=== PATIENT | female | born 1955 | race Caucasian/White ===

== ENCOUNTER → 2018-08-28 08:52 | Outpatient (CLI) | payer OTHER, SELFPAY ==
[2018-08-28 09:48] LABS: Add Manual Diff / Slide Review NO; Basophils Absolute Auto 0 /uL (0-100); Basophils Percent Auto 1.1 % (0-2); Eosinophils Absolute Auto 100 /uL (0-450); Eosinophils Percent Auto 2.4 % (2-4); Hemoglobin 13.2 g/dL (12.0-16.0); Lymphocytes Absolute Auto 900 /uL (1100-4500); Lymphocytes Percent Auto 37.6 % (25-40); Mean Corpuscular HGB Conc 34.7 % (30-36); Mean Corpuscular Hemoglobin 33.4 PG (26-34); Mean Corpuscular Volume 96.4 fL (80-100); Monocytes Absolute Auto 200 /uL (0-900); Monocytes Percent Auto 7.7 % (3-14); Neutrophils Absolute Auto 1300 /uL (1500-7000); Neutrophils Percent Auto 51.2 % (50-75); Red Blood Cell Count 3.94 X10^6/uL (4.0-5.2); Red Cell Distribution Width 14.7 % (11.6-14.8); White Blood Cell Count 2.5 X10^3/uL (4.5-11.0)
[2018-08-28 10:17] LABS: Platelet Count 40 X10^3/uL (150-400)
[2018-08-28 10:20] LABS: Platelet Estimate Decreased on smear; RBC Morphology Normal Morphology
[2018-08-28 10:22] LABS: Alanine Aminotransferase 113 IU/L (9-52); Albumin 3.4 g/dL (3.5-5.0); Alkaline Phosphatase 94 U/L (38-126); Aspartate Aminotransferase 201 IU/L (14-36); BUN Creatinine Ratio 21.7 (6-22); Bilirubin Total 1.4 mg/dL (0.2-1.3); Blood Urea Nitrogen 13 mg/dL (7-17); Calcium 8.6 mg/dL (8.4-10.2); Carbon Dioxide 27 mmol/L (22-32); Chloride 106 mmol/L (98-107); Estimated Glomerular Filt Rate > 60.0 mL/min (>60); Globulin 3.4 g/dL (1.7-4.1); Glucose 135 mg/dL (80-110); HEMOLYSIS < 15 (0-50); Potassium 4.5 mmol/L (3.4-5.1); Sodium 138 mmol/L (137-145); Total Protein 6.8 g/dL (6.3-8.2)
[2018-09-01 15:01] LABS: Mitogen-NIL > 10.00 IU/mL; NIL 0.08 IU/mL; QuantiFERON TB NEGATIVE (Negative); TB1-NIL < 0.01 IU/mL; TB2-NIL 0.02 IU/mL
== END ==
PROVIDERS: Visit Provider Dermatology
DX: L40.0 Psoriasis vulgaris (principal)
CPT/HCPCS: 36415; 80053; 85025; 86480

== ENCOUNTER 2021-06-15 17:07 | Emergency (ER) | payer OTHER, SELFPAY ==
[2021-06-15] VITALS (10 sets, daily range): BP systolic 178–211; BP diastolic 77–101; PULSE 103–128; RESP 18–34; TEMP 37.2; O2SAT 97–100; BMI 27.4
[2021-06-15 17:44] LABS: Add Manual Diff / Slide Review NO; Basophils Absolute Auto 0 /uL (0-100); Basophils Percent Auto 1.1 % (0-2); Eosinophils Absolute Auto 100 /uL (0-450); Eosinophils Percent Auto 3.1 % (2-4); Hematocrit 24.7 % (36-46); Hemoglobin 8.4 g/dL (12.0-16.0); Lymphocytes Absolute Auto 1100 /uL (1100-4500); Lymphocytes Percent Auto 29.6 % (25-40); Mean Corpuscular HGB Conc 34.1 % (30-36); Mean Corpuscular Hemoglobin 31.8 PG (26-34); Monocytes Absolute Auto 400 /uL (0-900); Monocytes Percent Auto 12.4 % (3-14); Neutrophils Absolute Auto 1900 /uL (1500-7000); Neutrophils Percent Auto 53.8 % (50-75); Platelet Count 69 X10^3/uL (150-400); Red Blood Cell Count 2.65 X10^6/uL (4.0-5.2); Red Cell Distribution Width 13.7 % (11.6-14.8); White Blood Cell Count 3.6 X10^3/uL (4.5-11.0)
[2021-06-15 17:52] LABS: Alanine Aminotransferase 28 IU/L (<35); Albumin 2.5 g/dL (3.5-5.0); Albumin Globulin Ratio 0.8 (1.0-2.8); Alkaline Phosphatase 86 U/L (38-126); Aspartate Aminotransferase 86 IU/L (14-36); BUN Creatinine Ratio 23.4 (6-22); Bilirubin Total 0.9 mg/dL (0.2-1.3); Blood Urea Nitrogen 18 mg/dL (7-17); Calcium 8.5 mg/dL (8.4-10.2); Carbon Dioxide 30 mmol/L (22-32); Chloride 109 mmol/L (98-107); Estimated Glomerular Filt Rate > 60.0 mL/min (>60); Globulin 3.3 g/dL (1.7-4.1); Glucose 100 mg/dL (80-110); HEMOLYSIS < 15 (0-50); Lipase 200 U/L (23-300); Potassium 3.5 mmol/L (3.4-5.1); Sodium 139 mmol/L (137-145); Total Protein 5.8 g/dL (6.3-8.2)
--- NOTE | 2021-06-15 19:01 | ED_ITS ---
HPI - Abdominal Pain General Chief Complaint: Abdominal Pain Stated Complaint: sent by Dr Loredo for fluid draining Time Seen by Provider: 06/15/21 19:01 Source: patient Mode of arrival: Ambulatory History of Present Illness HPI narrative: Patient is 66-year-old female with history of hepatitis C and psoriasis presenting with worsening abdominal distension. She states that previously her abdomen distended she took diuretics prescribed by her primary care provider which seemed to help however the distension has gotten worse. She started a new medication for her psoriasis and injectable which she gives herself. She feels like this has caused the increased swelling in her abdomen. She has had increased fatigue. She denies any abdominal pain she has no shortness of breath no fever or chills. Denies any nausea or vomiting. Her abdomen is quite distended. Patient denies any alcohol use. Related Data Home Medications Medication Instructions Recorded Confirmed eszopiclone 1 mg tablet mg 06/15/21 meloxicam 7.5 mg tablet 7.5 mg PO DAILY PRN 06/15/21 06/15/21 torsemide 20 mg tablet 20 mg PO DAILY 06/15/21 06/15/21 Allergies Allergy/AdvReac Type Severity Reaction Status Date / Time Opioids - Morphine Analogues Allergy Mild severe Verified 06/15/21 18:57 nausea and insomnia erythromycin base AdvReac Intermediate really Verified 06/15/21 18:57 sick to stomach Review of Systems Review of Systems Narrative: GENERAL: Denies chills, fatigue, malaise, fever, sweats, travel HEENT: Denies sinus pain, ear pain, sore throat, difficulty swallowing, neck pain RESPIRATORY: Denies dyspnea, cough, wheezing, hemoptysis, sputum. CARDIOVASCULAR: Denies chest pain, palpitations, orthopnea, edema GASTROINTESTINAL: See HPI : Denies dysuria, frequency, incontinence, hematuria, urinary retention, flank pain. MUSCULOSKELETAL: Denies weakness, joint pain, or bony pain SKIN: No rash, no erythema, no pruritus NEUROLOGIC: Denies weakness, dizziness, headache, numbness, change in speech, confusion PSYCHIATRIC: No concerning psychosocial issues. 12 point review of systems is negative except for those stated above and HPI Patient History Surgical History Status post hysterectomy Status post tubal ligation Family History Brother Age: 72 High cholesterol Father Heart disease Social History Smoking Status: Never smoker Smoking Status: Never smoker alcohol intake frequency: other Substance Use Type: does not use Exam Initial Vital Signs Initial Vital Signs: Vital Signs Temperature 98.9 F 06/15/21 17:10 Pulse Rate 111 H 06/15/21 17:10 Respiratory Rate 18 06/15/21 17:10 Blood Pressure 197/101 H 06/15/21 17:10 Pulse Oximetry 100 06/15/21 17:10 GENERAL: Alert 66-year-old female well-appearing HEENT: Head atraumatic,EOMI, pupils reactive, face symmetric, moist mucous membranes CARDIOVASCULAR: Regular rate and rhythm without murmurs, rubs or gallops. RESPIRATORY: Breath sounds equal bilaterally, no wheezes rales or rhonchi. ABDOMEN: Distended positive fluid wave nontender no erythema EXTREMITIES: Normal range of motion, no clubbing. +2 pitting edema Neurovascularly intact NEUROLOGICAL: Alert and oriented x4.Normal gait and speech SKIN: Warm, dry, no laceration, no petechiae, no rashes or lesions. No jaundice Procedures Paracentesis Local Anesthetic: lidocaine 1% Amount of anesthesia used (mL): 5 Fluid: clear Post Procedure Exam: awake, alert, normal BP, normal HR and normal SpO2 Patient Tolerated Procedure: Well Complications: none Course Orders Ordered: ED Orders 06/15/21 17:34 CEA [Carcinoembryonic Antigen] Stat Cancer Antigen 125 Stat Complete Blood Count AUTO DIFF Stat Comprehensive Metabolic Panel Stat LDH [Lactate Dehydrogenase] Stat Lipase Stat 06/15/21 19:07 CT abdomen pelvis w con Stat US abdomen limited Stat 06/15/21 19:45 US pelvic complete Stat 06/15/21 20:10 PTT [Partial Thromboplastin Time] Stat Prothrombin Time INR Stat 06/15/21 20:50 Albumin Body Fluid Stat Body Fluid Culture Stat Cell Count w Diff Body Fluid Stat Glucose Body Fluid Stat LDH Body Fluid Stat Total Protein Body Fluid Stat Vital Signs Vital signs: Vital Signs - 8 hr 06/15/21 17:10 06/15/21 18:47 06/15/21 18:49 Temperature 98.9 F Pulse Rate 111 H 103 H Respiratory Rate 18 22 Blood Pressure 197/101 H 211/97 H Pulse Oximetry 100 100 06/15/21 18:50 06/15/21 19:00 06/15/21 19:30 Temperature Pulse Rate 104 H 105 H 110 H Respiratory Rate 22 32 H 34 H Blood Pressure 190/77 H 178/86 H 184/81 H Pulse Oximetry 99 97 97 06/15/21 20:03 06/15/21 20:30 06/15/21 21:29 Temperature Pulse Rate 128 H 104 H 108 H Respiratory Rate 24 Blood Pressure 186/89 H Pulse Oximetry 99 97 99 06/15/21 21:36 Temperature Pulse Rate 108 H Respiratory Rate 20 Blood Pressure 186/89 H Pulse Oximetry 100 MDM - Abdominal Pain Lab Data Result diagrams: 06/15/21 17:34 06/15/21 17:34 Labs: Lab Results 06/15/21 06/15/21 06/15/21 Range/Units 17:34 17:34 20:10 WBC 3.6 L (4.5-11.0) X10^3/uL RBC 2.65 L (4.0-5.2) X10^6/uL Hgb 8.4 L (12.0-16.0) g/dL Hct 24.7 L (36-46) % MCV 93.0 (80-100) fL MCH 31.8 (26-34) PG MCHC 34.1 (30-36) % RDW 13.7 (11.6-14.8) % Plt Count 69 L (150-400) X10^3/uL Neut % (Auto) 53.8 (50-75) % Lymph % (Auto) 29.6 (25-40) % Kendall % (Auto) 12.4 (3-14) % Eos % (Auto) 3.1 (2-4) % Baso % (Auto) 1.1 (0-2) % Neut # (Auto) 1900 (1645-6786) /uL Lymph # (Auto) 1100 (5175-2003) /uL Kendall # (Auto) 400 (0-900) /uL Eos # (Auto) 100 (0-450) /uL Baso # (Auto) 0 (0-100) /uL PT 14.5 H (10.1-12.7) SECONDS INR 1.3 (0.9-1.3) APTT 31 (26.4-36.2) SECONDS Sodium 139 (137-145) mmol/L Potassium 3.5 (3.4-5.1) mmol/L Chloride 109 H (98-107) mmol/L Carbon Dioxide 30 (22-32) mmol/L BUN 18 H (7-17) mg/dL Creatinine 0.77 (0.52-1.04) mg/dL Estimated GFR > 60.0 (>60) mL/min BUN/Creatinine Ratio 23.4 H (6-22) Glucose 100 (80-110) mg/dL Calcium 8.5 (8.4-10.2) mg/dL Total Bilirubin 0.9 (0.2-1.3) mg/dL AST 86 H (14-36) IU/L ALT 28 (<35) IU/L Alkaline Phosphatase 86 (38-126) U/L Total Protein 5.8 L (6.3-8.2) g/dL Albumin 2.5 L (3.5-5.0) g/dL Globulin 3.3 (1.7-4.1) g/dL Albumin/Globulin Ratio 0.8 L (1.0-2.8) Lipase 200 (23-300) U/L Fluid Color Fluid Appearance Fluid RBC /uL Fld Tot Nucleated Cell /uL Fluid Polynuclear WBCs % Fluid Mononuclear WBCs % Fluid Eosinophils % Fluid Other Cells % Body Fluid Clot Fluid Glucose mg/dL Fluid Total Protein g/dL Fluid Albumin g/dL Fluid LDH U/L 12/16/21 Range/Units 20:50 WBC (4.5-11.0) X10^3/uL RBC (4.0-5.2) X10^6/uL Hgb (12.0-16.0) g/dL Hct (36-46) % MCV (80-100) fL MCH (26-34) PG MCHC (30-36) % RDW (11.6-14.8) % Plt Count (150-400) X10^3/uL Neut % (Auto) (50-75) % Lymph % (Auto) (25-40) % Kendall % (Auto) (3-14) % Eos % (Auto) (2-4) % Baso % (Auto) (0-2) % Neut # (Auto) (2761-7959) /uL Lymph # (Auto) (8614-2544) /uL Kendall # (Auto) (0-900) /uL Eos # (Auto) (0-450) /uL Baso # (Auto) (0-100) /uL PT (10.1-12.7) SECONDS INR (0.9-1.3) APTT (26.4-36.2) SECONDS Sodium (137-145) mmol/L Potassium (3.4-5.1) mmol/L Chloride (98-107) mmol/L Carbon Dioxide (22-32) mmol/L BUN (7-17) mg/dL Creatinine (0.52-1.04) mg/dL Estimated GFR (>60) mL/min BUN/Creatinine Ratio (6-22) Glucose (80-110) mg/dL Calcium (8.4-10.2) mg/dL Total Bilirubin (0.2-1.3) mg/dL AST (14-36) IU/L ALT (<35) IU/L Alkaline Phosphatase (38-126) U/L Total Protein (6.3-8.2) g/dL Albumin (3.5-5.0) g/dL Globulin (1.7-4.1) g/dL Albumin/Globulin Ratio (1.0-2.8) Lipase (23-300) U/L Fluid Color Yellow Fluid Appearance Clear Fluid RBC < 1000 /uL Fld Tot Nucleated Cell 143 /uL Fluid Polynuclear WBCs 2 % Fluid Mononuclear WBCs 18 % Fluid Eosinophils 0 % Fluid Other Cells 80 % Body Fluid Clot No clots present Fluid Glucose 98 mg/dL Fluid Total Protein < 2.0 g/dL Fluid Albumin < 1.0 g/dL Fluid LDH 146 U/L [facility] Narrative Medical decision making narrative: The patient has new ascites with history of hepatitis C concern for cancer. She is also found to have a large ovarian cyst possibly ovarian cancer as well. She denies any alcohol use. She never had ascites or been diagnosed with liver failure. Paracentesis fluid reveals clear yellow with a SAAG 2.4, suggesting portal hypertension. Fluid has been sent for analysis no evidence SBP. 1 L of fluid was removed, unable to get any more off attempted repositioning the patient and adjusting catheter but unsuccessful. Patient has close follow-up with her primary care provider next week Discharge Plan Departure Patient Disposition: Home Clinical Impression: Ascites Instructions: DI for Ascites, DI for Abdominal Paracentesis Activity Restrictions/Additional Instructions: *You have been diagnosed with abdominal ascites *What to do: At this time testing is pending on the fluid. Only 1 L of fluid was removed. He will need to have more removed. Further workup will be needed to determine cause of fluid buildup. *Continue to take medications as directed torsemide daily as previously prescribed *Follow up with your primary care provider in 2-3 days *Return to ER if you should have increasing abdominal pain, fever, chills, redness, difficulty breathing or any new, worsening or concerning symptoms Prescriptions: No Action torsemide 20 mg tablet 20 mg PO DAILY 0RF meloxicam 7.5 mg tablet 7.5 mg PO DAILY PRN (Reason: Pain (Scale Score 1-3)) 0RF eszopiclone 1 mg tablet 0RF Referrals: Therese Loredo PA-C [Primary Care Provider] -
--- NOTE | 2021-06-15 19:07 | DI.CT.S_ITS ---
PROCEDURE: CT ABDOMEN PELVIS W CON INDICATIONS: new ascites hx hep c TECHNIQUE: After the administration of IV contrast, axial sections were acquired from the lung bases to the pubic symphysis. Coronal and sagittal reformats were performed. For radiation dose reduction, the following was used: automated exposure control, adjustment of mA and/or kV according to patient size. COMPARISON: None. FINDINGS: Image quality: Excellent. Lung bases: Unremarkable. Heart: No significant findings. Moderate hiatal hernia. ABDOMEN: Liver: Nodular cirrhotic morphology. No conspicuous lesion on this single phase exam. Gallbladder: Not distended. Gallbladder wall thickening. Pericholecystic fluid or ascites. Biliary ducts: Unremarkable. Pancreas: Unremarkable. Spleen: Spleen is prominent measuring 12.6 cm. Adrenal Glands: No nodule. Kidneys and Ureters: No hydronephrosis. Small right cortical hypodensity. Stomach and Bowel: No small bowel obstruction. The small bowel appears thickened. Multiple prominent loops of small bowel which are fluid-filled. Diverticulosis. Normal appendix. Peritoneum: Large volume of ascites. No free air. Ventral Wall: Probable umbilical hernia. Abdominal Nodes: No retroperitoneal or mesenteric adenopathy by size criteria. Vessels: Aorta and inferior vena cava are normal in size. Perisplenic varices. Splenorenal shunt. Paraesophageal varices. Main portal vein is patent. PELVIS: Pelvic Organs: Large cyst in the right paramedian pelvis measuring 8.4 x 7.3 cm. The uterus is absent. Bladder: Unremarkable. Pelvic Nodes: No enlarged lymph nodes. Miscellaneous: Right inguinal hernia containing ascites. Flank edema. Bones: No compression fracture. DDD. IMPRESSION: 1. Cirrhotic liver morphology. Large volume of ascites. Portal hypertension with upper abdominal varices, splenorenal shunt, paraesophageal varices. Prominent spleen. 2. Prominent loops of small bowel with wall thickening. This could be due to portal enteropathy. 3. Suspect large ovarian cyst measuring 8.4 cm. -Recommend initial further evaluation with pelvic ultrasound. Recommend follow-up gynecological consultation. Pelvic MRI with IV contrast could be considered for further evaluation. 4. Moderate-sized hiatal hernia. Right inguinal hernia. Dictated by: Juarez Mesa M.D. on 06/15/2021 at 19:30 Approved by: Juarez Mesa M.D. on 06/15/2021 at 19:40
--- NOTE | 2021-06-15 19:07 | DI.US.S_ITS ---
PROCEDURE: US ABDOMEN LIMITED INDICATIONS: ascites TECHNIQUE: Real-time scanning was performed of the abdominal quadrants, with image documentation. COMPARISON: [facility], CT, CT ABDOMEN PELVIS W CON, 06/15/2021, 19:15. FINDINGS: Large volume ascites in all 4 abdominal quadrants. The RLQ skin is marked for paracentesis. IMPRESSION: Large volume of ascites. Skin marked for paracentesis. Dictated by: Juarez Mesa M.D. on 06/15/2021 at 21:38 Approved by: Juarez Mesa M.D. on 06/15/2021 at 21:40
--- NOTE | 2021-06-15 19:45 | DI.US.S_ITS ---
PROCEDURE: US PELVIC COMPLETE INDICATIONS: large ovarian cyst TECHNIQUE: Real-time scanning was performed of the pelvic organs, with image documentation. Additional endovaginal scanning was necessary due to incomplete visualization of the adnexal and endometrial structures by transabdominal scanning. COMPARISON: [facility], CT, CT ABDOMEN PELVIS W CON, 06/15/2021, 19:15. FINDINGS: Uterus: Surgically absent. Ovaries: Ovaries are not well seen. Large midline anechoic pelvic cyst with a thin wall measuring 8.3 x 7.5 x 7.3 cm. There is a minimal vascularity at the cyst wall suspected. Other: Large volume of ascites IMPRESSION: Large midline pelvic cyst measuring 8.3 cm. Recommend gynecological consultation. We strive to produce accurate, complete, and clear reports of imaging services. To assist us in improving patient care, this report was composed using standard report templates and voice recognition software. Therefore, it may contain abnormal punctuation, insertions and/or omissions. Occasional wrong-word or sound-alike substitutions may occur. Though we review the report and make efforts to correct it, we do recommend that the report be read carefully in proper context to recognize any text inaccuracies. Dictated by: Juarez Mesa M.D. on 06/15/2021 at 21:35 Approved by: Juarez Mesa M.D. on 06/15/2021 at 21:38
[2021-06-15 20:27] LABS: INR 1.3 (0.9-1.3); Prothrombin Time 14.5 SECONDS (10.1-12.7)
[2021-06-15 20:30] LABS: PTT Partial Thromboplastin Tim 31 SECONDS (26.4-36.2)
[2021-06-15 21:22] LABS: Body Fluid Tot Nucleated Cells 143 /uL
[2021-06-15 21:28] LABS: Body Fluid Appearance CLEAR; Body Fluid Clotted? NO CLOTS PRESENT; Body Fluid Color YELLOW; Body Fluid Red Blood Cells < 1000 /uL
[2021-06-15 21:36] LABS: LDH Body Fluid 146 U/L
[2021-06-15 21:37] LABS: Albumin Body Fluid < 1.0 g/dL; Glucose Body Fluid 98 mg/dL; Total Protein Body Fluid < 2.0 g/dL
[2021-06-15 22:25] LABS: Eosinophils Body Fluid 0 %; Mononuclear WBC Body Fluid 18 %; Other Cells Body Fluid 80 %; Polynuclear WBC Body Fluid 2 %
[2021-06-16 06:03] LABS: Lactate Dehydrogenase 620 U/L (313-618)
[2021-06-16 06:42] LABS: Cancer Antigen 125 822 U/mL (0-35); Carcinoembryonic Antigen 21.2 ng/mL (0.1-3.0)
== END 2021-06-15 21:38 | disposition home or self-care (01) ==
PROVIDERS: Emergency Medicine; Emergency Provider Emergency Medicine; PCP Student in an Organized Health Care Education/Training Program; Referring Provider Student in an Organized Health Care Education/Training Program
DX: R18.8 Other ascites (principal)
CPT/HCPCS: 36415; 49082; 74177; 76705; 76856; 80053; 82042; 82378; 82945; 83615; 83690; 84157; 85025; 85610; 85730; 86304; 87070; 87075; 87205; 89051; 99284

== ENCOUNTER → 2021-08-03 12:38 | Outpatient (CLI) | payer OTHER, SELFPAY ==
[2021-08-03 14:07] LABS: HEMOLYSIS < 15 (0-50); Iron 37 ug/dL (37-170)
[2021-08-03 14:19] LABS: Percent Iron Saturation 9 % (15-50); Total Iron Binding Capacity 399 ug/dL (265-497); Transferrin 390 mg/dL (206-381)
[2021-08-03 19:38] LABS: Hepatitis B Surface Antigen NEGATIVE s/c (NEGATIVE)
[2021-08-04 02:47] LABS: Hepatitis B Surf AB Quant <3.1 mIU/mL (Immunity>9.9)
[2021-08-04 03:38] LABS: Hepatitis B Core Antibody Negative (Negative)
[2021-08-04 04:44] LABS: Immunoglobulin G, Quantitative 1526 mg/dL (586-1602)
[2021-08-04 06:19] LABS: Alpha Fetoprotein 2.6 ng/mL (0.0-8.3)
[2021-08-05 16:53] LABS: Anti Mitochondrial ABY IGG <20.0 Units (0.0-20.0); Smooth Muscle Antibody 16 Units (0-19)
[2021-08-05 17:36] LABS: ANA Screen, IFA Negative (.)
[2021-08-09 11:16] LABS: HCV Genotype 3
[2021-08-09 11:52] LABS: HCV Genotype 3 (.); HCV LOG 10 6.041 (.)
== END ==
PROVIDERS: PCP Student in an Organized Health Care Education/Training Program; Referring Provider Specialist; Visit Provider Specialist
DX: K74.69 Other cirrhosis of liver (principal); B19.20 Unspecified viral hepatitis C without hepatic coma; Z01.812 Encounter for preprocedural laboratory examination; Z20.822 Contact with and (suspected) exposure to COVID-19
CPT/HCPCS: 36415; 82105; 82784; 83516; 83540; 83550; 86038; 86704; 86706; 87340; 87522

== ENCOUNTER 2022-09-11 16:36 | Inpatient (IN) | payer OTHER, SELFPAY ==
[2022-09-11] VITALS (26 sets, daily range): BP systolic 118–149; BP diastolic 58–70; PULSE 87–112; RESP 16–26; TEMP 36.2–37; O2SAT 93–100; BMI 30.7
[2022-09-11 19:33] LABS: Add Manual Diff / Slide Review NO; Basophils Absolute Auto 100 /uL (0-100); Basophils Percent Auto 1.6 % (0-2); Eosinophils Absolute Auto 0 /uL (0-450); Eosinophils Percent Auto 0.7 % (2-4); Lymphocytes Absolute Auto 900 /uL (1100-4500); Lymphocytes Percent Auto 20.6 % (25-40); Mean Corpuscular HGB Conc 29.2 % (30-36); Mean Corpuscular Hemoglobin 20.9 PG (26-34); Mean Corpuscular Volume 71.6 fL (80-100); Monocytes Absolute Auto 400 /uL (0-900); Monocytes Percent Auto 7.9 % (3-14); Neutrophils Absolute Auto 3100 /uL (1500-7000); Neutrophils Percent Auto 69.2 % (50-75); Platelet Count 119 X10^3/uL (150-400); Red Blood Cell Count 2.23 X10^6/uL (4.0-5.2); Red Cell Distribution Width 19.1 % (11.6-14.8); White Blood Cell Count 4.4 X10^3/uL (4.5-11.0)
[2022-09-11 19:41] LABS: Hemoglobin 4.7 g/dL (12.0-16.0)
[2022-09-11 19:45] LABS: Alanine Aminotransferase 24 IU/L (<35); Albumin 2.5 g/dL (3.5-5.0); Albumin Globulin Ratio 0.9 (1.0-2.8); Alkaline Phosphatase 69 U/L (38-126); Aspartate Aminotransferase 52 IU/L (14-36); BUN Creatinine Ratio 14.9 (6-22); Bilirubin Total 3.1 mg/dL (0.2-1.3); Blood Urea Nitrogen 17 mg/dL (7-17); Calcium 7.7 mg/dL (8.4-10.2); Carbon Dioxide 16 mmol/L (22-32); Chloride 107 mmol/L (98-107); Estimated Glomerular Filt Rate 53 mL/min (>60); Globulin 2.8 g/dL (1.7-4.1); Glucose 131 mg/dL (80-110); Lipase 107 U/L (23-300); Potassium 4.4 mmol/L (3.4-5.1); Sodium 131 mmol/L (137-145); Total Protein 5.3 g/dL (6.3-8.2)
[2022-09-11 19:48] LABS: HEMOLYSIS 57 (0-50)
[2022-09-11 19:48] LABS: INR 1.8 (0.9-1.3); Prothrombin Time 20.8 SECONDS (10.1-12.7)
[2022-09-11 19:51] LABS: PTT Partial Thromboplastin Tim 23 SECONDS (26-36)
[2022-09-11 19:55] LABS: Lactate (Lactic Acid) 2.5 mmol/L (0.7-2.1)
--- NOTE | 2022-09-11 20:06 | ED_ITS ---
HPI - Abdominal Pain General Chief Complaint: Abdominal Pain Stated Complaint: Bloating, full of fluid per patient Time Seen by Provider: 09/11/22 20:06 Source: patient and family Mode of arrival: Family Vehicle History of Present Illness HPI narrative: Patient is a 67-year-old female history of hepatitis-C presenting today with increasing shortness of breath weakness and abdominal bloating. She reports that she had a viral illness a couple weeks ago she had a fever for a day generalized fatigue which mostly resolved. However she still is extremely tired short of breath with exertion. She is noticed increased abdominal distention over the last couple of days. In 2020 she required a paracentesis which was quite traumatic for her, she reports still having nightmares. She has been scared to come in because of it. She denies any nausea vomiting no diarrhea. She reports being swollen all over. Related Data Home Medications Medication Instructions Recorded Confirmed spironolactone 25 mg tablet 25 mg PO DAILY 09/11/22 09/11/22 Allergies Allergy/AdvReac Type Severity Reaction Status Date / Time erythromycin base Allergy Intermediate mouth Verified 09/11/22 17:32 thrush. Opioids - Morphine Analogues AdvReac Mild severe Verified 09/11/22 17:32 nausea and insomnia Review of Systems Review of Systems ROS Unobtainable: All systems reviewed & are unremarkable except as noted in HPI and below Patient History Surgical History Status post hysterectomy Status post tubal ligation Family History Brother Age: 73 High cholesterol Father Heart disease Social History household members: none Smoking Status: Never smoker alcohol intake: never Smoking Status: Never smoker alcohol intake frequency: other Substance Use Type: does not use Exam Initial Vital Signs Initial Vital Signs: Vital Signs Temperature 97.1 F L 09/11/22 17:21 Pulse Rate 87 09/11/22 17:21 Respiratory Rate 19 09/11/22 17:21 Blood Pressure 149/65 H 09/11/22 17:21 Pulse Oximetry 100 09/11/22 17:21 Oxygen Delivery Method Room Air 09/11/22 17:21 GENERAL: Alert anxious 67-year-old female HEENT: Head atraumatic,EOMI, pupils reactive, face symmetric, moist mucous membranes CARDIOVASCULAR: Regular rate and rhythm without murmurs, rubs or gallops. RESPIRATORY: Breath sounds equal bilaterally, no wheezes rales or rhonchi. ABDOMEN: Distention positive fluid wave EXTREMITIES: Normal range of motion, no clubbing. +3 edema Neurovascularly intact NEUROLOGICAL: Alert and oriented x4. SKIN: Warm, dry, no laceration, no petechiae, no rashes or lesions. Course Orders Ordered: Acetaminophen (Acetaminophen 325 Mg Tablet) 650 mg PO Q8H PRN PRN Reason: Fever/Mild Pain (1-3) Naloxone HCl (Naloxone 0.4 Mg/Ml Vial) 0.2 mg IV Q2MIN PRN PRN Reason: Opiate Reversal Ondansetron HCl (Ondansetron 4 Mg/2 Ml Inj) 4 mg IV Q8HR PRN PRN Reason: Nausea And Vomiting Oxycodone HCl (Oxycodone Ir 5 Mg Tablet) 5 mg PO Q6HR PRN PRN Reason: Pain, Moderate (4-6) Last Admin: 09/12/22 02:10 Dose: 5 mg Documented By: AW Discontinued Medications Etomidate (Etomidate 2 Mg/Ml 10 Ml Vial) 6 mg IV NOW ONE Stop: 09/11/22 22:15 Last Admin: 09/11/22 22:19 Dose: Not Given Documented By: RB Hydromorphone HCl (Hydromorphone 0.5 Mg Inj) 0.5 mg IV NOW ONE Stop: 09/11/22 23:01 Last Admin: 09/11/22 23:10 Dose: 0.5 mg Documented By: RB Lorazepam (Lorazepam 2 Mg/Ml Inj) 1 mg IV NOW ONE Stop: 09/11/22 22:11 Last Admin: 09/11/22 22:19 Dose: Not Given Documented By: RB Morphine Sulfate (Morphine 2 Mg/Ml Inj) 2 mg IV NOW ONE Stop: 09/11/22 20:26 Last Admin: 09/11/22 20:36 Dose: 2 mg Documented By: RB Ondansetron HCl (Ondansetron 4 Mg Odt) 4 mg PO NOW PRN PRN Reason: Nausea And Vomiting Ondansetron HCl (Ondansetron 4 Mg/2 Ml Inj) 4 mg IV NOW PRN PRN Reason: Nausea And Vomiting Last Admin: 09/11/22 20:36 Dose: 4 mg Documented By: RB Vital Signs Vital signs: Vital Signs - 8 hr 09/11/22 21:59 09/11/22 21:56 09/11/22 21:56 Temperature Pulse Rate 102 H 104 H Respiratory Rate 16 24 Blood Pressure 135/63 138/65 Pulse Oximetry 96 09/11/22 21:57 09/11/22 21:57 09/11/22 22:00 Temperature Pulse Rate 104 H Respiratory Rate Blood Pressure 135/63 134/59 L Pulse Oximetry 99 09/11/22 22:00 09/11/22 22:15 09/11/22 22:15 Temperature Pulse Rate 101 H 97 H Respiratory Rate 23 Blood Pressure 128/59 L Pulse Oximetry 98 96 09/11/22 22:30 09/11/22 22:30 09/11/22 22:41 Temperature Pulse Rate 97 H 98 H Respiratory Rate 25 H 23 Blood Pressure 122/58 L Pulse Oximetry 96 93 09/11/22 22:41 09/11/22 22:45 09/11/22 22:45 Temperature Pulse Rate 96 H Respiratory Rate 24 Blood Pressure 118/59 L 127/59 L Pulse Oximetry 97 09/11/22 23:00 09/11/22 23:00 09/11/22 22:05 Temperature 98.4 F Pulse Rate 97 H 100 H Respiratory Rate 26 H 19 Blood Pressure 128/60 136/60 Pulse Oximetry 96 09/11/22 23:06 09/11/22 23:00 09/11/22 23:16 Temperature 98.4 F 98.1 F 98.6 F Pulse Rate 97 H 97 H 100 H Respiratory Rate 25 H 26 H 22 Blood Pressure 122/58 L 128/60 141/65 H Pulse Oximetry 09/11/22 23:15 09/11/22 23:15 09/11/22 23:30 Temperature Pulse Rate 101 H Respiratory Rate 19 Blood Pressure 141/65 H 142/65 H Pulse Oximetry 98 09/11/22 23:30 09/11/22 23:45 09/11/22 23:45 Temperature Pulse Rate 100 H 95 H Respiratory Rate 19 19 Blood Pressure 143/65 H Pulse Oximetry 93 98 MDM - Abdominal Pain Lab Data 09/12/22 04:41 09/12/22 04:41 Labs: Lab Results 09/11/22 09/11/22 09/11/22 Range/Units 19:25 19:26 19:26 WBC 4.4 L (4.5-11.0) X10^3/uL RBC 2.23 L (4.0-5.2) X10^6/uL Hgb 4.7 L* (12.0-16.0) g/dL Hct 16.0 L* (36-46) % MCV 71.6 L (80-100) fL MCH 20.9 L (26-34) PG MCHC 29.2 L (30-36) % RDW 19.1 H (11.6-14.8) % Plt Count 119 L (150-400) X10^3/uL Neut % (Auto) 69.2 (50-75) % Lymph % (Auto) 20.6 L (25-40) % [place] % (Auto) 7.9 (3-14) % Eos % (Auto) 0.7 L (2-4) % Baso % (Auto) 1.6 (0-2) % Neut # (Auto) 3100 (6249-3553) /uL Lymph # (Auto) 900 L (1094-4540) /uL [place] # (Auto) 400 (0-900) /uL Eos # (Auto) 0 (0-450) /uL Baso # (Auto) 100 (0-100) /uL PT (10.1-12.7) SECONDS INR (0.9-1.3) APTT (26-36) SECONDS Sodium 131 L (137-145) mmol/L Potassium 4.4 (3.4-5.1) mmol/L Chloride 107 (98-107) mmol/L Carbon Dioxide 16 L (22-32) mmol/L BUN 17 (7-17) mg/dL Creatinine 1.14 H (0.52-1.04) mg/dL Estimated GFR 53 L (>60) mL/min BUN/Creatinine Ratio 14.9 (6-22) Glucose 131 H (80-110) mg/dL Lactate (0.7-2.1) mmol/L Calcium 7.7 L (8.4-10.2) mg/dL Total Bilirubin 3.1 H (0.2-1.3) mg/dL Conjugated Bilirubin (0.0-0.3) md/dL AST 52 H (14-36) IU/L ALT 24 (<35) IU/L Alkaline Phosphatase 69 (38-126) U/L Lactate Dehydrogenase 352 H (120-246) U/L Total Protein 5.3 L (6.3-8.2) g/dL Albumin 2.5 L (3.5-5.0) g/dL Globulin 2.8 (1.7-4.1) g/dL Albumin/Globulin Ratio 0.9 L (1.0-2.8) Lipase 107 (23-300) U/L Vitamin B12 748 (239-931) pg/mL Folate 9.3 (2.76-20.0) ng/mL SARS-CoV-2 (PCR) (Negative) Blood Type Antibody Screen Crossmatch 09/11/22 09/11/22 09/11/22 Range/Units 19:26 19:44 19:44 WBC (4.5-11.0) X10^3/uL RBC (4.0-5.2) X10^6/uL Hgb (12.0-16.0) g/dL Hct (36-46) % MCV (80-100) fL MCH (26-34) PG MCHC (30-36) % RDW (11.6-14.8) % Plt Count (150-400) X10^3/uL Neut % (Auto) (50-75) % Lymph % (Auto) (25-40) % [place] % (Auto) (3-14) % Eos % (Auto) (2-4) % Baso % (Auto) (0-2) % Neut # (Auto) (1162-8216) /uL Lymph # (Auto) (6287-5380) /uL [place] # (Auto) (0-900) /uL Eos # (Auto) (0-450) /uL Baso # (Auto) (0-100) /uL PT 20.8 H (10.1-12.7) SECONDS INR 1.8 H (0.9-1.3) APTT 23 L (26-36) SECONDS Sodium (137-145) mmol/L Potassium (3.4-5.1) mmol/L Chloride (98-107) mmol/L Carbon Dioxide (22-32) mmol/L BUN (7-17) mg/dL Creatinine (0.52-1.04) mg/dL Estimated GFR (>60) mL/min BUN/Creatinine Ratio (6-22) Glucose (80-110) mg/dL Lactate 2.5 H (0.7-2.1) mmol/L Calcium (8.4-10.2) mg/dL Total Bilirubin (0.2-1.3) mg/dL Conjugated Bilirubin 0.2 (0.0-0.3) md/dL AST (14-36) IU/L ALT (<35) IU/L Alkaline Phosphatase (38-126) U/L Lactate Dehydrogenase (120-246) U/L Total Protein (6.3-8.2) g/dL Albumin (3.5-5.0) g/dL Globulin (1.7-4.1) g/dL Albumin/Globulin Ratio (1.0-2.8) Lipase (23-300) U/L Vitamin B12 (239-931) pg/mL Folate (2.76-20.0) ng/mL SARS-CoV-2 (PCR) (Negative) Blood Type Antibody Screen Crossmatch 09/11/22 09/11/22 09/11/22 Range/Units 19:49 20:25 21:58 WBC (4.5-11.0) X10^3/uL RBC (4.0-5.2) X10^6/uL Hgb (12.0-16.0) g/dL Hct (36-46) % MCV (80-100) fL MCH (26-34) PG MCHC (30-36) % RDW (11.6-14.8) % Plt Count (150-400) X10^3/uL Neut % (Auto) (50-75) % Lymph % (Auto) (25-40) % [place] % (Auto) (3-14) % Eos % (Auto) (2-4) % Baso % (Auto) (0-2) % Neut # (Auto) (8338-1477) /uL Lymph # (Auto) (1770-9391) /uL [place] # (Auto) (0-900) /uL Eos # (Auto) (0-450) /uL Baso # (Auto) (0-100) /uL PT (10.1-12.7) SECONDS INR (0.9-1.3) APTT (26-36) SECONDS Sodium (137-145) mmol/L Potassium (3.4-5.1) mmol/L Chloride (98-107) mmol/L Carbon Dioxide (22-32) mmol/L BUN (7-17) mg/dL Creatinine (0.52-1.04) mg/dL Estimated GFR (>60) mL/min BUN/Creatinine Ratio (6-22) Glucose (80-110) mg/dL Lactate 2.4 H (0.7-2.1) mmol/L Calcium (8.4-10.2) mg/dL Total Bilirubin (0.2-1.3) mg/dL Conjugated Bilirubin (0.0-0.3) md/dL AST (14-36) IU/L ALT (<35) IU/L Alkaline Phosphatase (38-126) U/L Lactate Dehydrogenase (120-246) U/L Total Protein (6.3-8.2) g/dL Albumin (3.5-5.0) g/dL Globulin (1.7-4.1) g/dL Albumin/Globulin Ratio (1.0-2.8) Lipase (23-300) U/L Vitamin B12 (239-931) pg/mL Folate (2.76-20.0) ng/mL SARS-CoV-2 (PCR) Negative (Negative) Blood Type A Positive Antibody Screen Negative Crossmatch See Detail Imaging Data CT scan - abdomen/pelvis: Radiologist's Impression: PROCEDURE: CT LE LT W CON INDICATIONS: cellulitis TECHNIQUE: After the administration of intravenous contrast, 3 mm axial sections acquired of the left lower extremity, with coronal and sagittal reformatted images. COMPARISON: None. FINDINGS: No destructive or lytic or erosive lesion identified in the left lower extremity to suggest osteomyelitis. No soft tissue organized or rim enhancing fluid collection. Moderate to large suprapatellar knee joint effusion. No evidence of fracture or suspicious bone lesion. Reticular edema throughout the subcutaneous fat of the distal left thigh and left lower leg. IMPRESSION: Extensive lower extremity cellulitis which is circumferential below the level of the knee and predominantly anterior/lateral above the level of the knee. Large suprapatellar knee joint effusion without lipohemarthrosis to suggest fracture. No destructive or erosive or lytic osseous lesion to suggest osteomyelitis. No organized or rim enhancing fluid collection identified. Left inguinal lymphadenopathy is presumably related. Dictated by: Palomo Feliz M.D. on 09/11/2022 at 19:21 ECG Data Interpretation: Sinus tachycardia rate 101 ND interval 120 QRS [address] changes low voltage no MDM Narrative Medical decision making narrative: Patient 67-year-old female history of hepatitis-C ascites presenting today with ongoing fatigue some shortness of breath and increasing abdominal distention. She is go to be very anemic with hemoglobin 4.7 and hematocrit of 16. She denies any vomiting no hematemesis no bloody stool. Abdominal CT shows a large amount of ascites with splenic varices consistent with portal hypertension. Patient is hemodynamically stable she is not hypotensive or tachycardic. She is afebrile she is some mild abdominal discomfort. But I do not suspect spontaneous bacterial peritonitis. Unclear exactly why she is so anemic possibly decrease in production, no evidence of hemorrhage. INR 1.8 Patient would likely benefit a paracentesis however with acute anemia not indicated at this time. I also was the 1 to do the paracentesis last time she does not want me repeating the procedure. Dr. Carias accepts patient Discharge Plan Departure Patient Disposition: Admitted As Inpatient Clinical Impression: Anemia, Ascites Admit Date/Time: 09/11/22 23:56 Admit Provider: Alek Carias
--- NOTE | 2022-09-11 20:15 | DI.CT.S_ITS ---
PROCEDURE: CT ABDOMEN PELVIS W CON INDICATIONS: anemia, ascites TECHNIQUE: After the administration of IV contrast, axial sections were acquired from the lung bases to the pubic symphysis. Coronal and sagittal reformats were performed. For radiation dose reduction, the following was used: automated exposure control, adjustment of mA and/or kV according to patient size. COMPARISON: [facility], CT, CT ABDOMEN PELVIS W CON, 06/15/2021, 19:15. FINDINGS: Image quality: Excellent. Lung bases: There is small bilateral pleural effusions. There is mild compressive atelectasis as well as mild left basilar atelectasis along a partially visualized large hiatal hernia. Heart: Heart is normal in size. ABDOMEN: Liver: No mass lesion. Gallbladder: Gallbladder is partially distended without calcified gallstones or definite wall thickening. There are filling defects in the gallbladder compatible with biliary sludge or noncalcified stones. Biliary ducts: No biliary ductal dilatation. Pancreas: Unremarkable. Spleen: Normal in size. Adrenal Glands: No adrenal nodules. Kidneys and Ureters: No hydronephrosis. Stomach and Bowel: There is diffuse mild small bowel wall thickening. Small and large bowel loops are normal in caliber. There is colonic diverticulosis without acute diverticulitis. Peritoneum: There is a large amount of ascites. No free air. Ventral Wall: No hernia. Abdominal Nodes: No retroperitoneal or mesenteric adenopathy by size criteria. Vessels: Aorta and inferior vena cava are normal in size. There are gastroesophageal and splenic varices consistent with portal hypertension. PELVIS: Pelvic Organs: There is a left adnexal cyst measuring up to 3.0 cm. Bladder: Unremarkable. Pelvic Nodes: No enlarged lymph nodes. Miscellaneous: There is a small right inguinal hernia containing ascitic fluid. Bones: Visualized osseous structures demonstrate no suspicious focal lesions. IMPRESSION: 1. Large amount of ascites in the abdomen and pelvis without evidence of hemoperitoneum. 2. Nodular cirrhotic liver without a definite hepatic mass identified on the current study. If there is clinical suspicion for hepatoma, further evaluation may be obtained with a liver protocol MRI. 3. Gastroesophageal and splenic varices consistent with sequelae of portal hypertension. 4. Diffuse small bowel wall thickening is nonspecific but similar to the prior study and may be secondary to ascites. 5. Large hiatal hernia. 6. Small bilateral pleural effusions. Dictated by: Natan Benz M.D. on 09/11/2022 at 21:23 Approved by: Natan Benz M.D. on 09/11/2022 at 21:32
[2022-09-11] MEDS: MORPHINE 2 MG/ML INJ IV (20:36)
[2022-09-11] MEDS: ONDANSETRON 4 MG/2 ML INJ IV (20:36)
[2022-09-11 20:49] LABS: COVID19 -Nasal RAPID Negative (Negative)
--- NOTE | 2022-09-11 20:53 | P.HP_ITS ---
History of Present Illness History of Present Illness Date Patient Seen: 09/12/22 Time Patient Seen: 00:05 Chief complaint: Bloating, full of fluid per patient Narrative: Ms. Leonard is a 67W with PMH Hepatitic C cirrhosis who presents to the hospital with abdominal swelling and fatigue. She states she was diagnosed with hepatitis C nearly 40 years ago, she was treated years ago with medications, she is not sure what, but doubt it was any of the new antivirals. She has discussed Mavyret with her ground water pump installer, but she states that her physicial did not recommend being treated with this medication. She is on spironolactone at baseline. She states she was fine for a long time. She did present to the hospital May of 2021 for ascites and did get a paracentesis. She states that this was traumatic for her, she distrusts doctors and did not want to return to see any physician. She says her abdominal swelling had been absent until only in the last few days she has noted diffuse swelling in her extremities and abdomen. She has felt fatigued. No dizziness, lightheadedness. No vomiting blood, no dark stools, hematochezia. No colonoscopy or EGD. In the ED workup was done, vitals notable for afebrile, heart rate 80s-100s, blood pressure 140s/60s. Labs notable for WBC 4.4, hgb 4.7, plts 119. MCV 71. INR 1.8. Creatinine 1.14. Bili 3.1, AST/ALT 52/24. Albumin 2.5. Lactate 2.5. CT abdomen showed large ascites, cirrhotic liver without definite mass, varices, small bilateral pleural effusions. She was ordered for blood transfusion and admitted for further treatment. Patient History Surgical History Status post hysterectomy Status post tubal ligation Family & Social History Family History Brother Age: 73 High cholesterol Father Heart disease Safety & Behavioral: Feels Safe in Current Yes Environment Been Physically Hurt or No Threatened By a Person Tobacco & Substance use: Smoking Status Never smoker alcohol intake frequency other Substance Use Type does not use Meds Home Medications and Allergies Home Medications Medication Instructions Recorded Confirmed Type spironolactone 25 mg tablet 25 mg PO DAILY 09/11/22 09/11/22 History Allergies Allergy/AdvReac Type Severity Reaction Status Date / Time erythromycin base Allergy Intermediate mouth Verified 09/11/22 17:32 thrush. Opioids - Morphine Analogues AdvReac Mild severe Verified 09/11/22 17:32 nausea and insomnia Review of Systems Review of Systems Narrative: 14 systems reviewed and negative aside from what is noted in HPI Exam Vital Signs (past 8 hours): - 09/11/22 17:21 09/11/22 19:43 09/11/22 19:53 Temperature 97.1 F L Pulse Rate 87 90 96 H Respiratory Rate 19 23 Blood Pressure 149/65 H Pulse Oximetry 100 100 Oxygen Delivery Method Room Air 09/11/22 20:00 09/11/22 20:00 09/11/22 20:15 Temperature Pulse Rate 92 H 94 H Respiratory Rate 25 H Blood Pressure 141/63 H Pulse Oximetry 100 Oxygen Delivery Method Oxygen Delivery Method Room Air Narrative Exam Narrative: GEN: no acute distress HEENT: moist mucous membranes, pale, jaundiced NECK: trachea midline, no jvd CV: tachycardic, no murmurs PULM: clear bilaterally, no wheezes, rhonchi, rales ABD: soft, nontender, significantly distended, no rebound/guarding EXT: warm and well perfused, 2+ edema, anasarca NEURO: awake, alert, oriented, with no focal deficits Objective Labs 09/11/22 19:25 09/11/22 19:26 Labs: Laboratory Results - last 24 hr 09/11/22 09/11/22 09/11/22 19:25 19:26 19:44 WBC 4.4 L RBC 2.23 L Hgb 4.7 L* Hct 16.0 L* MCV 71.6 L MCH 20.9 L MCHC 29.2 L RDW 19.1 H Plt Count 119 L Neut % (Auto) 69.2 Lymph % (Auto) 20.6 L [place] % (Auto) 7.9 Eos % (Auto) 0.7 L Baso % (Auto) 1.6 Neut # (Auto) 3100 Lymph # (Auto) 900 L [place] # (Auto) 400 Eos # (Auto) 0 Baso # (Auto) 100 PT 20.8 H INR 1.8 H APTT 23 L Sodium 131 L Potassium 4.4 Chloride 107 Carbon Dioxide 16 L BUN 17 Creatinine 1.14 H Estimated GFR 53 L BUN/Creatinine Ratio 14.9 Glucose 131 H Lactate Calcium 7.7 L Total Bilirubin 3.1 H AST 52 H ALT 24 Alkaline Phosphatase 69 Total Protein 5.3 L Albumin 2.5 L Globulin 2.8 Albumin/Globulin Ratio 0.9 L Lipase 107 SARS-CoV-2 (PCR) Blood Type Antibody Screen Crossmatch 09/11/22 09/11/22 09/11/22 19:44 19:49 20:25 WBC RBC Hgb Hct MCV MCH MCHC RDW Plt Count Neut % (Auto) Lymph % (Auto) [place] % (Auto) Eos % (Auto) Baso % (Auto) Neut # (Auto) Lymph # (Auto) [place] # (Auto) Eos # (Auto) Baso # (Auto) PT INR APTT Sodium Potassium Chloride Carbon Dioxide BUN Creatinine Estimated GFR BUN/Creatinine Ratio Glucose Lactate 2.5 H Calcium Total Bilirubin AST ALT Alkaline Phosphatase Total Protein Albumin Globulin Albumin/Globulin Ratio Lipase SARS-CoV-2 (PCR) Negative Blood Type A Positive Antibody Screen Negative Crossmatch See Detail Assessment & Plan Assessment & Plan narrative: 1. Decompensated Hepatitis C cirrhosis -patient presented describing rapid accumulation of ascites -describes decades of hepatitis C, states she has not had full treatment -states she has discussed mavyret as possibility with her ground water pump installer -MELD of 23, [employer] C -large volume ascites on exam and confirmed with imaging -INR 1.8 -ordere abdominal ultrasound with dopplers to eval for portal vein thrombus as explanation for rapid fluid retention -plan for paracentesis, send for cultures, cell count, cytology -trend lfts daily -send hep c studies 2. Severe Anemia, along with pancytopenia -hgb on presentation of 4.7 -suspect secondary to cirrhosis -MCV is low in the 70s -she denies noting any bleeding -ordered for stool guaiac testing -check iron studies, retic count, b12/folate, ldh, haptoglobin -consider peripheral smear pending workup -ordered for PRBC, recheck hemoglobin after transfusion 3. ANA -suspect secondary to hypovolemia -will resuscitate with blood products -recheck creatinine daily I have discussed plan with the patient. I have discussed plan of care with ED physician and bedside nurse. I have reviewed labs, and CT imaging. CODE: Full Proxy: Shivani Jackson, sister Time Spent With Patient Critical Care time: I spent a total of [] minutes of critical care time on this patient's care today; this time is exclusive of procedural time. Quality MIPS - Meds 'Current medications' to include all prescriptions, [id number] products, herbals, cannabis/cannabidiol products, and vitamin/mineral/dietary (nutritional) supplements. I have utilized all available resources to obtain, update, or review the patient?s current medications. [If Yes, STOP here]: Yes
[2022-09-11 21:44] LABS: Reflexed Lactate in 2 Hours Y
[2022-09-11 22:15] LABS: Lactate 2HR (Lactic Acid Rflx) 2.4 mmol/L (0.7-2.1)
--- NOTE | 2022-09-11 22:30 | PC.NURSE ---
blood bag remaining volume at 22:30 when the rate change was 270mls not 55mls. SHELLIE Frey aware.
[2022-09-11] MEDS: HYDROMORPHONE 0.5 MG INJ IV (23:10)
[2022-09-12] VITALS (21 sets, daily range): BP systolic 127–161; BP diastolic 56–86; PULSE 85–104; RESP 16–24; TEMP 36.7–37.4; O2SAT 92–99; BMI 30.7
[2022-09-12 01:16] LABS: Bilirubin Conjugated 0.2 md/dL (0.0-0.3)
[2022-09-12 01:19] LABS: Lactate Dehydrogenase 352 U/L (120-246)
--- NOTE | 2022-09-12 01:34 | DI.US.S_ITS ---
PROCEDURE: US ABDOMEN LIMITED INDICATIONS: portal vein thrombus? TECHNIQUE: Real-time focused scanning was performed of the abdomen, with image documentation. Color and pulse Doppler interrogation was also performed on the area of interest. COMPARISON: [facility], US, US ABDOMEN LIMITED, 06/15/2021, 20:25. [facility], CT, CT ABDOMEN PELVIS W CON, 09/11/2022, 20:32. FINDINGS: Liver is small with a surface nodularity and coarsened echotexture, consistent with cirrhosis. Hepatopetal flow is seen in the main portal vein with minimal pulsatility. Visualized hepatic veins are patent. Hepatic artery is partially visualized with normal low resistance waveform. Gallbladder contains sludge without significant wall thickening. Sonographic [place] sign is negative. No intrahepatic or extrahepatic biliary ductal dilatation. Common bile duct measures 4.8 mm in diameter. Pancreas is not well visualized due to overlying bowel gas. A moderate to large amount of ascites is seen throughout the right upper quadrant. There is a right-sided pleural effusion. IMPRESSION: 1. Portal vein is patent with preserved hepatopetal flow. No portal venous thrombus is seen. 2. Hepatic cirrhosis with moderate to large volume of ascites. 3. Right pleural effusion is partially imaged. Approved by: Rupert Sterling M.D. on 09/12/2022 at 15:04
--- NOTE | 2022-09-12 01:34 | PATH_ITS ---
Note [facility] Accession Number: [id number] TESTS RESULT FLAG UNITS REF RANGE LAB Clinician Provided Cytology Information No. of containers..01 Other (Miscellaneous) Source: ABDOMINAL FLUID DIAGNOSIS: ABDOMINAL FLUID, PARACENTESIS. NEGATIVE FOR MALIGNANT CELLS. MESOTHELIAL CELLS ARE PRESENT. THIS INTERPRETATION INCLUDES EVALUATION OF A CELL BLOCK. Pathologist ICD10: R18.8 Signed out by: Neeraj Schulz MD, Pathologist NPI- [id number] Performed by: Reza Flores, Asthma Educator ([facility]) Gross description: 80 CC, YELLOW, HAZY RECEIVED: FRESH IN ORANGE CAP CONTAINER.VO /VDU 09/14/2022 07 Local FLAG LEGEND: L-Low Normal,H-High Normal,LL-Alert Low,HH-Alert High <-Panic Low,>-Panic High,A-Abnormal,AA-Critical Abnormal Performed at: 01 =Z [facility] [address] [place] [address] [address], [place] [address] Natan Camarillo MD, Performed at: [facility] [address], [place], [place] [id number] MD Natan Camarillo MD Phone: [phone]
[2022-09-12] MEDS: OXYCODONE IR 5 MG TABLET PO ×4 (02:10→21:00)
[2022-09-12 02:28] LABS: Folate 9.3 ng/mL (2.76-20.0); Vitamin B12 748 pg/mL (239-931)
[2022-09-12 05:04] LABS: INR 1.8 (0.9-1.3); Prothrombin Time 21.1 SECONDS (10.1-12.7)
[2022-09-12 05:06] LABS: Basophils Absolute Auto 0 /uL (0-100); Basophils Percent Auto 0.9 % (0-2); Eosinophils Absolute Auto 100 /uL (0-450); Eosinophils Percent Auto 1.5 % (2-4); Lymphocytes Absolute Auto 800 /uL (1100-4500); Lymphocytes Percent Auto 19.2 % (25-40); Mean Corpuscular HGB Conc 31.7 % (30-36); Mean Corpuscular Hemoglobin 23.7 PG (26-34); Monocytes Absolute Auto 500 /uL (0-900); Monocytes Percent Auto 10.8 % (3-14); Neutrophils Absolute Auto 2800 /uL (1500-7000); Neutrophils Percent Auto 67.6 % (50-75); Platelet Count 77 X10^3/uL (150-400); Red Cell Distribution Width 20.3 % (11.6-14.8); White Blood Cell Count 4.2 X10^3/uL (4.5-11.0)
[2022-09-12 05:12] LABS: Alanine Aminotransferase 21 IU/L (<35); Albumin 2.2 g/dL (3.5-5.0); Albumin Globulin Ratio 0.9 (1.0-2.8); Alkaline Phosphatase 65 U/L (38-126); Aspartate Aminotransferase 28 IU/L (14-36); BUN Creatinine Ratio 14.8 (6-22); Bilirubin Conjugated 0.3 md/dL (0.0-0.3); Bilirubin Total 5.2 mg/dL (0.2-1.3); Bilirubin Unconjugated 3.8 mg/dL (0.0-1.1); Blood Urea Nitrogen 16 mg/dL (7-17); Calcium 7.5 mg/dL (8.4-10.2); Carbon Dioxide 17 mmol/L (22-32); Chloride 108 mmol/L (98-107); Estimated Glomerular Filt Rate 56 mL/min (>60); Globulin 2.5 g/dL (1.7-4.1); Glucose 85 mg/dL (80-110); HEMOLYSIS < 15 (0-50); Potassium 4.1 mmol/L (3.4-5.1); Sodium 132 mmol/L (137-145); Total Protein 4.7 g/dL (6.3-8.2)
[2022-09-12 05:18] LABS: Hematocrit 20.3 % (36-46); Hemoglobin 6.4 g/dL (12.0-16.0)
[2022-09-12 05:19] LABS: Add Manual Diff / Slide Review SLIDE REVIEW; HEMOLYSIS < 15 (0-50); Iron 225 ug/dL (37-170)
[2022-09-12 05:22] LABS: Reticulocyte Count, Percent 3.8 % (1.1-2.6)
[2022-09-12 05:29] LABS: Percent Iron Saturation 46 % (15-50); Total Iron Binding Capacity 487 ug/dL (265-497); Transferrin 311 mg/dL (206-381)
[2022-09-12 07:09] LABS: Anisocytosis 2+; Poikilocytosis 1+
[2022-09-12] MEDS: PANTOPRAZOLE 40 MG VIAL IV ×2 (08:33→21:00)
--- NOTE | 2022-09-12 12:18 | PC.NURSE ---
patient has been NPO after breakfast
[2022-09-12] MEDS: BENZOCAINE/MENTHOL 1 LOZ PKT 1 EACH PO ×3 (12:23→21:26)
--- NOTE | 2022-09-12 14:58 | CM.DANOTE ---
Initial DCP Assessment Note Pt is a 67 yo female, resident of [facility] Hepatitic C cirrhosis who presents to the hospital with abdominal swelling and fatigue. She states she was diagnosed with hepatitis C nearly 40 years ago. Patient ordered for blood transfusion and admitted for further treatment. According to Dr Mars, patient is scheduled for a paracentesis today and may benefit from a scope by general surgery to assist in identifying etiology of severe anemia Attempted bedside assessment this morning and patient was fast asleep; according to RN, patient is indp and active at baseline. 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 Sister Shivani is her primary contact. PCP: Therese Loredo Payer: Sung HILLIARD No barriers identified at this time to patient's safe discharge home w/ close outpatient f/u recommended. CM team will plan to follow closely for needs JOMAR Smith Discharge Planning/Care Management CM Discharge Assessment Start: 09/12/22 14:38 Freq: Status: Active Protocol: Document 09/12/22 14:38 NORMA (Rec: 09/12/22 14:58 NORMA [id number]) Discharge Planning Assessment Assigned Passenger Brakeman JOMAR Edwards DPOA/Assigned Designee Name Shivani Jackson, sister ( [place]) Contact Information [phone] Advance Directives? No History Provided By Patient,Medical Record Prior Living Arrangements House Household Members none Type of transporation used prior to Drives own vehicle admit Independent with ADL's Yes Is patient alert and oriented? Yes Barriers to Discharge No Comment Expect return home w/close outpatient follow up recommended Discharge Plan Home Transportation Arrangement TBD Referrals Initiated None needed Additional Comment Following for any DC needs or concerns that may arise
[2022-09-12 15:46] LABS: Body Fluid Tot Nucleated Cells 58 /uL
[2022-09-12 15:48] LABS: Body Fluid Red Blood Cells 481 /uL
[2022-09-12 15:55] LABS: Body Fluid Appearance SLIGHTLY CLOUDY; Body Fluid Clotted? NO CLOTS PRESENT
[2022-09-12 16:11] LABS: Mononuclear WBC Body Fluid 98 %; Polynuclear WBC Body Fluid 2 %
[2022-09-12 16:16] LABS: Body Fluid Color YELLOW
[2022-09-12] MEDS: ALBUMIN HUMAN 50 GM/200 ML VIAL IV (16:24)
--- NOTE | 2022-09-12 18:37 | PM.PROC.1 ---
Procedures Date/Time Date of procedure: 09/12/22 Time of procedure: 14:45 General Procedure description: Paracentesis procedure note Prior to the procedure formal consent was obtained from the patient after discussion of risks and benefits of the procedure, and allowing the patient to ask any questions. Ultrasound was used to find a suitable pocket, and the site was marked. A time-out was performed. The site was then prepped and draped in usual sterile fashion, and a 16 gauge needle was inserted with return of clear yellow fluid. A total of approximately 6000 mL was obtained before drainage stopped. There was no bleeding and the patient tolerated the procedure well. There were no further complications. Patient was given 50 g of albumin IV.
[2022-09-13] VITALS (19 sets, daily range): BP systolic 116–146; BP diastolic 54–77; PULSE 83–113; RESP 14–20; TEMP 36.6–37.3; O2SAT 97–100; BMI 30.7
[2022-09-13 04:08] LABS: Haptoglobin 16 mg/dL (37-355)
--- NOTE | 2022-09-13 07:48 | P.PN_ITS ---
Subjective Subjective Interval history: Feels better since paracentesis yesterday. Less abdominal pressure. No chest pain or dyspnea. She denies hematemesis or blood per rectum ever. Exam Vital Signs (past 8 hours): - 09/13/22 00:00 09/13/22 01:00 09/13/22 04:00 Temperature 98.1 F 99.2 F Pulse Rate 113 H 98 H Respiratory Rate 18 19 Blood Pressure 118/64 131/54 L Pulse Oximetry 97 97 97 Oxygen Delivery Method Room Air Oxygen Flow Rate 0 09/13/22 05:00 Temperature Pulse Rate Respiratory Rate Blood Pressure Pulse Oximetry 97 Oxygen Delivery Method Room Air Oxygen Flow Rate 0 Oxygen Delivery Method Room Air Oxygen Flow Rate 0 Narrative Exam Narrative: GEN: no acute distress. Jaundiced. HEENT: moist mucous membranes, pale, icteric sclera NECK: trachea midline, no jvd CV: Regular, no murmurs PULM: clear bilaterally, no wheezes, rhonchi, rales ABD: soft, nontender, significantly distended, no rebound/guarding. Not tense. EXT: warm and well perfused, 2+ edema, anasarca NEURO: awake, alert, oriented, with normal cognition and speech. Objective Labs 09/13/22 07:55 09/13/22 07:55 Labs: Laboratory Results - last 24 hr 09/12/22 09/12/22 04:41 14:52 Haptoglobin 16 L Fluid Color Yellow Fluid Appearance Slightly cloudy Fluid RBC 481 Fld Tot Nucleated Cell 58 Fluid Polynuclear WBCs 2 Fluid Mononuclear WBCs 98 Fluid Eosinophils Not Reportable Fluid Other Cells Not Reportable Body Fluid Clot No clots present [facility] Surgical History Status post hysterectomy Status post tubal ligation Family History Brother Age: 73 High cholesterol Father Heart disease Social History household members: none Smoking Status: Never smoker alcohol intake: never Assessment & Plan Assessment & Plan narrative: 1. Decompensated Hepatitis C cirrhosis, present on admission and active -patient presented describing rapid accumulation of ascites (she has a multiyear history of ascites). She has been seen by Gastroenterology as scheduled [facility], but -describes decades of hepatitis C, states she has not had full treatment -states she has discussed Mavyret as possibility with her geophysical prospecting permit agent -MELD of 23, Child-Peoples Class C -large volume ascites on exam and confirmed with imaging status post paracentesis with approximately 4 L out on September 12. -INR 1.8 -ordere abdominal ultrasound with dopplers to eval for portal vein thrombus as explanation for rapid fluid retention -send hep c studies 2. Severe Anemia, along with pancytopenia. Present on admission and active. -hgb on presentation of 4.7 -suspect secondary to cirrhosis -MCV is low in the 70s -she denies noting any bleeding -EGD today -continue PPI, hemoglobin and hematocrit and needed. 3. ANA, present on admission and stable to improving. -suspect secondary to hypovolemia -will resuscitate with blood products -recheck creatinine daily I have discussed plan with the patient. I have discussed plan of care with ED physician and bedside nurse. I have reviewed labs, and CT imaging. CODE: Full Proxy: Shivani Manuel, sister Quality VTE Deep Vein Thrombosis/Pulmonary Embolism Present on Admission: Yes
[2022-09-13 08:11] LABS: Add Manual Diff / Slide Review NO; Basophils Absolute Auto 0 /uL (0-100); Basophils Percent Auto 0.4 % (0-2); Eosinophils Absolute Auto 100 /uL (0-450); Eosinophils Percent Auto 2.6 % (2-4); Hematocrit 19.9 % (36-46); Lymphocytes Absolute Auto 800 /uL (1100-4500); Lymphocytes Percent Auto 24.1 % (25-40); Mean Corpuscular HGB Conc 31.8 % (30-36); Mean Corpuscular Volume 75.6 fL (80-100); Monocytes Absolute Auto 300 /uL (0-900); Monocytes Percent Auto 9.4 % (3-14); Neutrophils Absolute Auto 2100 /uL (1500-7000); Neutrophils Percent Auto 63.5 % (50-75); Platelet Count 61 X10^3/uL (150-400); Red Blood Cell Count 2.63 X10^6/uL (4.0-5.2); Red Cell Distribution Width 19.9 % (11.6-14.8); White Blood Cell Count 3.4 X10^3/uL (4.5-11.0)
[2022-09-13 08:15] LABS: Hemoglobin 6.3 g/dL (12.0-16.0)
[2022-09-13 08:20] LABS: Alanine Aminotransferase 17 IU/L (<35); Albumin 2.2 g/dL (3.5-5.0); Alkaline Phosphatase 55 U/L (38-126); Aspartate Aminotransferase 29 IU/L (14-36); BUN Creatinine Ratio 14.4 (6-22); Bilirubin Total 2.4 mg/dL (0.2-1.3); Blood Urea Nitrogen 13 mg/dL (7-17); Calcium 7.5 mg/dL (8.4-10.2); Carbon Dioxide 19 mmol/L (22-32); Chloride 111 mmol/L (98-107); Estimated Glomerular Filt Rate > 60 mL/min (>60); Globulin 2.1 g/dL (1.7-4.1); Glucose 84 mg/dL (80-110); HEMOLYSIS < 15 (0-50); Sodium 133 mmol/L (137-145); Total Protein 4.3 g/dL (6.3-8.2)
[2022-09-13] MEDS: PANTOPRAZOLE 40 MG VIAL IV ×2 (08:37→21:59)
[2022-09-13] MEDS: OXYCODONE IR 5 MG TABLET PO ×2 (10:25→18:53)
--- NOTE | 2022-09-13 14:42 | PM.CN ---
History of Present Illness Consult details Date Patient Seen: 09/13/22 Time Patient Seen: 14:42 Chief complaint: Bloating, full of fluid per patient Reason for consult: Severe iron deficiency anemia Requesting provider: Donnie Mars Narrative: Fatigue is only symptom. Hgb around 4 on admission. No blood in stool or dark stools, no bloody emesis. Meds Home Medications and Allergies Home Medications Medication Instructions Recorded Confirmed Type spironolactone 25 mg tablet 25 mg PO DAILY 09/11/22 09/11/22 History Allergies Allergy/AdvReac Type Severity Reaction Status Date / Time erythromycin base Allergy Intermediate mouth Verified 09/13/22 14:26 thrush. Opioids - Morphine Analogues AdvReac Mild severe Verified 09/13/22 14:26 nausea and insomnia Review of Systems Review of Systems ROS: Yes All systems reviewed with the patient and are negative except as otherwise documented Exam Vital Signs (past 8 hours): - 09/13/22 08:52 09/13/22 10:10 09/13/22 10:27 Temperature 98.9 F 99 F 98 F Pulse Rate 94 H 92 H 92 H Respiratory Rate 18 20 18 Blood Pressure 131/54 L 131/56 L 130/60 Pulse Oximetry 98 Oxygen Delivery Method Oxygen Flow Rate 0 09/13/22 08:37 09/13/22 12:44 09/13/22 12:57 Temperature 98.5 F 98.5 F Pulse Rate 84 84 Respiratory Rate 18 18 Blood Pressure 125/58 L 125/58 L Pulse Oximetry 98 99 Oxygen Delivery Method Room Air Oxygen Flow Rate 0 Oxygen Delivery Method Room Air Oxygen Flow Rate 0 Const General: cooperative, healthy appearing and comfortable Nutritional Appearance: well nourished [facility] Head: normocephalic and atraumatic Ears: hearing grossly normal bilaterally Eyes General: appearance normal, both eyes and all related structures Neck Neck: normal visual inspection and trachea midline Resp Effort & Inspection: normal respiratory effort and able to speak in complete sentences Cardio Rate: regular rate Rhythm: regular rhythm GI Inspection: normal to inspection Palpation: soft Skin General: atrophy and ecchymosis Neuro General: patient alert, patient awake and patient oriented x3 Cognition: normal cognition Extrem General: muscle atrophy Right upper extremity: edema Left upper extremity: edema Psych Appearance: grossly normal Affect: normal affect Attitude: cooperative Judgment: judgment good Objective Labs 09/13/22 07:55 09/13/22 07:55 Labs: Laboratory Results - last 24 hr 09/11/22 09/12/22 09/12/22 19:49 04:41 14:52 WBC RBC Hgb Hct MCV MCH MCHC RDW Plt Count Neut % (Auto) Lymph % (Auto) [place] % (Auto) Eos % (Auto) Baso % (Auto) Neut # (Auto) Lymph # (Auto) [place] # (Auto) Eos # (Auto) Baso # (Auto) Haptoglobin 16 L Sodium Potassium Chloride Carbon Dioxide BUN Creatinine Estimated GFR BUN/Creatinine Ratio Glucose Calcium Total Bilirubin AST ALT Alkaline Phosphatase Total Protein Albumin Globulin Albumin/Globulin Ratio Fluid Color Yellow Fluid Appearance Slightly cloudy Fluid RBC 481 Fld Tot Nucleated Cell 58 Fluid Polynuclear WBCs 2 Fluid Mononuclear WBCs 98 Fluid Eosinophils Not Reportable Fluid Other Cells Not Reportable Body Fluid Clot No clots present Blood Type A Positive Antibody Screen Negative Crossmatch See Detail 09/13/22 09/13/22 07:55 07:55 WBC 3.4 L RBC 2.63 L Hgb 6.3 L* Hct 19.9 L* MCV 75.6 L MCH 24.0 L MCHC 31.8 RDW 19.9 H Plt Count 61 L Neut % (Auto) 63.5 Lymph % (Auto) 24.1 L [place] % (Auto) 9.4 Eos % (Auto) 2.6 Baso % (Auto) 0.4 Neut # (Auto) 2100 Lymph # (Auto) 800 L [place] # (Auto) 300 Eos # (Auto) 100 Baso # (Auto) 0 Haptoglobin Sodium 133 L Potassium 4.0 Chloride 111 H Carbon Dioxide 19 L BUN 13 Creatinine 0.90 Estimated GFR > 60 BUN/Creatinine Ratio 14.4 Glucose 84 Calcium 7.5 L Total Bilirubin 2.4 H AST 29 ALT 17 Alkaline Phosphatase 55 Total Protein 4.3 L Albumin 2.2 L Globulin 2.1 Albumin/Globulin Ratio 1.0 Fluid Color Fluid Appearance Fluid RBC Fld Tot Nucleated Cell Fluid Polynuclear WBCs Fluid Mononuclear WBCs Fluid Eosinophils Fluid Other Cells Body Fluid Clot Blood Type Antibody Screen Crossmatch [facility] Surgical History Status post hysterectomy Status post tubal ligation Family History Brother Age: 73 High cholesterol Father Heart disease Social History household members: none Tobacco & Substance Use Smoking Status: Never smoker alcohol intake: never Assessment & Plan Assessment & Plan narrative: Severe anemia, suspect GI source Plan: EGD Time Spent With Patient Time with patient: 30 to 49 minutes with 50% spent counseling/coordinating care Critical Care time: I spent a total of [] minutes of critical care time on this patient's care today; this time is exclusive of procedural time.
[2022-09-13] MEDS: LACTATED RINGERS 1,000 ML 42 ML IV (14:50)
--- NOTE | 2022-09-13 15:11 | PM.OP.EGD ---
Operative Date/Time/Diagnoses Date of procedure: 09/13/22 Time of procedure: 15:11 Pre-op diagnosis: anemia Post-op diagnosis: same Procedure & Clinicians Study performed: EGD Same procedure as scheduled: Yes Indications: Severe iron deficiency anemia Surgeon: Kenya Gifford Procedure Notes Procedure in detail: Preop diagnosis: Severe iron-deficiency anemia Postop diagnosis: Same Operative procedure: EGD with MAC Surgeon: Ramona Gifford MD Findings: Esophageal varices, large hiatal hernia, duodenal ulcer in a healing phase. No active bleeding Procedure: Patient placed in a supine position. Jaw lift was provided as scope was inserted into the esophagus and advanced into the stomach. I identified the pylorus intubated into duodenum. Insufflation extraction scope including a retroflex had the above findings. Impression: No active bleeding. Esophageal varices. Gastric varices. A healing duodenal ulcer. No biopsies taken due to INR of 1.8 and liver cirrhosis Plan: Recommend PPI for no less than 8 weeks b.i.d. to complete healing of the ulcer. May obtain H pylori serology to determine if antibiotics needed. Findings: duodenal ulcer, hiatal hernia and other findings (Esophageal and gastric varices) Specimen(s): none sent Complications: none Post-procedure Follow up: as needed Disposition: PACU
--- NOTE | 2022-09-13 15:23 | SUR.OPER ---
PATIENTS DENTURES AND RINGS PASSED OFF TO LIGHT BULB REPLACER IN GREEN DENTURE CUP.
[2022-09-14] VITALS (9 sets, daily range): BP systolic 123–147; BP diastolic 58–69; PULSE 84–104; RESP 16–19; TEMP 36.6–37.6; O2SAT 94–98
[2022-09-14 07:29] LABS: Add Manual Diff / Slide Review NO; Basophils Absolute Auto 0 /uL (0-100); Basophils Percent Auto 1.2 % (0-2); Eosinophils Absolute Auto 100 /uL (0-450); Eosinophils Percent Auto 2.5 % (2-4); Hematocrit 25.8 % (36-46); Hemoglobin 8.3 g/dL (12.0-16.0); Lymphocytes Absolute Auto 500 /uL (1100-4500); Mean Corpuscular HGB Conc 32.3 % (30-36); Mean Corpuscular Hemoglobin 25.1 PG (26-34); Mean Corpuscular Volume 77.8 fL (80-100); Monocytes Absolute Auto 300 /uL (0-900); Monocytes Percent Auto 9.9 % (3-14); Neutrophils Absolute Auto 2000 /uL (1500-7000); Neutrophils Percent Auto 69.4 % (50-75); Platelet Count 56 X10^3/uL (150-400); Red Blood Cell Count 3.32 X10^6/uL (4.0-5.2); Red Cell Distribution Width 20.8 % (11.6-14.8); White Blood Cell Count 2.9 X10^3/uL (4.5-11.0)
[2022-09-14 07:42] LABS: Alanine Aminotransferase 19 IU/L (<35); Albumin 2.2 g/dL (3.5-5.0); Alkaline Phosphatase 63 U/L (38-126); Aspartate Aminotransferase 35 IU/L (14-36); BUN Creatinine Ratio 12.5 (6-22); Bilirubin Total 2.6 mg/dL (0.2-1.3); Blood Urea Nitrogen 10 mg/dL (7-17); Calcium 7.4 mg/dL (8.4-10.2); Carbon Dioxide 20 mmol/L (22-32); Chloride 110 mmol/L (98-107); Estimated Glomerular Filt Rate > 60 mL/min (>60); Globulin 2.3 g/dL (1.7-4.1); Glucose 83 mg/dL (80-110); HEMOLYSIS < 15 (0-50); Potassium 4.1 mmol/L (3.4-5.1); Sodium 135 mmol/L (137-145); Total Protein 4.5 g/dL (6.3-8.2)
[2022-09-14 07:46] LABS: Anisocytosis 1+; Microcytosis 1+
[2022-09-14] MEDS: ONDANSETRON 4 MG/2 ML INJ IV (08:42)
[2022-09-14] MEDS: PANTOPRAZOLE 40 MG VIAL IV (08:42)
--- NOTE | 2022-09-14 11:18 | P.PN_ITS ---
Subjective Subjective Interval history: Nauseated and vomiting this AM (after EGD yest), no blood. Anorexia and w eakness. No abdomen pain. Exam Vital Signs (past 8 hours): - 09/14/22 04:00 09/14/22 04:00 09/14/22 09:23 Temperature 99.1 F 98.7 F Pulse Rate 97 H 93 H Respiratory Rate 16 18 Blood Pressure 131/58 L 138/69 Pulse Oximetry 96 94 97 Oxygen Delivery Method Room Air Oxygen Flow Rate 0 0 09/14/22 08:00 Temperature Pulse Rate Respiratory Rate Blood Pressure Pulse Oximetry 97 Oxygen Delivery Method Room Air Oxygen Flow Rate 0 Oxygen Delivery Method Room Air Oxygen Flow Rate 0 Narrative Exam Narrative: ? No acute distress, a little anxious.Jaundiced. Head is atraumatic.? Eyes are notable for symmetric pupils and icteric sclera. ? Neck is supple with normal range of motion, normal thyroid.? No adenopathy. ? Lungs are clear to auscultation with normal rate and effort. ? Heart is regular in rate and rhythm, with out murmur. ? Abdomen is soft, distended.? No focal tenderness, guarding or rebound. ? Extremities are with 2+ edema with good pedal pulses. ? Skin is free of rash, or lesions. ? Muscles with normal tone, joints are negative for deformity. ? Neurologically patient has normal cranial nerves and normal motor strength in all extremities Objective Labs 09/16/22 08:55 09/16/22 08:55 Labs: Laboratory Results - last 24 hr 09/14/22 09/14/22 07:09 07:09 WBC 2.9 L RBC 3.32 L Hgb 8.3 L Hct 25.8 L MCV 77.8 L MCH 25.1 L MCHC 32.3 RDW 20.8 H Plt Count 56 L Neut % (Auto) 69.4 Lymph % (Auto) 17.0 L [place] % (Auto) 9.9 Eos % (Auto) 2.5 Baso % (Auto) 1.2 Neut # (Auto) 2000 Lymph # (Auto) 500 L [place] # (Auto) 300 Eos # (Auto) 100 Baso # (Auto) 0 RBC Morphology See below Anisocytosis 1+ H Microcytosis 1+ H Sodium 135 L Potassium 4.1 Chloride 110 H Carbon Dioxide 20 L BUN 10 Creatinine 0.80 Estimated GFR > 60 BUN/Creatinine Ratio 12.5 Glucose 83 Calcium 7.4 L Total Bilirubin 2.6 H AST 35 ALT 19 Alkaline Phosphatase 63 Total Protein 4.5 L Albumin 2.2 L Globulin 2.3 Albumin/Globulin Ratio 1.0 PFSH Surgical History Status post hysterectomy Status post tubal ligation Family History Brother Age: 73 High cholesterol Father Heart disease Social History household members: none Smoking Status: Never smoker alcohol intake: never Assessment & Plan Assessment & Plan narrative: 1. Decompensated Hepatitis C cirrhosis, present on admission and active -patient presented describing rapid accumulation of ascites (she has a multiyear history of ascites).? She has been seen by Gastroenterology as scheduled [facility], but -describes decades of hepatitis C, states she has not had full treatment -states she has discussed Mavyret as possibility with her rn support services -MELD of 23, Child-Peoples Class C -large volume ascites on exam and confirmed with imaging status post paracentesis with approximately 4 L out on September 12. -INR 1.8 -ordere abdominal ultrasound with dopplers to eval for portal vein thrombus as explanation for rapid fluid retention -send hep c studies 2. Duodenal ulcer (not bleeding) and esophageal varices, present on admission and active. - cont PPI PO BID 2. Severe blood loss anemia, along with pancytopenia.? Present on admission and active. -MCV is low in the 70s (check iron stores) -she denies noting any bleeding -EGD 09/13 as above. -continue PPI, hemoglobin and hematocrit and needed. 3. ANA, present on admission and stable to improving. -suspect secondary to hypovolemia -will resuscitate with blood products -recheck creatinine daily Quality VTE Deep Vein Thrombosis/Pulmonary Embolism Present on Admission: Yes
[2022-09-14] MEDS: METOCLOPRAMIDE 10 MG/2 ML INJ IV (12:22)
[2022-09-14] MEDS: PANTOPRAZOLE DR 40 MG TABLET PO (21:02)
[2022-09-15] VITALS (10 sets, daily range): BP systolic 119–137; BP diastolic 52–66; PULSE 63–90; RESP 16–20; TEMP 36.3–37.2; O2SAT 93–100
[2022-09-15] MEDS: PANTOPRAZOLE DR 40 MG TABLET PO ×2 (06:52→20:31)
[2022-09-15 08:35] LABS: Basophils Absolute Auto 0 /uL (0-100); Basophils Percent Auto 1.3 % (0-2); Eosinophils Absolute Auto 100 /uL (0-450); Eosinophils Percent Auto 3.9 % (2-4); Hematocrit 25.5 % (36-46); Hemoglobin 8.1 g/dL (12.0-16.0); Lymphocytes Absolute Auto 500 /uL (1100-4500); Lymphocytes Percent Auto 23.1 % (25-40); Mean Corpuscular HGB Conc 31.9 % (30-36); Mean Corpuscular Hemoglobin 25.3 PG (26-34); Mean Corpuscular Volume 79.1 fL (80-100); Monocytes Absolute Auto 200 /uL (0-900); Monocytes Percent Auto 9.2 % (3-14); Neutrophils Absolute Auto 1500 /uL (1500-7000); Neutrophils Percent Auto 62.5 % (50-75); Platelet Count 49 X10^3/uL (150-400); Red Blood Cell Count 3.22 X10^6/uL (4.0-5.2); Red Cell Distribution Width 21.6 % (11.6-14.8); White Blood Cell Count 2.3 X10^3/uL (4.5-11.0)
[2022-09-15 08:36] LABS: Add Manual Diff / Slide Review SLIDE REVIEW
[2022-09-15 08:50] LABS: Alanine Aminotransferase 20 IU/L (<35); Albumin 2.2 g/dL (3.5-5.0); Alkaline Phosphatase 62 U/L (38-126); Aspartate Aminotransferase 31 IU/L (14-36); BUN Creatinine Ratio 13.3 (6-22); Blood Urea Nitrogen 10 mg/dL (7-17); Carbon Dioxide 21 mmol/L (22-32); Chloride 107 mmol/L (98-107); Estimated Glomerular Filt Rate > 60 mL/min (>60); Globulin 2.3 g/dL (1.7-4.1); Glucose 167 mg/dL (80-110); HEMOLYSIS < 15 (0-50); Potassium 4.1 mmol/L (3.4-5.1); Sodium 133 mmol/L (137-145); Total Protein 4.5 g/dL (6.3-8.2)
[2022-09-15 09:13] LABS: Anisocytosis 2+
[2022-09-15 09:14] LABS: Platelet Estimate Decreased on smear; Poikilocytosis 1+
[2022-09-15] MEDS: OXYCODONE IR 5 MG TABLET PO ×3 (11:46→23:43)
[2022-09-15] MEDS: TORSEMIDE 10 MG TABLET PO (12:39)
[2022-09-15] MEDS: SPIRONOLACTONE 25 MG TABLET PO (12:39)
--- NOTE | 2022-09-15 13:15 | CM.DPNOTE ---
Addendum entered by Karly Rikki, JOMAR 09/15/22 14:32: ADD: According to RN, patient not discharging today. New meds today- Torsemide, Spironolactone, Inderal. 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 In addition, patient's sister and VELVET are city assessor in [place] and will be checking in w.patient Patient is in the process of transferring her care to [facility] in [place] plan: discharge home today, no needs from this CM team, close outpatient follow up NORMA
[2022-09-15] MEDS: PROPRANOLOL 10 MG TABLET PO ×2 (15:01→20:31)
--- NOTE | 2022-09-15 16:39 | PM.PN.1 ---
Subjective Subjective Interval history: Worried about her LE edema, abdomen is a bit more distended but denies pain or dyspnea. started on diuretics today along with propranolol for her ascites and varices. Exam Vital Signs (past 8 hours): - 09/15/22 12:00 09/15/22 12:31 09/15/22 16:00 Temperature 98.9 F Pulse Rate 90 Respiratory Rate 20 Blood Pressure 132/64 Pulse Oximetry 98 97 97 Oxygen Delivery Method Room Air Room Air Oxygen Flow Rate 0 Oxygen Delivery Method Room Air Oxygen Flow Rate 0 Narrative Exam Narrative: GEN: no acute distress. HEENT: moist mucous membranes, pale, icteric sclera NECK: trachea midline, no jvd CV: Regular, no murmurs PULM: clear bilaterally, no wheezes, rhonchi, rales ABD: soft, nontender, significantly distended, no rebound/guarding. Not tense. EXT: warm and well perfused, 2+ edema, anasarca NEURO: awake, alert, oriented, with normal cognition and speech. Objective Labs 09/15/22 08:25 09/15/22 08:25 Labs: Laboratory Results - last 24 hr 09/15/22 09/15/22 08:25 08:25 WBC 2.3 L RBC 3.22 L Hgb 8.1 L Hct 25.5 L MCV 79.1 L MCH 25.3 L MCHC 31.9 RDW 21.6 H Plt Count 49 L Neut % (Auto) 62.5 Lymph % (Auto) 23.1 L [place] % (Auto) 9.2 Eos % (Auto) 3.9 Baso % (Auto) 1.3 Neut # (Auto) 1500 Lymph # (Auto) 500 L [place] # (Auto) 200 Eos # (Auto) 100 Baso # (Auto) 0 Platelet Estimate Decreased on smear RBC Morphology See below Poikilocytosis 1+ H Anisocytosis 2+ H Sodium 133 L Potassium 4.1 Chloride 107 Carbon Dioxide 21 L BUN 10 Creatinine 0.75 Estimated GFR > 60 BUN/Creatinine Ratio 13.3 Glucose 167 H Calcium 7.0 L Total Bilirubin 2.0 H AST 31 ALT 20 Alkaline Phosphatase 62 Total Protein 4.5 L Albumin 2.2 L Globulin 2.3 Albumin/Globulin Ratio 1.0 PFSH Surgical History Status post hysterectomy Status post tubal ligation Family History Brother Age: 73 High cholesterol Father Heart disease Social History household members: none Smoking Status: Never smoker alcohol intake: never Assessment & Plan Assessment & Plan narrative: 1. Decompensated Hepatitis C cirrhosis, present on admission and active -patient presented describing rapid accumulation of ascites (she has a multiyear history of ascites). She has been seen by Gastroenterology at [facility]. -describes decades of hepatitis C, states she has not had full treatment -states she has discussed Mavyret as possibility with her milk receiver -MELD of 23, Child-Peoples Class C -large volume ascites on exam and confirmed with imaging status post paracentesis with approximately 4 L out on September 12. -INR 1.8 -ordere abdominal ultrasound with dopplers to eval for portal vein thrombus as explanation for rapid fluid retention, which was negative for PVT -f/u hep C studies, pending quant -started on diuretics with torsemide and aldactone (patient reports furosemide with no effect previously) today, also started on propranolol with EVs seen on EGD yesterday. 2. Severe Anemia, due to duodenal ulcer along with pancytopenia. Present on admission and active. -hgb on presentation of 4.7 improved to 8.3 with transfusion, silght downtrend to 8.1. Continue to trend. -continue PPI -appreciate endoscopy by general surgery. 3. ANA, present on admission and improved. -suspect secondary to hypovolemia -will resuscitate with blood products -continue to follow I have discussed plan with the patient. Review previous documentation and lab evaluation. CODE: Full Proxy: Shivani Jackson, sister Time Spent With Patient Critical Care time: I spent a total of [] minutes of critical care time on this patient's care today; this time is exclusive of procedural time. Quality VTE Deep Vein Thrombosis/Pulmonary Embolism Present on Admission: Yes
--- NOTE | 2022-09-15 19:57 | PC.NURSE ---
[facility] Pt has no IV access, Report from [facility] RN verbal orders for No IV access by Dr. Lagos
[2022-09-15] MEDS: BENZOCAINE/MENTHOL 1 LOZ PKT 1 EACH PO (20:32)
[2022-09-16] VITALS: O2SAT 96
[2022-09-16 04:00] VITALS: O2SAT 96
[2022-09-16] MEDS: PANTOPRAZOLE DR 40 MG TABLET PO ×2 (06:04→13:42)
[2022-09-16 08:00] VITALS: BP 134/64; PULSE 64; RESP 18; TEMP 36.9; O2SAT 100
[2022-09-16] MEDS: SPIRONOLACTONE 25 MG TABLET PO (08:53)
[2022-09-16] MEDS: TORSEMIDE 10 MG TABLET PO ×2 (08:53→13:42)
[2022-09-16] MEDS: PROPRANOLOL 10 MG TABLET PO ×2 (08:53→13:42)
[2022-09-16 09:10] LABS: Add Manual Diff / Slide Review NO; Basophils Absolute Auto 0 /uL (0-100); Basophils Percent Auto 1.1 % (0-2); Eosinophils Absolute Auto 200 /uL (0-450); Eosinophils Percent Auto 6.9 % (2-4); Hematocrit 28.1 % (36-46); Hemoglobin 8.9 g/dL (12.0-16.0); Lymphocytes Absolute Auto 500 /uL (1100-4500); Lymphocytes Percent Auto 17.9 % (25-40); Mean Corpuscular HGB Conc 31.7 % (30-36); Mean Corpuscular Hemoglobin 25.2 PG (26-34); Mean Corpuscular Volume 79.4 fL (80-100); Monocytes Absolute Auto 300 /uL (0-900); Monocytes Percent Auto 11.4 % (3-14); Neutrophils Absolute Auto 1800 /uL (1500-7000); Neutrophils Percent Auto 62.7 % (50-75); Platelet Count 60 X10^3/uL (150-400); Red Blood Cell Count 3.54 X10^6/uL (4.0-5.2); Red Cell Distribution Width 22.8 % (11.6-14.8); White Blood Cell Count 2.8 X10^3/uL (4.5-11.0)
[2022-09-16 09:21] LABS: Alanine Aminotransferase 21 IU/L (<35); Albumin 2.2 g/dL (3.5-5.0); Albumin Globulin Ratio 0.9 (1.0-2.8); Alkaline Phosphatase 50 U/L (38-126); Aspartate Aminotransferase 32 IU/L (14-36); Blood Urea Nitrogen 12 mg/dL (7-17); Calcium 7.1 mg/dL (8.4-10.2); Carbon Dioxide 20 mmol/L (22-32); Chloride 109 mmol/L (98-107); Estimated Glomerular Filt Rate > 60 mL/min (>60); Globulin 2.5 g/dL (1.7-4.1); Glucose 156 mg/dL (80-110); HEMOLYSIS < 15 (0-50); Potassium 4.3 mmol/L (3.4-5.1); Sodium 133 mmol/L (137-145); Total Protein 4.7 g/dL (6.3-8.2)
[2022-09-16 09:33] LABS: Anisocytosis 2+
[2022-09-16 09:34] LABS: Poikilocytosis 1+
--- NOTE | 2022-09-16 10:38 | PM.DS.1 ---
History of Present Illness History of Present Illness Date Patient Seen: 09/16/22 Time Patient Seen: 10:38 Chief complaint: Bloating, full of fluid per patient Narrative: Per admitting provider, Ms. Leonard is a 67W with H Hepatitic C cirrhosis who presents to the hospital with abdominal swelling and fatigue. She states she was diagnosed with hepatitis C nearly 40 years ago, she was treated years ago with medications, she is not sure what, but doubt it was any of the new antivirals. She has discussed Mavyret with her cone picker, but she states that her physicial did not recommend being treated with this medication. She is on spironolactone at baseline. She states she was fine for a long time. She did present to the hospital May of 2021 for ascites and did get a paracentesis. She states that this was traumatic for her, she distrusts doctors and did not want to return to see any physician. She says her abdominal swelling had been absent until only in the last few days she has noted diffuse swelling in her extremities and abdomen. She has felt fatigued. No dizziness, lightheadedness. No vomiting blood, no dark stools, hematochezia. No colonoscopy or EGD. In the ED workup was done, vitals notable for afebrile, heart rate 80s-100s, blood pressure 140s/60s. Labs notable for WBC 4.4, hgb 4.7, plts 119. MCV 71. INR 1.8. Creatinine 1.14. Bili 3.1, AST/ALT 52/24. Albumin 2.5. Lactate 2.5. CT abdomen showed large ascites, cirrhotic liver without definite mass, varices, small bilateral pleural effusions. She was ordered for blood transfusion and admitted for further treatment. Discharge Providers Provider Date of admission: 09/11/22 23:56 Discharge Date: 09/16/22 Primary care physician: Therese Loredo PA-C Consults: 09/12/22 18:41 Consult to General Surgery Routine Comment: Consulting Provider: Kenya Gifford Reason for consultation: rule out UBIG with Hgb of 4.7 with EGD Discharge provider: Geoffrey Lagos DO Summary Hospital Course Discharge Diagnosis: 1. Decompensated Hepatitis C cirrhosis, present on admission and active 2. Severe acute blood loss Anemia, due to duodenal ulcer along with pancytopenia.? Present on admission and active. 3. ANA, present on admission and improved. Hospital Course: This is a 67 year old female with PMH of Hep C cirrhosis who was admitted with decompensated cirrhosis. She underwent large volume paracentesis, with removal of approximately 4L. Studies were negative for SBP. Ultrasound was obtained to rule out PVT which was negative. Hepatitis C quantative studies are pending at the time of discharge. She was also noted to be quite anemic with a presenting Hg of 4.7 likely causing a bump in her creatinine and ANA. She improved with transfusion to a Hg 8.3 and had no signs or symptoms of active bleeding after transfusion, and hg remained between 8-9 the remainder of her admission. EGD was performed which showed varices and a duodenal ulcer. PPI was continued at the time of discharge at 40 mg BID. She was also started on propranolol for her varices. She continued to have LE edema and ascites. Previously patient reported that furosemide was ineffective for her so torsemide and aldactone were initiated here as well with continued diuresis. She should stay on these until follow up with her cone picker as an outpatient. Time Spent with Patient Time spent: Greater than 30 minutes Exam Vital Signs (past 8 hours): - 09/16/22 04:00 09/16/22 08:00 Temperature 98.4 F Pulse Rate 64 Respiratory Rate 18 Blood Pressure 134/64 Pulse Oximetry 96 100 Oxygen Delivery Method Room Air Oxygen Flow Rate 0 Oxygen Delivery Method Room Air Oxygen Flow Rate 0 Narrative Exam Narrative: GEN: no acute distress. HEENT: moist mucous membranes, pale, icteric sclera NECK: trachea midline, no jvd CV: Regular, no murmurs PULM: clear bilaterally, no wheezes, rhonchi, rales ABD: soft, nontender, significantly distended, no rebound/guarding. Not tense. EXT: warm and well perfused, 2+ edema NEURO: awake, alert, oriented, with normal cognition and speech. Objective Labs 09/16/22 08:55 09/16/22 08:55 Labs: Laboratory Results - last 24 hr 09/16/22 09/16/22 08:55 08:55 WBC 2.8 L RBC 3.54 L Hgb 8.9 L Hct 28.1 L MCV 79.4 L MCH 25.2 L MCHC 31.7 RDW 22.8 H Plt Count 60 L Neut % (Auto) 62.7 Lymph % (Auto) 17.9 L [place] % (Auto) 11.4 Eos % (Auto) 6.9 H Baso % (Auto) 1.1 Neut # (Auto) 1800 Lymph # (Auto) 500 L [place] # (Auto) 300 Eos # (Auto) 200 Baso # (Auto) 0 RBC Morphology See below Poikilocytosis 1+ H Anisocytosis 2+ H Sodium 133 L Potassium 4.3 Chloride 109 H Carbon Dioxide 20 L BUN 12 Creatinine 0.86 Estimated GFR > 60 BUN/Creatinine Ratio 14.0 Glucose 156 H Calcium 7.1 L Total Bilirubin 3.0 H AST 32 ALT 21 Alkaline Phosphatase 50 Total Protein 4.7 L Albumin 2.2 L Globulin 2.5 Albumin/Globulin Ratio 0.9 L PFSH Surgical History Status post hysterectomy Status post tubal ligation Family History Brother Age: 73 High cholesterol Father Heart disease Social History household members: none Smoking Status: Never smoker alcohol intake: never Discharge Plan Discharge Plan Patient Disposition: Home Provider Discharge Comment: You were admitted to the hospital with anemia, found to have an ulcer in your small intestine. Improved with acid reducing medications which will continue. Medications prescribed as well on discharge to remove a bit more fluid. If your SBP (top #) is less than 100 reduce torsemide to 10 mg, or reduce dosing if your lower leg swelling goes away. Please follow up with your primary care provider and GI physician as soon as possible after discharge to review hospitalization and medication adjustments. Discharge orders & Medications Prescriptions: New propranolol 10 mg Tablet 10 mg PO TID 30 Days Qty: 90 0RF pantoprazole 40 mg Tablet,Delayed Release (Dr/Ec) 40 mg PO 0700,2100 30 Days Qty: 60 0RF torsemide 20 mg tablet 20 mg PO DAILY 30 Days Qty: 30 0RF (DME) blood pressure monitor Kit See Rx Instructions .Route Qty: 1 0RF Rx Instructions: One BP monitor for home monitoring Continued spironolactone 25 mg tablet 25 mg PO DAILY 30 Days Qty: 30 0RF Follow up/Referrals: Therese Loredo PA-C [Primary Care Provider] - Diet/Activity/Treatments Diet: Diet as Tolerated Activity: As tolerated Visit Report/Discharge Packet Stand Alone Forms: Patient Portal/API, Stroke Signs & Symptoms Discharge Data Primary Care Provider: Therese Loredo Quality VTE Deep Vein Thrombosis/Pulmonary Embolism Present on Admission: Yes
--- NOTE | 2022-09-16 11:40 | CM.DPC ---
DCP Discharge Home Per MD, pt is medically stable to d/c home today after repeat blood work and no identified barriers to discharge. Pt back to baseline independence and has local supportive friends. Plan: Patient to d/c home today via POV and outpt follow up and no further SW needs at this time. JOMAR Zarate
[2022-09-16 12:25] VITALS: BP 138/68; PULSE 69; RESP 17; TEMP 36.7; O2SAT 100
[2022-09-17 15:44] LABS: HCV Genotype 3 (.); HCV LOG 10 4.966 (.)
== END 2022-09-16 13:46 | disposition home or self-care (01) | DRG 441 ==
LOC: ED 20:04 → AC 23:57
PROVIDERS: Emergency Medicine; Internal Medicine; Surgery; Admitting Provider Internal Medicine; Emergency Provider Emergency Medicine; PCP Student in an Organized Health Care Education/Training Program; Referring Provider Emergency Medicine; Visit Provider Internal Medicine
PROC: 0DJ08ZZ Inspection of Upper Intestinal Tract, Via Natural or Artificial Opening Endoscopic (ICD-10-PCS; CPT 43235; principal; 2022-09-13 15:15)
DX: B17.10 Acute hepatitis C without hepatic coma (principal); K26.4 Chronic or unspecified duodenal ulcer with hemorrhage; D61.818 Other pancytopenia; N17.9 Acute kidney failure, unspecified; D62 Acute posthemorrhagic anemia; I85.00 Esophageal varices without bleeding; K74.60 Unspecified cirrhosis of liver; I86.4 Gastric varices; Z20.822 Contact with and (suspected) exposure to COVID-19
CPT/HCPCS: 36415; 36430; 43235; 74177; 76705; 80048; 80053; 80076; 82248; 82607; 82746; 83010; 83540; 83550; 83605; 83615; 83690; 85025; 85045; 85610; 85730; 86850; 86900; 86901; 87070; 87075; 87205; 87522; 87635; 89051; 93005; 93010; 93975; 93976; 96374; 96375; 99232; 99284; 99285; C9803; P9016; C9113; J1170; J2270; J2274; J2405; J2590; J2704; J2765; J3010; P9041; Q9967

== ENCOUNTER → 2022-10-05 10:29 | Outpatient (CLI) | payer OTHER, SELFPAY ==
[2022-09-12 00:40] VITALS: BMI 30.7
[2022-10-05 12:07] LABS: Add Manual Diff / Slide Review NO; Basophils Absolute Auto 0 /uL (0-100); Basophils Percent Auto 1.1 % (0-2); Eosinophils Absolute Auto 100 /uL (0-450); Eosinophils Percent Auto 2.3 % (2-4); Hematocrit 24.9 % (36-46); Hemoglobin 8.4 g/dL (12.0-16.0); Lymphocytes Absolute Auto 700 /uL (1100-4500); Mean Corpuscular HGB Conc 33.6 % (30-36); Mean Corpuscular Hemoglobin 27.6 PG (26-34); Mean Corpuscular Volume 82.4 fL (80-100); Monocytes Absolute Auto 300 /uL (0-900); Neutrophils Absolute Auto 1600 /uL (1500-7000); Neutrophils Percent Auto 60.6 % (50-75); Platelet Count 80 X10^3/uL (150-400); Red Blood Cell Count 3.02 X10^6/uL (4.0-5.2); Red Cell Distribution Width 29.3 % (11.6-14.8); White Blood Cell Count 2.7 X10^3/uL (4.5-11.0)
[2022-10-05 12:13] LABS: INR 1.5 (0.9-1.3); Prothrombin Time 17.2 SECONDS (10.1-12.7)
[2022-10-05 12:37] LABS: Alanine Aminotransferase 28 IU/L (<35); Albumin 2.3 g/dL (3.5-5.0); Albumin Globulin Ratio 0.9 (1.0-2.8); Alkaline Phosphatase 87 U/L (38-126); Aspartate Aminotransferase 62 IU/L (14-36); BUN Creatinine Ratio 21.9 (6-22); Bilirubin Total 2.4 mg/dL (0.2-1.3); Blood Urea Nitrogen 16 mg/dL (7-17); Calcium 7.6 mg/dL (8.4-10.2); Carbon Dioxide 26 mmol/L (22-32); Chloride 105 mmol/L (98-107); Cholesterol 95 mg/dL (140-199); Estimated Glomerular Filt Rate > 60 mL/min (>60); Globulin 2.7 g/dL (1.7-4.1); Glucose 88 mg/dL (80-110); HDL Cholesterol 20 mg/dL (40-60); HEMOLYSIS < 15 (0-50); LDL Cholesterol Calculated 58 mg/dL (<100); Potassium 3.6 mmol/L (3.4-5.1); Sodium 135 mmol/L (137-145); Triglycerides 84 mg/dL (35-150)
[2022-10-05 13:06] LABS: Anisocytosis 2+; Ovalocytes 1+
== END ==
PROVIDERS: PCP Student in an Organized Health Care Education/Training Program; Referring Provider Nurse Practitioner Family; Visit Provider Nurse Practitioner Family
DX: E87.1 Hypo-osmolality and hyponatremia (principal); Z13.220 Encounter for screening for lipoid disorders; D64.9 Anemia, unspecified
CPT/HCPCS: 36415; 80053; 80061; 85025; 85610

== ENCOUNTER → 2022-11-06 12:51 | Outpatient (CLI) | payer OTHER, SELFPAY ==
[2022-09-12 00:40] VITALS: BMI 30.7
[2022-11-06 14:22] LABS: INR 1.5 (0.9-1.3); Prothrombin Time 17.7 SECONDS (10.1-12.7)
[2022-11-06 14:24] LABS: PTT Partial Thromboplastin Tim 34 SECONDS (26-36)
[2022-11-06 14:33] LABS: Alanine Aminotransferase 20 IU/L (<35); Albumin 2.2 g/dL (3.5-5.0); Albumin Globulin Ratio 0.8 (1.0-2.8); Alkaline Phosphatase 82 U/L (38-126); Aspartate Aminotransferase 43 IU/L (14-36); BUN Creatinine Ratio 15.9 (6-22); Bilirubin Total 2.1 mg/dL (0.2-1.3); Blood Urea Nitrogen 13 mg/dL (7-17); Calcium 7.4 mg/dL (8.4-10.2); Carbon Dioxide 26 mmol/L (22-32); Chloride 107 mmol/L (98-107); Cholesterol 97 mg/dL (140-199); Estimated Glomerular Filt Rate > 60 mL/min (>60); Globulin 2.7 g/dL (1.7-4.1); Glucose 144 mg/dL (80-110); HDL Cholesterol 21 mg/dL (40-60); HEMOLYSIS < 15 (0-50); LDL Cholesterol Calculated 56 mg/dL (<100); Potassium 3.4 mmol/L (3.4-5.1); Sodium 136 mmol/L (137-145); Total Protein 4.9 g/dL (6.3-8.2); Triglycerides 99 mg/dL (35-150)
[2022-11-06 21:06] LABS: Hepatitis B Surface Antigen NEGATIVE s/c (NEGATIVE)
[2022-11-06 21:13] LABS: HIV 1 & 2 Ab/Ag 4th Gen Combo NEGATIVE (NEGATIVE)
[2022-11-08 14:58] LABS: Hepatitis Be Antibody Negative (Negative)
[2022-11-10 18:36] LABS: HCV Genotype 3 (.); HCV LOG 10 5.669 (.)
[2022-11-15 17:36] LABS: HLA B27 Negative (.)
== END ==
PROVIDERS: PCP Nurse Practitioner Family; Referring Provider Nurse Practitioner Family; Visit Provider Nurse Practitioner Family
DX: B18.2 Chronic viral hepatitis C (principal); M54.50 Low back pain, unspecified; R18.8 Other ascites; Z13.220 Encounter for screening for lipoid disorders; Z13.1 Encounter for screening for diabetes mellitus
CPT/HCPCS: 36415; 80053; 80061; 81374; 85610; 85730; 86707; 87340; 87389; 87522

== ENCOUNTER → 2022-11-07 09:53 | Outpatient (CLI) | payer OTHER, SELFPAY ==
[2022-09-12 00:40] VITALS: BMI 30.7
--- NOTE | 2022-11-07 | DI.US.S_ITS ---
PROCEDURE: US PARACENTESIS INDICATIONS: THERAPEUTIC PARACENTESIS - ASCITES TECHNIQUE: The indications, alternatives, benefits, risks, and complications of the procedure were explained to the patient. Written informed consent was obtained and placed in the chart. The abdomen and pelvis were examined sonographically, and an appropriate site was chosen for paracentesis. The skin was prepared and draped in the usual sterile fashion, and 1% lidocaine was infiltrated from the skin down through the peritoneal surface. A 19-gauge catheter-covered needle was then introduced into the peritoneal space, the catheter was advanced and the needle was withdrawn, and thereafter peritoneal fluid was withdrawn. The catheter was then removed and a dressing was applied. The fluid was discarded if the clinician did not order diagnostic testing of the fluid. COMPARISON: None. FINDINGS: Access site: Right lower quadrant Needle: One-Step centesis catheter with introducer needle. Fluid volume and description: 5L clear, yellow fluid. Fluid sent for diagnostic testing: None. Medications: 1% lidocaine for local anaesthesia. Complications: None. IMPRESSION: Successful ultrasound-guided paracentesis. Dictated by: Larry Adams M.D. on 11/07/2022 at 12:21 Approved by: Larry Adams M.D. on 11/07/2022 at 12:22
--- NOTE | 2022-11-07 09:56 | DI.RAD.S_ITS ---
PROCEDURE: XR THORACIC SPINE 2V INDICATIONS: back pain TECHNIQUE: 3 views of the thoracic spine were acquired. COMPARISON: None. FINDINGS: Bones: No fractures or dislocations. No suspicious bony lesions. 12 pairs of ribs are noted, and appear intact where visualized. Scattered areas of disc space narrowing are noted within the thoracic spine. Minimal paravertebral osteophytes. Soft tissues: No paravertebral stripe thickening. IMPRESSION: Scattered areas of degenerative disc space narrowing and osteophytes. Dictated by: Fabby Lee M.D. on 11/07/2022 at 20:52 Approved by: Fabby Lee M.D. on 11/07/2022 at 20:53
--- NOTE | 2022-11-07 09:56 | DI.RAD.S_ITS ---
PROCEDURE: XR LUMBAR SPINE 2-3V INDICATIONS: back pain TECHNIQUE: 3 views of the lumbar spine were acquired. COMPARISON: [facility] HODAN Wilcox, XR LUMBAR SPINE FLEXION EXTENSION, 11/07/2018, 14:19. FINDINGS: Bones: 5 [id number] vertebrae are present. There is trace retrolisthesis of L4 on L5. Moderate to severe disc and foraminal narrowing are present most notable at L5-S1. [id number] foraminal narrowing is present at L5-S1. No vertebral body compression fractures. No suspicious bony lesions. Soft tissues: Overlying bowel gas pattern is normal. No suspicious soft tissue calcifications. IMPRESSION: Degenerative changes most notable at L5-S1. Overall appearance is minimally progressive compared to prior exam. Dictated by: Fabby Lee M.D. on 11/07/2022 at 20:51 Approved by: Fabby Lee M.D. on 11/07/2022 at 20:52
== END ==
PROVIDERS: PCP Nurse Practitioner Family; Referring Provider Nurse Practitioner Family; Visit Provider Nurse Practitioner Family
DX: R18.8 Other ascites (principal); M54.50 Low back pain, unspecified; M47.817 Spondylosis without myelopathy or radiculopathy, lumbosacral region; M48.04 Spinal stenosis, thoracic region
CPT/HCPCS: 49083; 72070; 72100

== ENCOUNTER → 2022-11-12 13:53 | Outpatient (CLI) | payer OTHER, SELFPAY ==
[2022-09-12 00:40] VITALS: BMI 30.7
--- NOTE | 2022-11-12 13:57 | DI.US.S_ITS ---
PROCEDURE: US PARACENTESIS INDICATIONS: ASCITES TECHNIQUE: The indications, alternatives, benefits, risks, and complications of the procedure were explained to the patient. Written informed consent was obtained and placed in the chart. The abdomen and pelvis were examined sonographically, and an appropriate site was chosen for paracentesis. The skin was prepared and draped in the usual sterile fashion, and 1% lidocaine was infiltrated from the skin down through the peritoneal surface. A 19-gauge catheter-covered needle was then introduced into the peritoneal space, the catheter was advanced and the needle was withdrawn, and thereafter peritoneal fluid was withdrawn. The catheter was then removed and a dressing was applied. The fluid was discarded if the clinician did not order diagnostic testing of the fluid. COMPARISON: [facility], PARACENTESIS, 11/07/2022, 10:21. FINDINGS: Access site: Right lateral abdomen Needle: One-Step centesis catheter with introducer needle. Fluid volume and description: 5 liters of yellow, clear fluid Fluid sent for diagnostic testing: None Medications: 1% lidocaine for local anaesthesia. Complications: None. IMPRESSION: Successful ultrasound-guided paracentesis. Dictated by: Larry Adams M.D. on 11/12/2022 at 15:47 Approved by: Larry Adams M.D. on 11/12/2022 at 15:48
[2022-11-12 14:51] LABS: INR 1.4 (0.9-1.3); Prothrombin Time 16.1 SECONDS (10.1-12.7)
[2022-11-12 14:53] LABS: PTT Partial Thromboplastin Tim 33 SECONDS (26-36)
[2022-11-12 15:03] LABS: Alanine Aminotransferase 20 IU/L (<35); Albumin 1.9 g/dL (3.5-5.0); Albumin Globulin Ratio 0.8 (1.0-2.8); Alkaline Phosphatase 70 U/L (38-126); Aspartate Aminotransferase 39 IU/L (14-36); BUN Creatinine Ratio 15.2 (6-22); Blood Urea Nitrogen 14 mg/dL (7-17); Calcium 7.2 mg/dL (8.4-10.2); Carbon Dioxide 24 mmol/L (22-32); Chloride 104 mmol/L (98-107); Cholesterol 92 mg/dL (140-199); Estimated Glomerular Filt Rate > 60 mL/min (>60); Globulin 2.5 g/dL (1.7-4.1); Glucose 155 mg/dL (80-110); HDL Cholesterol 18 mg/dL (40-60); HEMOLYSIS < 15 (0-50); LDL Cholesterol Calculated 59 mg/dL (<100); Potassium 3.7 mmol/L (3.4-5.1); Sodium 131 mmol/L (137-145); Total Protein 4.4 g/dL (6.3-8.2); Triglycerides 77 mg/dL (35-150)
[2022-11-12 15:52] LABS: Hepatitis B Surface Antigen NEGATIVE s/c (NEGATIVE)
[2022-11-12 16:01] LABS: HIV 1 & 2 Ab/Ag 4th Gen Combo NEGATIVE (NEGATIVE)
[2022-11-13 05:29] LABS: Hepatitis B Surf AB Quant <3.1 mIU/mL (Immunity>9.9)
[2022-11-16 18:26] LABS: HLA B27 Negative (.)
[2022-11-16 20:16] LABS: HCV Genotype 3 (.); HCV LOG 10 4.888 (.)
== END ==
PROVIDERS: PCP Nurse Practitioner Family; Referring Provider Nurse Practitioner Family; Visit Provider Nurse Practitioner Family
DX: R18.8 Other ascites (principal); B18.2 Chronic viral hepatitis C; Z13.220 Encounter for screening for lipoid disorders; M54.50 Low back pain, unspecified; Z13.1 Encounter for screening for diabetes mellitus
CPT/HCPCS: 36415; 49083; 80053; 80061; 81374; 85610; 85730; 86706; 87340; 87389; 87522

== ENCOUNTER → 2022-11-15 07:52 | Outpatient (CLI) | payer OTHER, SELFPAY ==
[2022-09-12 00:40] VITALS: BMI 30.7
--- NOTE | 2022-11-15 | DI.US.S_ITS ---
PROCEDURE: US PARACENTESIS INDICATIONS: ASCITES TECHNIQUE: The indications, alternatives, benefits, risks, and complications of the procedure were explained to the patient. Written informed consent was obtained and placed in the chart. The abdomen and pelvis were examined sonographically, and an appropriate site was chosen for paracentesis. The skin was prepared and draped in the usual sterile fashion, and 1% lidocaine was infiltrated from the skin down through the peritoneal surface. A 19-gauge catheter-covered needle was then introduced into the peritoneal space, the catheter was advanced and the needle was withdrawn, and thereafter peritoneal fluid was withdrawn. The catheter was then removed and a dressing was applied. The fluid was discarded if the clinician did not order diagnostic testing of the fluid. COMPARISON: [facility], PARACENTESIS, 11/12/2022, 14:31. [facility], PARACENTESIS, 11/07/2022, 10:21. FINDINGS: Access site: Right lower quadrant Needle: One-Step centesis catheter with introducer needle. Fluid volume and description: 5000 mL; clear. Fluid sent for diagnostic testing: Not requested by referring physician. Medications: 1% lidocaine for local anaesthesia. Complications: None. IMPRESSION: Successful ultrasound-guided paracentesis. Dictated by: Santiago De La Rosa M.D. on 11/15/2022 at 12:04 Approved by: Santiago De La Rosa M.D. on 11/15/2022 at 12:04
== END ==
LOC: US 07:52
PROVIDERS: PCP Nurse Practitioner Family; Referring Provider Nurse Practitioner Family; Visit Provider Nurse Practitioner Family
DX: R18.8 Other ascites (principal)
CPT/HCPCS: 49083

== ENCOUNTER → 2022-11-28 13:42 | Outpatient (CLI) | payer OTHER, SELFPAY ==
[2022-09-12 00:40] VITALS: BMI 30.7
--- NOTE | 2022-11-28 | DI.US.S_ITS ---
PROCEDURE: US PARACENTESIS INDICATIONS: ASCITES TECHNIQUE: The indications, alternatives, benefits, risks, and complications of the procedure were explained to the patient. Written informed consent was obtained and placed in the chart. The abdomen and pelvis were examined sonographically, and an appropriate site was chosen for paracentesis. The skin was prepared and draped in the usual sterile fashion, and 1% lidocaine was infiltrated from the skin down through the peritoneal surface. A 19-gauge catheter-covered needle was then introduced into the peritoneal space, the catheter was advanced and the needle was withdrawn, and thereafter peritoneal fluid was withdrawn. The catheter was then removed and a dressing was applied. The fluid was discarded if the clinician did not order diagnostic testing of the fluid. COMPARISON: [facility], PARACENTESIS, 11/15/2022, 8:06. FINDINGS: Access site: Right lower quadrant Needle: One-Step centesis catheter with introducer needle. Fluid volume and description: 5000 cc yellow clear Fluid sent for diagnostic testing: None Medications: 1% lidocaine for local anaesthesia. Complications: None. Procedure was well tolerated. IMPRESSION: Successful ultrasound-guided therapeutic paracentesis. 5 L removed. Dictated by: Juarez Mesa M.D. on 11/28/2022 at 16:37 Approved by: Juarez Mesa M.D. on 11/28/2022 at 16:38
== END ==
LOC: US 13:42
PROVIDERS: PCP Nurse Practitioner Family; Referring Provider Nurse Practitioner Family; Visit Provider Nurse Practitioner Family
DX: R18.8 Other ascites (principal)
CPT/HCPCS: 49083

== ENCOUNTER → 2022-11-30 12:26 | Outpatient (CLI) | payer OTHER, SELFPAY ==
[2022-09-12 00:40] VITALS: BMI 30.7
--- NOTE | 2022-11-30 | DI.US.S_ITS ---
PROCEDURE: US PARACENTESIS INDICATIONS: ASCITIES TECHNIQUE: The indications, alternatives, benefits, risks, and complications of the procedure were explained to the patient. Written informed consent was obtained and placed in the chart. The abdomen and pelvis were examined sonographically, and an appropriate site was chosen for paracentesis. The skin was prepared and draped in the usual sterile fashion, and 1% lidocaine was infiltrated from the skin down through the peritoneal surface. A 19-gauge catheter-covered needle was then introduced into the peritoneal space, the catheter was advanced and the needle was withdrawn, and thereafter peritoneal fluid was withdrawn. The catheter was then removed and a dressing was applied. The fluid was discarded if the clinician did not order diagnostic testing of the fluid. COMPARISON: [facility], , PARACENTESIS, 11/28/2022, 13:47. FINDINGS: Access site: Right lower quadrant Needle: One-Step centesis catheter with introducer needle. Fluid volume and description: 5000 mL; clear. Fluid sent for diagnostic testing: Not requested by referring physician. Medications: 1% lidocaine for local anaesthesia. Complications: None. IMPRESSION: Successful ultrasound-guided paracentesis. Dictated by: Santiago De La Rosa M.D. on 12/01/2022 at 8:14 Approved by: Santiago De La Rosa M.D. on 12/01/2022 at 8:15
== END ==
LOC: US 12:27
PROVIDERS: PCP Nurse Practitioner Family; Referring Provider Nurse Practitioner Family; Visit Provider Nurse Practitioner Family
DX: R18.8 Other ascites (principal)
CPT/HCPCS: 49083

== ENCOUNTER → 2022-12-04 12:44 | Outpatient (CLI) | payer OTHER, SELFPAY ==
[2022-09-12 00:40] VITALS: BMI 30.7
--- NOTE | 2022-12-04 | DI.US.S_ITS ---
PROCEDURE: US PARACENTESIS INDICATIONS: Other ascites TECHNIQUE: The indications, alternatives, benefits, risks, and complications of the procedure were explained to the patient. Written informed consent was obtained and placed in the chart. The abdomen and pelvis were examined sonographically, and an appropriate site was chosen for paracentesis. The skin was prepared and draped in the usual sterile fashion, and 1% lidocaine was infiltrated from the skin down through the peritoneal surface. A 19-gauge catheter-covered needle was then introduced into the peritoneal space, the catheter was advanced and the needle was withdrawn, and thereafter peritoneal fluid was withdrawn. The catheter was then removed and a dressing was applied. The fluid was discarded if the clinician did not order diagnostic testing of the fluid. COMPARISON: [facility], PARACENTESIS, 11/30/2022, 13:10. FINDINGS: Access site: Left lower quadrant Needle: One-Step centesis catheter with introducer needle. Fluid volume and description: 5000 mL of clear, pankaj ascites. Fluid sent for diagnostic testing: Therapeutic paracentesis. Medications: 1% lidocaine for local anaesthesia. Complications: None. IMPRESSION: Successful ultrasound-guided paracentesis. Dictated by: Albino Hernandez M.D. on 12/04/2022 at 15:28 Approved by: Albino Hernandez M.D. on 12/04/2022 at 15:29
== END ==
LOC: US 12:44
PROVIDERS: PCP Nurse Practitioner Family; Referring Provider Nurse Practitioner Family; Visit Provider Nurse Practitioner Family
DX: R18.8 Other ascites (principal)
CPT/HCPCS: 49083

== ENCOUNTER → 2022-12-07 15:10 | Outpatient (CLI) | payer OTHER, SELFPAY ==
[2022-09-12 00:40] VITALS: BMI 30.7
--- NOTE | 2022-12-07 | DI.US.S_ITS ---
PROCEDURE: US PARACENTESIS INDICATIONS: Other ascites TECHNIQUE: The indications, alternatives, benefits, risks, and complications of the procedure were explained to the patient. Written informed consent was obtained and placed in the chart. The abdomen and pelvis were examined sonographically, and an appropriate site was chosen for paracentesis. The skin was prepared and draped in the usual sterile fashion, and 1% lidocaine was infiltrated from the skin down through the peritoneal surface. A 19-gauge catheter-covered needle was then introduced into the peritoneal space, the catheter was advanced and the needle was withdrawn, and thereafter peritoneal fluid was withdrawn. The catheter was then removed and a dressing was applied. The fluid was discarded if the clinician did not order diagnostic testing of the fluid. COMPARISON: [facility], PARACENTESIS, 12/04/2022, 13:23. [facility], PARACENTESIS, 11/30/2022, 13:10. FINDINGS: Access site: Right lower quadrant Needle: One-Step centesis catheter with introducer needle. Fluid volume and description: 5000 mL; clear Fluid sent for diagnostic testing: Not requested by referring physician. Medications: 1% lidocaine for local anaesthesia. Complications: None. IMPRESSION: Successful ultrasound-guided paracentesis. Dictated by: Santiago De La Rosa M.D. on 12/07/2022 at 17:13 Approved by: Santiago De La Rosa M.D. on 12/07/2022 at 17:13
== END ==
LOC: US 15:10
PROVIDERS: PCP Nurse Practitioner Family; Referring Provider Nurse Practitioner Family; Visit Provider Nurse Practitioner Family
DX: R18.8 Other ascites (principal)
CPT/HCPCS: 49083

== ENCOUNTER → 2022-12-11 15:13 | Outpatient (CLI) | payer OTHER, SELFPAY ==
[2022-09-12 00:40] VITALS: BMI 30.7
--- NOTE | 2022-12-11 | DI.US.S_ITS ---
PROCEDURE: US PARACENTESIS INDICATIONS: ASCITES TECHNIQUE: The indications, alternatives, benefits, risks, and complications of the procedure were explained to the patient. Written informed consent was obtained and placed in the chart. The abdomen and pelvis were examined sonographically, and an appropriate site was chosen for paracentesis. The skin was prepared and draped in the usual sterile fashion, and 1% lidocaine was infiltrated from the skin down through the peritoneal surface. A 19-gauge catheter-covered needle was then introduced into the peritoneal space, the catheter was advanced and the needle was withdrawn, and thereafter peritoneal fluid was withdrawn. The catheter was then removed and a dressing was applied. The fluid was discarded if the clinician did not order diagnostic testing of the fluid. COMPARISON: [facility], , PARACENTESIS, 12/07/2022, 15:38. FINDINGS: Access site: Right lower quadrant Needle: One-Step centesis catheter with introducer needle. Fluid volume and description: 4300 cc of yellowish fluid. Fluid sent for diagnostic testing: None Medications: 1% lidocaine for local anaesthesia. Complications: None. IMPRESSION: Successful ultrasound-guided paracentesis. Dictated by: Jeovanny Renteria M.D. on 12/11/2022 at 16:43 Approved by: Jeovanny Renteria M.D. on 12/11/2022 at 16:43
== END ==
PROVIDERS: PCP Nurse Practitioner Family; Referring Provider Nurse Practitioner Family; Visit Provider Nurse Practitioner Family
DX: R18.8 Other ascites (principal)
CPT/HCPCS: 49083

== ENCOUNTER → 2022-12-13 12:13 | Outpatient (CLI) | payer OTHER, SELFPAY ==
[2022-09-12 00:40] VITALS: BMI 30.7
[2022-12-14 04:31] LABS: Cholesterol HDL Ratio 2.5 ratio (0.0-4.4); Cholesterol,Total 92 mg/dL (100-199); HDL Cholesterol 37 mg/dL (>39); LDL Cholesterol Cal 41 mg/dL (0-99); Triglycerides 59 mg/dL (0-149); VLDL Cholesterol Cal 14 mg/dL (5-40)
== END ==
PROVIDERS: PCP Nurse Practitioner Family; Referring Provider Nurse Practitioner Family; Visit Provider Nurse Practitioner Family
DX: I10 Essential (primary) hypertension (principal); Z51.81 Encounter for therapeutic drug level monitoring; Z13.220 Encounter for screening for lipoid disorders
CPT/HCPCS: 36415; 80061

== ENCOUNTER → 2022-12-14 10:01 | Outpatient (CLI) | payer OTHER, SELFPAY ==
[2022-09-12 00:40] VITALS: BMI 30.7
--- NOTE | 2022-12-14 | DI.US.S_ITS ---
PROCEDURE: US PARACENTESIS INDICATIONS: ASCITIES TECHNIQUE: The indications, alternatives, benefits, risks, and complications of the procedure were explained to the patient. Written informed consent was obtained and placed in the chart. The abdomen and pelvis were examined sonographically, and an appropriate site was chosen for paracentesis. The skin was prepared and draped in the usual sterile fashion, and 1% lidocaine was infiltrated from the skin down through the peritoneal surface. A 19-gauge catheter-covered needle was then introduced into the peritoneal space, the catheter was advanced and the needle was withdrawn, and thereafter peritoneal fluid was withdrawn. The catheter was then removed and a dressing was applied. The fluid was discarded if the clinician did not order diagnostic testing of the fluid. COMPARISON: [facility], PARACENTESIS, 12/07/2022, 15:38. FINDINGS: Access site: Right lower quadrant Needle: One-Step centesis catheter with introducer needle. Fluid volume and description: 3300 mL Fluid sent for diagnostic testing: Not requested by referring physician. Medications: 1% lidocaine for local anaesthesia. Complications: None. IMPRESSION: Successful ultrasound-guided paracentesis. Dictated by: Santiago De La Rosa M.D. on 12/18/2022 at 8:37 Approved by: Santiago De La Rosa M.D. on 12/18/2022 at 8:38
== END ==
PROVIDERS: PCP Nurse Practitioner Family; Referring Provider Nurse Practitioner Family; Visit Provider Nurse Practitioner Family
DX: R18.8 Other ascites (principal)
CPT/HCPCS: 49083

== ENCOUNTER → 2022-12-17 11:49 | Outpatient (CLI) | payer OTHER, SELFPAY ==
[2022-09-12 00:40] VITALS: BMI 30.7
[2022-12-17 14:16] LABS: Basophils Absolute Auto 100 /uL (0-100); Basophils Percent Auto 1.4 % (0-2); Eosinophils Absolute Auto 0 /uL (0-450); Eosinophils Percent Auto 1.2 % (2-4); Hematocrit 22.7 % (36-46); Hemoglobin 7.7 g/dL (12.0-16.0); Lymphocytes Absolute Auto 700 /uL (1100-4500); Lymphocytes Percent Auto 18.4 % (25-40); Mean Corpuscular HGB Conc 33.7 % (30-36); Mean Corpuscular Hemoglobin 29.2 PG (26-34); Mean Corpuscular Volume 86.5 fL (80-100); Monocytes Absolute Auto 500 /uL (0-900); Monocytes Percent Auto 11.6 % (3-14); Neutrophils Absolute Auto 2700 /uL (1500-7000); Neutrophils Percent Auto 67.4 % (50-75); Platelet Count 114 X10^3/uL (150-400); Red Blood Cell Count 2.63 X10^6/uL (4.0-5.2)
[2022-12-17 14:20] LABS: Add Manual Diff / Slide Review SLIDE REVIEW
[2022-12-17 14:31] LABS: INR 1.3 (0.9-1.3); Prothrombin Time 15.5 SECONDS (10.1-12.7)
[2022-12-17 14:39] LABS: Anisocytosis 1+
[2022-12-17 14:52] LABS: Alanine Aminotransferase 21 IU/L (<35); Albumin 2.1 g/dL (3.5-5.0); Albumin Globulin Ratio 0.7 (1.0-2.8); Alkaline Phosphatase 99 U/L (38-126); Aspartate Aminotransferase 44 IU/L (14-36); BUN Creatinine Ratio 23.7 (6-22); Bilirubin Total 1.1 mg/dL (0.2-1.3); Blood Urea Nitrogen 18 mg/dL (7-17); Calcium 7.6 mg/dL (8.4-10.2); Carbon Dioxide 27 mmol/L (22-32); Chloride 102 mmol/L (98-107); Estimated Glomerular Filt Rate > 60 mL/min (>60); Globulin 2.9 g/dL (1.7-4.1); Glucose 99 mg/dL (80-110); HEMOLYSIS < 15 (0-50); Potassium 4.5 mmol/L (3.4-5.1); Sodium 130 mmol/L (137-145)
[2022-12-18 02:55] LABS: Cholesterol HDL Ratio 2.6 ratio (0.0-4.4); Cholesterol,Total 92 mg/dL (100-199); HDL Cholesterol 35 mg/dL (>39); LDL Cholesterol Cal 44 mg/dL (0-99); Triglycerides 57 mg/dL (0-149); VLDL Cholesterol Cal 13 mg/dL (5-40)
== END ==
PROVIDERS: PCP Nurse Practitioner Family; Referring Provider Nurse Practitioner Family; Visit Provider Nurse Practitioner Family
DX: R18.8 Other ascites (principal); I10 Essential (primary) hypertension; Z51.81 Encounter for therapeutic drug level monitoring; Z13.220 Encounter for screening for lipoid disorders
CPT/HCPCS: 36415; 80053; 80061; 85025; 85610

== ENCOUNTER → 2022-12-18 14:05 | Outpatient (CLI) | payer OTHER, SELFPAY ==
[2022-09-12 00:40] VITALS: BMI 30.7
--- NOTE | 2022-12-18 | DI.US.S_ITS ---
PROCEDURE: US PARACENTESIS INDICATIONS: ASCITIES TECHNIQUE: The indications, alternatives, benefits, risks, and complications of the procedure were explained to the patient. Written informed consent was obtained and placed in the chart. The abdomen and pelvis were examined sonographically, and an appropriate site was chosen for paracentesis. The skin was prepared and draped in the usual sterile fashion, and 1% lidocaine was infiltrated from the skin down through the peritoneal surface. A 19-gauge catheter-covered needle was then introduced into the peritoneal space, the catheter was advanced and the needle was withdrawn, and thereafter peritoneal fluid was withdrawn. The catheter was then removed and a dressing was applied. The fluid was discarded if the clinician did not order diagnostic testing of the fluid. COMPARISON: [facility], PARACENTESIS, 12/11/2022, 15:34. FINDINGS: Access site: Right lower quadrant Needle: One-Step centesis catheter with introducer needle. Fluid volume and description: 5000 mL; clear. Fluid sent for diagnostic testing: Not requested. Medications: 1% lidocaine for local anaesthesia. Complications: None. IMPRESSION: Successful ultrasound-guided paracentesis. Dictated by: Santiago De La Rosa M.D. on 12/18/2022 at 17:24 Approved by: Santiago De La Rosa M.D. on 12/18/2022 at 17:26
== END ==
PROVIDERS: PCP Nurse Practitioner Family; Referring Provider Nurse Practitioner Family; Visit Provider Nurse Practitioner Family
DX: R18.8 Other ascites (principal)
CPT/HCPCS: 49083

== ENCOUNTER → 2022-12-21 15:08 | Outpatient (CLI) | payer OTHER, SELFPAY ==
[2022-09-12 00:40] VITALS: BMI 30.7
--- NOTE | 2022-12-21 | DI.US.S_ITS ---
PROCEDURE: US ABDOMEN LIMITED INDICATIONS: ASCITES - EVALUATE FOR PARACENTESIS TECHNIQUE: Real-time focused scanning was performed of the abdomen, with image documentation. COMPARISON: [facility], , US ABDOMEN LIMITED, 09/12/2022, 14:02. FINDINGS: Targeted ultrasound of the abdomen for marking of paracentesis window. The window is narrow, most within the right lateral quadrant. Decision was made to not undergo paracentesis in order to mitigate risk of complications. IMPRESSION: No paracentesis performed. Dictated by: Larry Adams M.D. on 12/21/2022 at 16:19 Approved by: Larry Adams M.D. on 12/21/2022 at 16:20
== END ==
LOC: US 15:08
PROVIDERS: PCP Nurse Practitioner Family; Referring Provider Nurse Practitioner Family; Visit Provider Nurse Practitioner Family
DX: R18.8 Other ascites (principal)
CPT/HCPCS: 76705

== ENCOUNTER → 2022-12-25 14:10 | Outpatient (CLI) | payer OTHER, SELFPAY ==
[2022-09-12 00:40] VITALS: BMI 30.7
--- NOTE | 2022-12-25 | DI.US.S_ITS ---
PROCEDURE: US ABDOMEN LIMITED INDICATIONS: ASCITIES TECHNIQUE: Real-time focused scanning was performed of the abdomen, with image documentation. COMPARISON: [facility], , US ABDOMEN LIMITED, 12/21/2022, 15:37. FINDINGS: There is moderate ascites within the bilateral lower quadrants; however multiple loops of bowel are visualized within the ascitic fluid. No safe window for paracentesis is visualized. IMPRESSION: Moderate ascites. No safe window for paracentesis. Dictated by: Lois Horton M.D. on 12/25/2022 at 16:04 Approved by: Lois Horton M.D. on 12/25/2022 at 16:05
== END ==
LOC: US 14:10
PROVIDERS: PCP Nurse Practitioner Family; Referring Provider Nurse Practitioner Family; Visit Provider Nurse Practitioner Family
DX: R18.8 Other ascites (principal)
CPT/HCPCS: 76705

== ENCOUNTER → 2022-12-28 10:10 | Outpatient (CLI) | payer OTHER, SELFPAY ==
[2022-09-12 00:40] VITALS: BMI 30.7
--- NOTE | 2022-12-28 | DI.US.S_ITS ---
PROCEDURE: US PARACENTESIS INDICATIONS: ASCITIES TECHNIQUE: The indications, alternatives, benefits, risks, and complications of the procedure were explained to the patient. Written informed consent was obtained and placed in the chart. The abdomen and pelvis were examined sonographically, and an appropriate site was chosen for paracentesis. The skin was prepared and draped in the usual sterile fashion, and 1% lidocaine was infiltrated from the skin down through the peritoneal surface. A 19-gauge catheter-covered needle was then introduced into the peritoneal space, the catheter was advanced and the needle was withdrawn, and thereafter peritoneal fluid was withdrawn. The catheter was then removed and a dressing was applied. The fluid was discarded if the clinician did not order diagnostic testing of the fluid. COMPARISON: [facility], , PARACENTESIS, 12/18/2022, 14:27. FINDINGS: Access site: Right lateral abdominal wall Needle: One-Step centesis catheter with introducer needle. Fluid volume and description: 4.7 L clear fluid Fluid sent for diagnostic testing: Now Medications: 1% lidocaine for local anaesthesia. Complications: None. IMPRESSION: Successful ultrasound-guided paracentesis. Dictated by: Larry Adams M.D. on 12/28/2022 at 14:10 Approved by: Larry Adams M.D. on 12/28/2022 at 14:11
== END ==
PROVIDERS: PCP Nurse Practitioner Family; Referring Provider Nurse Practitioner Family; Visit Provider Nurse Practitioner Family
DX: R18.8 Other ascites (principal)
CPT/HCPCS: 49083

== ENCOUNTER 2022-12-28 10:58 | Emergency (ER) | payer OTHER, SELFPAY ==
[2022-09-12 00:40] VITALS: BMI 30.7
[2022-12-28] VITALS (22 sets, daily range): BP systolic 120–160; BP diastolic 55–76; PULSE 76–91; RESP 12–29; TEMP 36.4–36.9; O2SAT 91–100; BMI 22.8
--- NOTE | 2022-12-28 11:27 | ED_ITS ---
HPI - Dizziness General Chief Complaint: Dizziness Stated Complaint: HX Hep C/ labs came back showing anemia/lighthead Time Seen by Provider: 12/28/22 11:20 Source: patient Mode of arrival: Family Vehicle History of Present Illness HPI Narrative: Patient is a 67-year-old female history of hepatitis-C with ascites she gets a paracentesis twice a day week on Saturday and Saturday she previously had a history of anemia and was admitted. She had outside blood work done this week and was told by her [employer] to go to the ED for a blood transfusion. She denies any dizziness lightheadedness for shortness of breath. She feels chronically fatigued but denies fever. She has no abdominal pain. Related Data Previous Rx's Medication Instructions Recorded blood pressure monitor #1 ea 09/16/22 spironolactone 25 mg tablet 25 mg PO DAILY 30 days #30 tabs 09/16/22 Allergies Allergy/AdvReac Type Severity Reaction Status Date / Time erythromycin base Allergy Intermediate mouth Verified 12/28/22 11:14 thrush. Opioids - Morphine Analogues AdvReac Mild severe Verified 12/28/22 11:14 nausea and insomnia Review of Systems Review of Systems ROS Unobtainable: All systems reviewed & are unremarkable except as noted in HPI and below Patient History Surgical History Status post hysterectomy Status post tubal ligation Family History Brother Age: 74 High cholesterol Father Heart disease Social History household members: none Smoking Status: Never smoker alcohol intake: never Smoking Status: Never smoker alcohol intake frequency: other Substance Use Type: does not use Exam Initial Vital Signs Initial Vital Signs: Vital Signs Temperature 97.5 F L 12/28/22 11:09 Pulse Rate 76 12/28/22 11:09 Respiratory Rate 16 12/28/22 11:09 Blood Pressure 152/69 H 12/28/22 11:09 Pulse Oximetry 100 12/28/22 11:09 Oxygen Delivery Method Room Air 12/28/22 11:09 GENERAL: 67-year-old female overall appears well not significantly HEENT: Head atraumatic,EOMI, pupils reactive, face symmetric, moist mucous membranes CARDIOVASCULAR: Regular rate and rhythm without murmurs, rubs or gallops. RESPIRATORY: Breath sounds equal bilaterally, no wheezes rales or rhonchi. ABDOMEN: Soft, nontender. Normoactive bowel sounds all 4 quadrants. No guarding or rebound. EXTREMITIES: Normal range of motion, no clubbing or edema. Neurovascularly intact NEUROLOGICAL: Alert and oriented x4. SKIN: Warm, dry, no laceration, no petechiae, no rashes or lesions. Course Orders Ordered: ED Orders 12/28/22 11:26 Basic Metabolic Panel Stat Complete Blood Count AUTO DIFF Stat PRBC [Packed Cells] Stat Troponin I Stat Type and Screen Stat 12/28/22 11:53 EKG-12 Lead Stat Vital Signs Vital signs: Vital Signs - 8 hr 12/28/22 11:09 12/28/22 13:46 12/28/22 14:03 Temperature 97.5 F L 98.4 F 98.4 F Pulse Rate 76 80 81 Respiratory Rate 16 25 H 20 Blood Pressure 152/69 H 120/55 L 127/60 Pulse Oximetry 100 Oxygen Delivery Method Room Air 12/28/22 11:24 12/28/22 11:24 12/28/22 11:30 Temperature Pulse Rate 80 Respiratory Rate 28 H Blood Pressure 160/76 H 152/67 H Pulse Oximetry 100 Oxygen Delivery Method 12/28/22 11:30 12/28/22 12:00 12/28/22 12:00 Temperature Pulse Rate 77 81 Respiratory Rate 27 H 23 Blood Pressure 153/67 H Pulse Oximetry 96 98 Oxygen Delivery Method 12/28/22 12:30 12/28/22 12:30 12/28/22 13:00 Temperature Pulse Rate 83 91 H Respiratory Rate 23 21 Blood Pressure 158/71 H Pulse Oximetry 96 Oxygen Delivery Method 12/28/22 13:01 12/28/22 13:01 12/28/22 13:30 Temperature Pulse Rate 88 Respiratory Rate 20 Blood Pressure 138/65 133/60 Pulse Oximetry Oxygen Delivery Method 12/28/22 13:30 12/28/22 13:44 12/28/22 13:44 Temperature Pulse Rate 79 80 Respiratory Rate 20 26 H Blood Pressure 120/55 L Pulse Oximetry 100 Oxygen Delivery Method 12/28/22 13:45 12/28/22 13:45 12/28/22 13:50 Temperature Pulse Rate 80 82 Respiratory Rate 25 H 26 H Blood Pressure 130/60 Pulse Oximetry 100 99 Oxygen Delivery Method 12/28/22 13:50 12/28/22 13:55 12/28/22 13:55 Temperature Pulse Rate 83 Respiratory Rate 24 Blood Pressure 135/60 128/59 L Pulse Oximetry 98 Oxygen Delivery Method 12/28/22 14:00 12/28/22 14:00 12/28/22 14:05 Temperature Pulse Rate 83 Respiratory Rate 22 Blood Pressure 140/63 127/60 Pulse Oximetry 91 Oxygen Delivery Method 12/28/22 14:05 12/28/22 14:10 12/28/22 14:10 Temperature Pulse Rate 83 85 Respiratory Rate 24 25 H Blood Pressure 144/67 H Pulse Oximetry 98 98 Oxygen Delivery Method 12/28/22 14:15 12/28/22 14:15 12/28/22 14:20 Temperature Pulse Rate 86 Respiratory Rate 23 Blood Pressure 135/63 146/67 H Pulse Oximetry 98 Oxygen Delivery Method 12/28/22 14:20 12/28/22 14:25 12/28/22 14:25 Temperature Pulse Rate 85 84 Respiratory Rate 21 22 Blood Pressure 145/67 H Pulse Oximetry 98 98 Oxygen Delivery Method 12/28/22 14:30 12/28/22 14:30 12/28/22 15:00 Temperature Pulse Rate 81 Respiratory Rate 29 H Blood Pressure 142/68 H 153/73 H Pulse Oximetry 98 Oxygen Delivery Method 12/28/22 15:00 Temperature Pulse Rate 86 Respiratory Rate 12 Blood Pressure Pulse Oximetry 97 Oxygen Delivery Method MDM - Dizziness Lab Data 12/28/22 11:26 12/28/22 11:26 Labs: Lab Results 12/28/22 12/28/22 12/28/22 Range/Units 11:26 11:26 11:26 WBC 3.4 L (4.5-11.0) X10^3/uL RBC 2.75 L (4.0-5.2) X10^6/uL Hgb 7.5 L (12.0-16.0) g/dL Hct 22.7 L (36-46) % MCV 82.5 (80-100) fL MCH 27.3 (26-34) PG MCHC 33.0 (30-36) % RDW 16.8 H (11.6-14.8) % Plt Count 119 L (150-400) X10^3/uL Neut % (Auto) 67.4 (50-75) % Lymph % (Auto) 19.4 L (25-40) % [place] % (Auto) 11.1 (3-14) % Eos % (Auto) 1.0 L (2-4) % Baso % (Auto) 1.1 (0-2) % Neut # (Auto) 2300 (7985-9845) /uL Lymph # (Auto) 700 L (7932-8382) /uL [place] # (Auto) 400 (0-900) /uL Eos # (Auto) 0 (0-450) /uL Baso # (Auto) 0 (0-100) /uL RBC Morphology Normal morphology Sodium 131 L (137-145) mmol/L Potassium 3.2 L (3.4-5.1) mmol/L Chloride 103 (98-107) mmol/L Carbon Dioxide 27 (22-32) mmol/L BUN 20 H (7-17) mg/dL Creatinine 0.85 (0.52-1.04) mg/dL Estimated GFR > 60 (>60) mL/min BUN/Creatinine Ratio 23.5 H (6-22) Glucose 98 (80-110) mg/dL Calcium 7.7 L (8.4-10.2) mg/dL Troponin I < 0.012 (0.01-0.034) ng/mL Blood Type A Positive Antibody Screen Negative Crossmatch See Detail ECG Data Interpretation: Normal sinus rhythm rate 77 OH interval 140 QRS [address] changes no T- wave inversions MDM Narrative Medical decision making narrative: Patient 67-year-old female history of hepatitis-C ascites and anemia. Presents today for low blood counts. She has symptoms however hemoglobin is slightly lower than what it was on December 17. He had hematocrit 227 previously 7.7 and 22.7 respectively. She is given 1 unit blood. Vitals are stable. No evidence infection. She would a paracentesis today as she does every week. It was uncomplicated. She is hungry and requesting food. Discharge Plan Departure Patient Disposition: Home Clinical Impression: Anemia Instructions: Anemia Activity Restrictions/Additional Instructions: *You have been diagnosed with anemia *What to do: At this time you did receive 1 unit of blood. Please follow-up with your primary care provider continue all medications and paracentesis *Continue to take medications as directed *Follow up with your primary care provider in 2-3 days or call [phone] *Return to ER if you should have dizziness lightheadedness shortness of breath or any new, worsening or concerning symptoms Prescriptions: No Action spironolactone 25 mg tablet 25 mg PO DAILY 30 Days Qty: 30 0RF (DME) blood pressure monitor Kit See Rx Instructions .Route Qty: 1 0RF Rx Instructions: One BP monitor for home monitoring Referrals: Katarzyna Gonsales RN [Primary Care Provider] - Stand Alone Forms: Patient Portal/API
[2022-12-28 11:59] LABS: Basophils Absolute Auto 0 /uL (0-100); Eosinophils Absolute Auto 0 /uL (0-450); Hemoglobin 7.5 g/dL (12.0-16.0); Lymphocytes Absolute Auto 700 /uL (1100-4500); Monocytes Absolute Auto 400 /uL (0-900); Red Blood Cell Count 2.75 X10^6/uL (4.0-5.2)
[2022-12-28 12:05] LABS: Basophils Percent Auto 1.1 % (0-2); Hematocrit 22.7 % (36-46); Lymphocytes Percent Auto 19.4 % (25-40); Mean Corpuscular Hemoglobin 27.3 PG (26-34); Mean Corpuscular Volume 82.5 fL (80-100); Monocytes Percent Auto 11.1 % (3-14); Neutrophils Absolute Auto 2300 /uL (1500-7000); Neutrophils Percent Auto 67.4 % (50-75); Red Cell Distribution Width 16.8 % (11.6-14.8); White Blood Cell Count 3.4 X10^3/uL (4.5-11.0)
[2022-12-28 12:07] LABS: Add Manual Diff / Slide Review SLIDE REVIEW
[2022-12-28 12:12] LABS: BUN Creatinine Ratio 23.5 (6-22); Blood Urea Nitrogen 20 mg/dL (7-17); Calcium 7.7 mg/dL (8.4-10.2); Carbon Dioxide 27 mmol/L (22-32); Chloride 103 mmol/L (98-107); Estimated Glomerular Filt Rate > 60 mL/min (>60); Glucose 98 mg/dL (80-110); HEMOLYSIS < 15 (0-50); Potassium 3.2 mmol/L (3.4-5.1); Sodium 131 mmol/L (137-145)
[2022-12-28 12:22] LABS: Troponin I < 0.012 ng/mL (0.01-0.034)
[2022-12-28 12:26] LABS: RBC Morphology Normal Morphology
[2022-12-28 12:27] LABS: Platelet Count 119 X10^3/uL (150-400)
== END 2022-12-28 16:00 | disposition home or self-care (01) ==
PROVIDERS: Emergency Provider Emergency Medicine; PCP Nurse Practitioner Family
DX: D64.9 Anemia, unspecified (principal); R42 Dizziness and giddiness; R18.8 Other ascites
CPT/HCPCS: 36430; 49083; 80048; 84484; 85025; 86850; 86900; 86901; 93005; 93010; 99284; P9016

== ENCOUNTER → 2022-12-31 14:05 | Outpatient (CLI) | payer OTHER, SELFPAY ==
[2022-09-12 00:40] VITALS: BMI 30.7
--- NOTE | 2022-12-31 | DI.US.S_ITS ---
PROCEDURE: US ABDOMEN LIMITED INDICATIONS: ASCITIES TECHNIQUE: Real-time focused scanning was performed of the abdomen, with image documentation. COMPARISON: [facility], , US ABDOMEN LIMITED, 12/25/2022, 14:25. FINDINGS: Ultrasound of the 4 quadrants of the abdomen demonstrate [id number] ascites. IMPRESSION: [id number] ascites. This was felt to be insufficient for paracentesis. Dictated by: Roque Hurley M.D. on 12/31/2022 at 17:06 Approved by: Roque Hurley M.D. on 12/31/2022 at 17:08
== END ==
PROVIDERS: PCP Nurse Practitioner Family; Referring Provider Nurse Practitioner Family; Visit Provider Nurse Practitioner Family
DX: R18.8 Other ascites (principal)
CPT/HCPCS: 76705

== ENCOUNTER → 2023-01-30 11:43 | Outpatient (CLI) | payer OTHER, SELFPAY ==
[2022-09-12 00:40] VITALS: BMI 30.7
[2023-01-30 12:47] LABS: Basophils Absolute Auto 0 /uL (0-100); Basophils Percent Auto 0.6 % (0-2); Eosinophils Absolute Auto 100 /uL (0-450); Hematocrit 30.8 % (36-46); Hemoglobin 10.4 g/dL (12.0-16.0); Lymphocytes Absolute Auto 700 /uL (1100-4500); Lymphocytes Percent Auto 12.5 % (25-40); Mean Corpuscular HGB Conc 33.8 % (30-36); Mean Corpuscular Hemoglobin 27.6 PG (26-34); Mean Corpuscular Volume 81.8 fL (80-100); Monocytes Absolute Auto 400 /uL (0-900); Neutrophils Absolute Auto 4300 /uL (1500-7000); Neutrophils Percent Auto 78.9 % (50-75); Platelet Count 170 X10^3/uL (150-400); Red Blood Cell Count 3.77 X10^6/uL (4.0-5.2); Red Cell Distribution Width 20.3 % (11.6-14.8); White Blood Cell Count 5.5 X10^3/uL (4.5-11.0)
[2023-01-30 12:59] LABS: HEMOLYSIS < 15 (0-50); Iron 47 ug/dL (37-170)
[2023-01-30 13:05] LABS: Add Manual Diff / Slide Review SLIDE REVIEW
[2023-01-30 13:07] LABS: Anisocytosis 2+
[2023-01-30 13:10] LABS: Percent Iron Saturation 10 % (15-50); Total Iron Binding Capacity 449 ug/dL (265-497); Transferrin 313 mg/dL (206-381)
[2023-01-30 13:34] LABS: Ferritin 28 ng/mL (11-264)
[2023-01-30 14:05] LABS: Folate 7.7 ng/mL (2.76-20.0); Vitamin B12 > 1000 pg/mL (239-931)
== END ==
PROVIDERS: PCP Nurse Practitioner Family; Referring Provider Nurse Practitioner Family; Visit Provider Nurse Practitioner Family
DX: D64.9 Anemia, unspecified (principal)
CPT/HCPCS: 36415; 82607; 82728; 82746; 83540; 83550; 85025

== ENCOUNTER 2023-02-28 17:43 | Emergency (ER) | payer OTHER, SELFPAY ==
[2022-09-12 00:40] VITALS: BMI 30.7
[2023-02-28] VITALS (18 sets, daily range): BP systolic 144–180; BP diastolic 65–86; PULSE 98–121; RESP 15–32; TEMP 33.7–34.4; O2SAT 96–100; BMI 20.9
--- NOTE | 2023-02-28 17:44 | DI.CT.S_ITS ---
PROCEDURE: CT ABDOMEN PELVIS W CON INDICATIONS: found down, intubated TECHNIQUE: After the administration of intravenous contrast, axial sections acquired from the lung bases to the pubic symphysis. Coronal and sagittal reformats were performed. For radiation dose reduction, the following was used: automated exposure control, adjustment of mA and/or kV according to patient size. COMPARISON: [facility], CT, CT ABDOMEN PELVIS W CON, 09/11/2022, 20:32. [facility], CT, CT ABDOMEN PELVIS W CON, 06/15/2021, 19:15. FINDINGS: Image quality: Excellent. Lung bases: Bibasilar atelectasis. Large hiatal hernia. Heart: No significant findings. ABDOMEN: Liver: Redemonstration of nodular liver contour without definite intrahepatic mass lesion. Gallbladder: Gallbladder stable appearance with diffuse wall thickening which may be related to adjacent ascites. Biliary ducts: No intrahepatic or extrahepatic biliary ductal dilatation identified. Pancreas: Unremarkable. Spleen: No splenomegaly Adrenal Glands: Unremarkable. Kidneys and Ureters: Suggestion of mild striated enhancement of the left renal cortex possibly related to pyelonephritis. No hydronephrosis on either side. No suspicious renal mass lesions. Stomach and Bowel: Stomach, small bowel loops, and colon are unremarkable. Colonic diverticulosis without acute diverticulitis. Mild circumferential wall thickening of the visualized bowel likely related to surrounding ascites. This is not significantly changed. Peritoneum: No free air. Large amount of scattered ascites seen throughout the abdomen and pelvis with suggestion of loculation of the lower pelvis. Ventral Wall: No hernias. There is a drainage catheter identified in the lower abdomen with distal tip terminating in the left lateral abdomen. Abdominal Nodes: No retroperitoneal or mesenteric adenopathy by size criteria. Vessels: Aorta and inferior vena cava are normal in size. PELVIS: Pelvic Organs: Unremarkable. Bladder: Unremarkable. Pelvic Nodes: No enlarged lymph nodes. Miscellaneous: No hernias are seen. Bones: No acute vertebral body compression fractures. Multilevel spondylitic changes throughout the imaged spine. No suspicious osseous lesions. IMPRESSION: Suggestion of striated renal enhancement of the left kidney which may represent pyelonephritis. Infarction may have a similar appearance but thought less likely. No evidence for obstructive uropathy. Large amount of scattered ascites throughout the abdomen and pelvis with suggestion of loculation of the lower abdomen and pelvis. This is new compared to the prior study. Stable appearance of cirrhotic liver without intra hepatic mass lesion. Large hiatal hernia. Colonic diverticulosis without evidence for acute diverticulitis. No acute osseous abnormalities. Dictated by: Albino Hernandez M.D. on 02/28/2023 at 19:02 Approved by: Albino Hernandez M.D. on 02/28/2023 at 19:09
--- NOTE | 2023-02-28 17:44 | DI.CT.S_ITS ---
PROCEDURE: CT HEAD/BRAIN WO CON INDICATIONS: found down TECHNIQUE: Noncontrast 4.5 mm thick angled axial sections acquired from the foramen magnum to the vertex, with coronal and sagittal reformats. For radiation dose reduction, the following was used: automated exposure control, adjustment of mA and/or kV according to patient size. COMPARISON: None. FINDINGS: Image quality: Excellent. CSF spaces: Basal cisterns are patent. No extra-axial fluid collections. Ventricles are normal in size and shape. Brain: No midline shift. No intracranial masses or hemorrhage. Ho-white matter interface is normal. Skull and face: Calvarium and visualized facial bones are intact, without suspicious lesions. Sinuses: Visualized sinuses and mastoids are clear. IMPRESSION: CT head without acute intracranial abnormalities. No mass or mass effect visualized. Dictated by: Albino Hernandez M.D. on 02/28/2023 at 18:22 Approved by: Albino Hernandez M.D. on 02/28/2023 at 18:23
--- NOTE | 2023-02-28 17:44 | DI.CT.S_ITS ---
PROCEDURE: CT CERVICAL SPINE WO CON INDICATIONS: found down, intubated TECHNIQUE: Noncontrast 3 mm thick sections acquired from the skull base to the T4 level. Sagittal and coronal reformats were then constructed. For radiation dose reduction, the following was used: automated exposure control, adjustment of mA and/or kV according to patient size. COMPARISON: None. FINDINGS: Image quality: Excellent. Bones: No acute fractures or dislocations. No acute compression fractures of the vertebral bodies. Craniocervical junction is intact. C1-C2 relationship is preserved. Visualized superior ribs are intact. Moderate multilevel cervical spondylosis throughout the imaged spine. Soft tissues: Prevertebral soft tissues are normal in thickness. No paravertebral hematomas. No apical pneumothoraces. IMPRESSION: CT cervical spine without acute fracture or traumatic malalignment. Moderate multilevel cervical spondylosis. Dictated by: Albino Hernandez M.D. on 02/28/2023 at 18:23 Approved by: Albino Hernandez M.D. on 02/28/2023 at 18:25
--- NOTE | 2023-02-28 17:44 | DI.CT.S_ITS ---
PROCEDURE: CT ANGIO CHEST PE PROTOCOL INDICATIONS: found down, intubated TECHNIQUE: After the administration of intravenous contrast, 2 mm thick sections acquired from the pulmonary apices to the posterior costophrenic angles. 3-dimensional maximum intensity projection (MIP) coronal and sagittal reformats were then acquired through the thorax. For radiation dose reduction, the following was used: automated exposure control, adjustment of mA and/or kV according to patient size. COMPARISON: None. FINDINGS: Image quality: Diagnostic Pulmonary arteries: Pulmonary arteries are normal in size, and demonstrate no intraluminal filling defects to suggest central pulmonary embolism. Lungs and pleura: Mild bibasilar atelectasis. Mild upper lobe predominant pulmonary emphysematous changes. No pleural effusions or pneumothorax. Central and peripheral airways are patent. Mediastinum: Heart size is normal, without pericardial effusion. No mediastinal or hilar adenopathy. Thoracic aorta is normal in caliber and enhancement. Large hiatal hernia. Bones and chest wall: No suspicious bony lesions. Ribs and thoracic spine appear intact throughout. Thyroid gland unremarkable. No axillary or supraclavicular adenopathy. No acute compression fracture. Abdomen: Visualized upper abdominal structures are better evaluated on dedicated CT of the abdomen and pelvis which is dictated as a separate report. IMPRESSION: CT angiogram of the chest without acute pulmonary emboli. No acute right-sided heart strain. Bibasilar atelectasis. No focal airspace disease. Upper lobe predominant pulmonary emphysema. Atherosclerosis. No acute osseous abnormalities. Large hiatal hernia. Dictated by: Albino Hernandez M.D. on 02/28/2023 at 18:30 Approved by: Albino Hernandez M.D. on 02/28/2023 at 18:35
--- NOTE | 2023-02-28 17:56 | ED_ITS ---
HPI - Altered Mental Status <Ibrahima Avalos MD - Last Filed: 03/08/23 07:29> General Chief Complaint: Altered Mental Status Stated Complaint: Found on Ground, Intubated Time Seen by Provider: 02/28/23 17:44 History of Present Illness HPI narrative: Patient brought in by ambulance from home for unresponsive patient. Blood sugar 141. Patient is pupils were dilated, not pinpoint. No Narcan was given. Patient was intubated with 7.0 ETT. Sister has [id number], she had called neighbor to do wellness check. Had not heard from her since yesterday. Neighbor found her in the living room on her back unresponsive. 911 was called. Sister talked to EMS services. Patient is DNR however is amenable for intubation. No CPR. Sister spoke with me by phone, she is on her way here in 40 minutes. She would like to talk to social media job titles regarding end of life and possible extubation. Patient has been very depressed recently but no SI discussion according to sister. Does not drink alcohol. Patient has end-stage liver disease. Patient does self paracentesis Related Data Previous Rx's Medication Instructions Recorded blood pressure monitor #1 ea 09/16/22 spironolactone 25 mg tablet 25 mg PO DAILY 30 days #30 tabs 09/16/22 Allergies Allergy/AdvReac Type Severity Reaction Status Date / Time erythromycin base Allergy Intermediate mouth Verified 12/28/22 11:14 thrush. Opioids - Morphine Analogues AdvReac Mild severe Verified 12/28/22 11:14 nausea and insomnia Review of Systems <Ibrahima Avalos MD - Last Filed: 03/08/23 07:29> Review of Systems ROS Unobtainable: Unobtainable due to medical condition Patient History <Ibrahima Avalos MD - Last Filed: 03/08/23 07:29> Surgical History Status post hysterectomy Status post tubal ligation Family History Brother Age: 74 High cholesterol Father Heart disease Social History household members: none Smoking Status: Never smoker alcohol intake: never Smoking Status: Never smoker alcohol intake frequency: other Substance Use Type: does not use Exam <Ibrahima Avalos MD - Last Filed: 03/08/23 07:29> Narrative Exam Narrative: GENERAL: in no distress, not toxic not dyspneic HEAD: Normocephalic. Atraumatic. EYES: Pupils equal round sluggishly reactive ENT: Dry mucous membrane NECK: Trachea midline. CARDIOVASCULAR: Regular rate and rhythm RESPIRATORY: Clear to auscultation. Breath sounds equal bilaterally. No wheezes, rales, or rhonchi. Patient is intubated GASTROINTESTINAL: Abdomen soft, non-tender EXTREMITIES: No gross deformities. NEURO: Unresponsive to pain stimuli SKIN: Warm and dry Initial Vital Signs Initial Vital Signs: Vital Signs Pulse Rate 121 H 02/28/23 17:58 Respiratory Rate 15 02/28/23 17:58 <Yeny Zaman DO - Last Filed: 03/01/23 06:10> Initial Vital Signs Initial Vital Signs: Vital Signs Pulse Rate 121 H 02/28/23 17:58 Respiratory Rate 15 02/28/23 17:58 Course <Ibrahima Avalos MD - Last Filed: 03/08/23 07:29> Orders Ordered: Discontinued Medications Dextrose (Dextrose 50 % In Water 25 Gm/50 Ml Syringe) 25 gm IV NOW ONE Stop: 02/28/23 18:40 Last Admin: 02/28/23 19:05 Dose: Not Given Documented By: MILLI Calcium Gluconate 4.65 meq/ (Sodium Chloride) 60 mls @ 180 mls/hr IV NOW ONE Stop: 02/28/23 18:58 Last Admin: 02/28/23 19:04 Dose: Not Given Documented By: MILLI Sodium Chloride (Normal Saline 0.9%) 1,000 mls @ 1,000 mls/hr IV BOLUS ONE Stop: 02/28/23 19:41 Last Admin: 02/28/23 19:05 Dose: Not Given Documented By: MILLI Piperacillin Sod/Tazobactam (Sod 4.5 gm/ Sodium Chloride) 100 mls @ 200 mls/hr IV NOW ONE Stop: 02/28/23 18:44 Last Admin: 02/28/23 19:06 Dose: Not Given Documented By: MILLI Insulin Human Regular (Insulin Regular 100 Unit/Ml 3 Ml Vial) 5 unit IV NOW ONE Stop: 02/28/23 18:40 Last Admin: 02/28/23 19:05 Dose: Not Given Documented By: MILLI Sodium Bicarbonate (Sodium Bicarb 8.4% Syringe) 50 meq IV NOW ONE Stop: 02/28/23 18:40 Last Admin: 02/28/23 19:05 Dose: Not Given Documented By: MILLI Sodium Polystyrene Sulfonate (Sodium Polystyrene Sulfon/Sorb 15 Gm/60 Ml Cup) 30 gm PO NOW ONE Stop: 02/28/23 18:40 Last Admin: 02/28/23 19:05 Dose: Not Given Documented By: MILLI Thiamine HCl (Thiamine 200 Mg/2 Ml Vial) 100 mg IM NOW ONE Stop: 02/28/23 17:49 Last Admin: 02/28/23 18:26 Dose: 100 mg Documented By: MILLI Vital Signs Vital signs: Vital Signs - 8 hr 02/28/23 18:06 02/28/23 17:58 02/28/23 18:00 Temperature Pulse Rate 118 H 121 H Respiratory Rate 17 15 Blood Pressure 144/65 H 144/65 H Pulse Oximetry 98 Oxygen Delivery Method Mechanical Ventilation 02/28/23 18:00 02/28/23 18:25 02/28/23 18:25 Temperature Pulse Rate 118 H 110 H Respiratory Rate 16 16 Blood Pressure 162/75 H Pulse Oximetry 100 98 Oxygen Delivery Method 02/28/23 18:30 02/28/23 18:30 02/28/23 18:35 Temperature Pulse Rate 109 H 108 H Respiratory Rate 16 16 Blood Pressure 157/71 H Pulse Oximetry 98 98 Oxygen Delivery Method 02/28/23 18:35 02/28/23 18:40 02/28/23 18:40 Temperature Pulse Rate 107 H Respiratory Rate 16 Blood Pressure 162/72 H 163/72 H Pulse Oximetry 99 Oxygen Delivery Method 02/28/23 18:45 02/28/23 18:45 02/28/23 18:50 Temperature 92.7 F L Pulse Rate 107 H 106 H Respiratory Rate 16 17 Blood Pressure 167/74 H Pulse Oximetry 98 98 Oxygen Delivery Method 02/28/23 18:50 02/28/23 18:55 02/28/23 18:55 Temperature 93.2 F L Pulse Rate 106 H Respiratory Rate 15 Blood Pressure 157/72 H 162/76 H Pulse Oximetry 98 Oxygen Delivery Method 02/28/23 19:00 02/28/23 19:00 02/28/23 19:05 Temperature 93.6 F L Pulse Rate 105 H Respiratory Rate 16 Blood Pressure 161/74 H 163/76 H Pulse Oximetry 98 Oxygen Delivery Method 02/28/23 19:05 02/28/23 19:10 02/28/23 19:10 Temperature 93.6 F L 93.6 F L Pulse Rate 105 H 105 H Respiratory Rate 17 18 Blood Pressure 155/72 H Pulse Oximetry 98 99 Oxygen Delivery Method 02/28/23 19:15 02/28/23 19:15 02/28/23 19:20 Temperature 93.7 F L 93.7 F L Pulse Rate 103 H 105 H Respiratory Rate 17 19 Blood Pressure 167/77 H Pulse Oximetry 99 99 Oxygen Delivery Method 02/28/23 19:20 02/28/23 19:30 02/28/23 19:30 Temperature 93.7 F L Pulse Rate 101 H Respiratory Rate 17 Blood Pressure 158/74 H 166/79 H Pulse Oximetry 100 Oxygen Delivery Method 02/28/23 20:00 02/28/23 20:00 Temperature 93.9 F L Pulse Rate 98 H Respiratory Rate 32 H Blood Pressure 180/86 H Pulse Oximetry 96 Oxygen Delivery Method <Yeny Zaman, - Last Filed: 03/01/23 06:10> Orders Ordered: Discontinued Medications Dextrose (Dextrose 50 % In Water 25 Gm/50 Ml Syringe) 25 gm IV NOW ONE Stop: 02/28/23 18:40 Last Admin: 02/28/23 19:05 Dose: Not Given Documented By: MILLI Calcium Gluconate 4.65 meq/ (Sodium Chloride) 60 mls @ 180 mls/hr IV NOW ONE Stop: 02/28/23 18:58 Last Admin: 02/28/23 19:04 Dose: Not Given Documented By: MILLI Sodium Chloride (Normal Saline 0.9%) 1,000 mls @ 1,000 mls/hr IV BOLUS ONE Stop: 02/28/23 19:41 Last Admin: 02/28/23 19:05 Dose: Not Given Documented By: MILLI Piperacillin Sod/Tazobactam (Sod 4.5 gm/ Sodium Chloride) 100 mls @ 200 mls/hr IV NOW ONE Stop: 02/28/23 18:44 Last Admin: 02/28/23 19:06 Dose: Not Given Documented By: MILLI Insulin Human Regular (Insulin Regular 100 Unit/Ml 3 Ml Vial) 5 unit IV NOW ONE Stop: 02/28/23 18:40 Last Admin: 02/28/23 19:05 Dose: Not Given Documented By: MILLI Sodium Bicarbonate (Sodium Bicarb 8.4% Syringe) 50 meq IV NOW ONE Stop: 02/28/23 18:40 Last Admin: 02/28/23 19:05 Dose: Not Given Documented By: MILLI Sodium Polystyrene Sulfonate (Sodium Polystyrene Sulfon/Sorb 15 Gm/60 Ml Cup) 30 gm PO NOW ONE Stop: 02/28/23 18:40 Last Admin: 02/28/23 19:05 Dose: Not Given Documented By: MILLI Thiamine HCl (Thiamine 200 Mg/2 Ml Vial) 100 mg IM NOW ONE Stop: 02/28/23 17:49 Last Admin: 02/28/23 18:26 Dose: 100 mg Documented By: MILLI Vital Signs Vital signs: Vital Signs - 8 hr 02/28/23 18:06 02/28/23 17:58 02/28/23 18:00 Temperature Pulse Rate 118 H 121 H Respiratory Rate 17 15 Blood Pressure 144/65 H 144/65 H Pulse Oximetry 98 Oxygen Delivery Method Mechanical Ventilation 02/28/23 18:00 02/28/23 18:25 02/28/23 18:25 Temperature Pulse Rate 118 H 110 H Respiratory Rate 16 16 Blood Pressure 162/75 H Pulse Oximetry 100 98 Oxygen Delivery Method 02/28/23 18:30 02/28/23 18:30 02/28/23 18:35 Temperature Pulse Rate 109 H 108 H Respiratory Rate 16 16 Blood Pressure 157/71 H Pulse Oximetry 98 98 Oxygen Delivery Method 02/28/23 18:35 02/28/23 18:40 02/28/23 18:40 Temperature Pulse Rate 107 H Respiratory Rate 16 Blood Pressure 162/72 H 163/72 H Pulse Oximetry 99 Oxygen Delivery Method 02/28/23 18:45 02/28/23 18:45 02/28/23 18:50 Temperature 92.7 F L Pulse Rate 107 H 106 H Respiratory Rate 16 17 Blood Pressure 167/74 H Pulse Oximetry 98 98 Oxygen Delivery Method 02/28/23 18:50 02/28/23 18:55 02/28/23 18:55 Temperature 93.2 F L Pulse Rate 106 H Respiratory Rate 15 Blood Pressure 157/72 H 162/76 H Pulse Oximetry 98 Oxygen Delivery Method 02/28/23 19:00 02/28/23 19:00 02/28/23 19:05 Temperature 93.6 F L Pulse Rate 105 H Respiratory Rate 16 Blood Pressure 161/74 H 163/76 H Pulse Oximetry 98 Oxygen Delivery Method 02/28/23 19:05 02/28/23 19:10 02/28/23 19:10 Temperature 93.6 F L 93.6 F L Pulse Rate 105 H 105 H Respiratory Rate 17 18 Blood Pressure 155/72 H Pulse Oximetry 98 99 Oxygen Delivery Method 02/28/23 19:15 02/28/23 19:15 02/28/23 19:20 Temperature 93.7 F L 93.7 F L Pulse Rate 103 H 105 H Respiratory Rate 17 19 Blood Pressure 167/77 H Pulse Oximetry 99 99 Oxygen Delivery Method 02/28/23 19:20 02/28/23 19:30 02/28/23 19:30 Temperature 93.7 F L Pulse Rate 101 H Respiratory Rate 17 Blood Pressure 158/74 H 166/79 H Pulse Oximetry 100 Oxygen Delivery Method 02/28/23 20:00 02/28/23 20:00 Temperature 93.9 F L Pulse Rate 98 H Respiratory Rate 32 H Blood Pressure 180/86 H Pulse Oximetry 96 Oxygen Delivery Method MDM - Altered Mental Status <Ibrahima Avalos MD - Last Filed: 03/08/23 07:29> Lab Data 02/28/23 17:40 02/28/23 17:40 Labs: Lab Results 02/28/23 02/28/23 02/28/23 Range/Units 17:40 17:40 17:40 WBC 19.9 H (4.5-11.0) X10^3/uL RBC 3.77 L (4.0-5.2) X10^6/uL Hgb 11.3 L (12.0-16.0) g/dL Hct 33.0 L (36-46) % MCV 87.3 (80-100) fL MCH 29.9 (26-34) PG MCHC 34.2 (30-36) % RDW 23.0 H (11.6-14.8) % Plt Count 242 (150-400) X10^3/uL Neut % (Auto) Not Reportable Lymph % (Auto) Not Reportable [place] % (Auto) Not Reportable Eos % (Auto) Not Reportable Baso % (Auto) Not Reportable Lymph # (Auto) Not Reportable [place] # (Auto) Not Reportable Baso # (Auto) Not Reportable Total Counted 100 Seg Neutrophils % 85.0 H (38-70) % Band Neutrophils % 6.0 (3-7) % Lymphocytes % (Manual) 5.0 L (25-45) % Monocytes % (Manual) 4.0 (2-11) % Neutrophils # (Manual) 54217 H (8728-1278) /uL Toxic Granulation Present H RBC Morphology See below Anisocytosis 1+ H Ovalocytes 1+ H [place] Cells 1+ H PT 18.4 H (10.1-12.7) SECONDS INR 1.6 H (0.9-1.3) APTT 33 (26-36) SECONDS ABG pH (7.35-7.45) ABG pCO2 (35-45) mmHg ABG pO2 (80-100) mmHg ABG HCO3 (23-27) mmol/L ABG Total CO2 (23-27) mmol/L ABG O2 Saturation (95-100) % ABG Base Excess (-2-3) mmol/L FiO2 Sodium (137-145) mmol/L Potassium (3.4-5.1) mmol/L Chloride (98-107) mmol/L Carbon Dioxide (22-32) mmol/L BUN (7-17) mg/dL Creatinine (0.52-1.04) mg/dL Estimated GFR (>60) mL/min BUN/Creatinine Ratio (6-22) Glucose (80-110) mg/dL Lactate (0.7-2.1) mmol/L Calcium (8.4-10.2) mg/dL Total Bilirubin (0.2-1.3) mg/dL AST (14-36) IU/L ALT (<35) IU/L Alkaline Phosphatase (38-126) U/L Ammonia (9-30) umol/L Total Creatine Kinase 52 (30-135) U/L Troponin I < 0.012 (0.01-0.034) ng/mL Total Protein (6.3-8.2) g/dL Albumin (3.5-5.0) g/dL Globulin (1.7-4.1) g/dL Albumin/Globulin Ratio (1.0-2.8) Procalcitonin 2.77 H (<0.5) ng/mL Urine Color Urine Appearance Urine pH (4.5-8.0) Ur Specific [place] (1.000-1.035) Urine Protein (Negative) Urine Glucose (UA) (Negative) g/dL Urine Ketones (NEGATIVE) Urine Occult Blood (Negative) Urine Nitrate (Negative) Urine Bilirubin (NEGATIVE) Ur Bilirubin Confirm (Negative) Urine Urobilinogen (0.2) E.U./dL Ur Leukocyte Esterase (NEGATIVE) Urine RBC (0-5/HPF) Urine WBC (0-5/HPF) Ur Squamous Epith Cells (0-5/HPF) Urine Bacteria (None) Hyaline Casts (None) Granular Casts (None) Urine Mucus (Negative) Urine Yeast (None) Ur Culture Indicated? Salicylates 1.1 (<20) mg/dL U Opiates 300ng/mL cut (Negative) Ur Oxycodone Screen (Negative) Urine Methadone Screen (Negative) Acetaminophen < 10 (10-30) ug/mL Ur Barbiturates Screen (Negative) U Tricyclic Antidepress (Negative) Ur Phencyclidine Scrn (Negative) Ur Amphetamines Screen (Negative) U Methamphetamines Scrn (Negative) Ur MDMA Scrn (Ecstasy) (Negative) U Benzodiazepines Scrn (Negative) Urine Cocaine Screen (Negative) U Marijuana (THC) Screen (Negative) Ethyl Alcohol < 10 ( - 10) mg/dL 02/28/23 02/28/23 02/28/23 Range/Units 17:40 17:40 17:40 WBC (4.5-11.0) X10^3/uL RBC (4.0-5.2) X10^6/uL Hgb (12.0-16.0) g/dL Hct (36-46) % MCV (80-100) fL MCH (26-34) PG MCHC (30-36) % RDW (11.6-14.8) % Plt Count (150-400) X10^3/uL Neut % (Auto) Lymph % (Auto) [place] % (Auto) Eos % (Auto) Baso % (Auto) Lymph # (Auto) [place] # (Auto) Baso # (Auto) Total Counted Seg Neutrophils % (38-70) % Band Neutrophils % (3-7) % Lymphocytes % (Manual) (25-45) % Monocytes % (Manual) (2-11) % Neutrophils # (Manual) (2719-9920) /uL Toxic Granulation RBC Morphology Anisocytosis Ovalocytes [place] Cells PT (10.1-12.7) SECONDS INR (0.9-1.3) APTT (26-36) SECONDS ABG pH (7.35-7.45) ABG pCO2 (35-45) mmHg ABG pO2 (80-100) mmHg ABG HCO3 (23-27) mmol/L ABG Total CO2 (23-27) mmol/L ABG O2 Saturation (95-100) % ABG Base Excess (-2-3) mmol/L FiO2 Sodium 125 L (137-145) mmol/L Potassium 6.8 H* (3.4-5.1) mmol/L Chloride 99 (98-107) mmol/L Carbon Dioxide 13 L (22-32) mmol/L BUN 69 H (7-17) mg/dL Creatinine 2.59 H (0.52-1.04) mg/dL Estimated GFR 20 L (>60) mL/min BUN/Creatinine Ratio 26.6 H (6-22) Glucose 118 H (80-110) mg/dL Lactate 7.1 H* (0.7-2.1) mmol/L Calcium 8.7 (8.4-10.2) mg/dL Total Bilirubin 4.7 H (0.2-1.3) mg/dL AST 35 (14-36) IU/L ALT 33 (<35) IU/L Alkaline Phosphatase 108 (38-126) U/L Ammonia 414 H (9-30) umol/L Total Creatine Kinase (30-135) U/L Troponin I (0.01-0.034) ng/mL Total Protein 5.5 L (6.3-8.2) g/dL Albumin 2.3 L (3.5-5.0) g/dL Globulin 3.2 (1.7-4.1) g/dL Albumin/Globulin Ratio 0.7 L (1.0-2.8) Procalcitonin (<0.5) ng/mL Urine Color Urine Appearance Urine pH (4.5-8.0) Ur Specific [place] (1.000-1.035) Urine Protein (Negative) Urine Glucose (UA) (Negative) g/dL Urine Ketones (NEGATIVE) Urine Occult Blood (Negative) Urine Nitrate (Negative) Urine Bilirubin (NEGATIVE) Ur Bilirubin Confirm (Negative) Urine Urobilinogen (0.2) E.U./dL Ur Leukocyte Esterase (NEGATIVE) Urine RBC (0-5/HPF) Urine WBC (0-5/HPF) Ur Squamous Epith Cells (0-5/HPF) Urine Bacteria (None) Hyaline Casts (None) Granular Casts (None) Urine Mucus (Negative) Urine Yeast (None) Ur Culture Indicated? Salicylates (<20) mg/dL U Opiates 300ng/mL cut (Negative) Ur Oxycodone Screen (Negative) Urine Methadone Screen (Negative) Acetaminophen (10-30) ug/mL Ur Barbiturates Screen (Negative) U Tricyclic Antidepress (Negative) Ur Phencyclidine Scrn (Negative) Ur Amphetamines Screen (Negative) U Methamphetamines Scrn (Negative) Ur MDMA Scrn (Ecstasy) (Negative) U Benzodiazepines Scrn (Negative) Urine Cocaine Screen (Negative) U Marijuana (THC) Screen (Negative) Ethyl Alcohol ( - 10) mg/dL 02/28/23 02/28/23 02/28/23 Range/Units 18:32 18:48 18:48 WBC (4.5-11.0) X10^3/uL RBC (4.0-5.2) X10^6/uL Hgb (12.0-16.0) g/dL Hct (36-46) % MCV (80-100) fL MCH (26-34) PG MCHC (30-36) % RDW (11.6-14.8) % Plt Count (150-400) X10^3/uL Neut % (Auto) Lymph % (Auto) [place] % (Auto) Eos % (Auto) Baso % (Auto) Lymph # (Auto) [place] # (Auto) Baso # (Auto) Total Counted Seg Neutrophils % (38-70) % Band Neutrophils % (3-7) % Lymphocytes % (Manual) (25-45) % Monocytes % (Manual) (2-11) % Neutrophils # (Manual) (3630-6011) /uL Toxic Granulation RBC Morphology Anisocytosis Ovalocytes Maia Cells PT (10.1-12.7) SECONDS INR (0.9-1.3) APTT (26-36) SECONDS ABG pH 7.27 L* (7.35-7.45) ABG pCO2 29.8 L (35-45) mmHg ABG pO2 109 H (80-100) mmHg ABG HCO3 14 L (23-27) mmol/L ABG Total CO2 15 L (23-27) mmol/L ABG O2 Saturation 98 (95-100) % ABG Base Excess -13.0 L (-2-3) mmol/L FiO2 25 Sodium (137-145) mmol/L Potassium (3.4-5.1) mmol/L Chloride (98-107) mmol/L Carbon Dioxide (22-32) mmol/L BUN (7-17) mg/dL Creatinine (0.52-1.04) mg/dL Estimated GFR (>60) mL/min BUN/Creatinine Ratio (6-22) Glucose (80-110) mg/dL Lactate (0.7-2.1) mmol/L Calcium (8.4-10.2) mg/dL Total Bilirubin (0.2-1.3) mg/dL AST (14-36) IU/L ALT (<35) IU/L Alkaline Phosphatase (38-126) U/L Ammonia (9-30) umol/L Total Creatine Kinase (30-135) U/L Troponin I (0.01-0.034) ng/mL Total Protein (6.3-8.2) g/dL Albumin (3.5-5.0) g/dL Globulin (1.7-4.1) g/dL Albumin/Globulin Ratio (1.0-2.8) Procalcitonin (<0.5) ng/mL Urine Color [place] Urine Appearance Clear Urine pH 5.0 (4.5-8.0) Ur Specific [place] 1.025 (1.000-1.035) Urine Protein 1+ H (Negative) Urine Glucose (UA) Negative (Negative) g/dL Urine Ketones Trace H (NEGATIVE) Urine Occult Blood 2+ H (Negative) Urine Nitrate Positive H (Negative) Urine Bilirubin 2+ H (NEGATIVE) Ur Bilirubin Confirm Positive H (Negative) Urine Urobilinogen 4.0 H (0.2) E.U./dL Ur Leukocyte Esterase Negative (NEGATIVE) Urine RBC 5-10/hpf H (0-5/HPF) Urine WBC 1-5/hpf (0-5/HPF) Ur Squamous Epith Cells 10-30 /hpf H (0-5/HPF) Urine Bacteria Moderate (10-30) H (None) Hyaline Casts 10-30/lpf (None) Granular Casts 1-5/lpf (None) Urine Mucus 1+ H (Negative) Urine Yeast 0-1/hpf (None) Ur Culture Indicated? Specimen cultured Salicylates (<20) mg/dL U Opiates 300ng/mL cut Negative (Negative) Ur Oxycodone Screen Negative (Negative) Urine Methadone Screen Negative (Negative) Acetaminophen (10-30) ug/mL Ur Barbiturates Screen Negative (Negative) U Tricyclic Antidepress Positive H (Negative) Ur Phencyclidine Scrn Negative (Negative) Ur Amphetamines Screen Negative (Negative) U Methamphetamines Scrn Negative (Negative) Ur MDMA Scrn (Ecstasy) Negative (Negative) U Benzodiazepines Scrn Negative (Negative) Urine Cocaine Screen Negative (Negative) U Marijuana (THC) Screen Negative (Negative) Ethyl Alcohol ( - 10) mg/dL Point of Care Testing Glucose POC 141 MDM Narrative Medical decision making narrative: Patient brought in by ambulance from home for unresponsive patient. Blood sugar 141. Patient is pupils were dilated, not pinpoint. No Narcan was given. Patient was intubated with 7.0 ETT. Sister has [id number], she had called neighbor to do wellness check. Had not heard from her since yesterday. Neighbor found her in the living room on her back unresponsive. 911 was called. Sister talked to EMS services. Patient is DNR however is amenable for intubation. No CPR. Sister spoke with me by phone, she is on her way here in 40 minutes. She would like to talk to social media job titles regarding end of life and possible extubation. Patient has been very depressed recently but no SI discussion according to sister. Does not drink alcohol. Patient has end-stage liver disease. Patient does self paracentesis After history and exam CBC CMP EKG troponin ammonia level drug screen Tylenol aspirin alcohol CT head cervical spine chest abdomen and pelvis MDM CC: Complicating co-morbidities: End-stage liver disease Data collected from: EMS/sister is power of banking attorney Medical records reviewed: Differential considered: Includes but not limited to Exam documented above, pertinent findings include: Lab Test results independently reviewed as above. Pertinent findings: Independently reviewed EKG Imaging studies independently reviewed: Consultations: Treatments: Re-evaluations: Discussion: Diagnosis: 6:00 p.m.. Sign out to Dr. Zaman, labs and imaging are pending. Sister on the way to talk. Social work consult in place <Yeny Zaman, DO - Last Filed: 03/01/23 06:10> Lab Data Labs: Lab Results 02/28/23 02/28/23 02/28/23 Range/Units 17:40 17:40 17:40 WBC 19.9 H (4.5-11.0) X10^3/uL RBC 3.77 L (4.0-5.2) X10^6/uL Hgb 11.3 L (12.0-16.0) g/dL Hct 33.0 L (36-46) % MCV 87.3 (80-100) fL MCH 29.9 (26-34) PG MCHC 34.2 (30-36) % RDW 23.0 H (11.6-14.8) % Plt Count 242 (150-400) X10^3/uL Neut % (Auto) Not Reportable Lymph % (Auto) Not Reportable [place] % (Auto) Not Reportable Eos % (Auto) Not Reportable Baso % (Auto) Not Reportable Lymph # (Auto) Not Reportable [place] # (Auto) Not Reportable Baso # (Auto) Not Reportable Total Counted 100 Seg Neutrophils % 85.0 H (38-70) % Band Neutrophils % 6.0 (3-7) % Lymphocytes % (Manual) 5.0 L (25-45) % Monocytes % (Manual) 4.0 (2-11) % Neutrophils # (Manual) 78977 H (9091-2274) /uL Toxic Granulation Present H RBC Morphology See below Anisocytosis 1+ H Ovalocytes 1+ H [place] Cells 1+ H PT 18.4 H (10.1-12.7) SECONDS INR 1.6 H (0.9-1.3) APTT 33 (26-36) SECONDS ABG pH (7.35-7.45) ABG pCO2 (35-45) mmHg ABG pO2 (80-100) mmHg ABG HCO3 (23-27) mmol/L ABG Total CO2 (23-27) mmol/L ABG O2 Saturation (95-100) % ABG Base Excess (-2-3) mmol/L FiO2 Sodium (137-145) mmol/L Potassium (3.4-5.1) mmol/L Chloride (98-107) mmol/L Carbon Dioxide (22-32) mmol/L BUN (7-17) mg/dL Creatinine (0.52-1.04) mg/dL Estimated GFR (>60) mL/min BUN/Creatinine Ratio (6-22) Glucose (80-110) mg/dL Lactate (0.7-2.1) mmol/L Calcium (8.4-10.2) mg/dL Total Bilirubin (0.2-1.3) mg/dL AST (14-36) IU/L ALT (<35) IU/L Alkaline Phosphatase (38-126) U/L Ammonia (9-30) umol/L Total Creatine Kinase 52 (30-135) U/L Troponin I < 0.012 (0.01-0.034) ng/mL Total Protein (6.3-8.2) g/dL Albumin (3.5-5.0) g/dL Globulin (1.7-4.1) g/dL Albumin/Globulin Ratio (1.0-2.8) Procalcitonin 2.77 H (<0.5) ng/mL Urine Color Urine Appearance Urine pH (4.5-8.0) Ur Specific [place] (1.000-1.035) Urine Protein (Negative) Urine Glucose (UA) (Negative) g/dL Urine Ketones (NEGATIVE) Urine Occult Blood (Negative) Urine Nitrate (Negative) Urine Bilirubin (NEGATIVE) Ur Bilirubin Confirm (Negative) Urine Urobilinogen (0.2) E.U./dL Ur Leukocyte Esterase (NEGATIVE) Urine RBC (0-5/HPF) Urine WBC (0-5/HPF) Ur Squamous Epith Cells (0-5/HPF) Urine Bacteria (None) Hyaline Casts (None) Granular Casts (None) Urine Mucus (Negative) Urine Yeast (None) Ur Culture Indicated? Salicylates 1.1 (<20) mg/dL U Opiates 300ng/mL cut (Negative) Ur Oxycodone Screen (Negative) Urine Methadone Screen (Negative) Acetaminophen < 10 (10-30) ug/mL Ur Barbiturates Screen (Negative) U Tricyclic Antidepress (Negative) Ur Phencyclidine Scrn (Negative) Ur Amphetamines Screen (Negative) U Methamphetamines Scrn (Negative) Ur MDMA Scrn (Ecstasy) (Negative) U Benzodiazepines Scrn (Negative) Urine Cocaine Screen (Negative) U Marijuana (THC) Screen (Negative) Ethyl Alcohol < 10 ( - 10) mg/dL 02/28/23 02/28/23 02/28/23 Range/Units 17:40 17:40 17:40 WBC (4.5-11.0) X10^3/uL RBC (4.0-5.2) X10^6/uL Hgb (12.0-16.0) g/dL Hct (36-46) % MCV (80-100) fL MCH (26-34) PG MCHC (30-36) % RDW (11.6-14.8) % Plt Count (150-400) X10^3/uL Neut % (Auto) Lymph % (Auto) [place] % (Auto) Eos % (Auto) Baso % (Auto) Lymph # (Auto) [place] # (Auto) Baso # (Auto) Total Counted Seg Neutrophils % (38-70) % Band Neutrophils % (3-7) % Lymphocytes % (Manual) (25-45) % Monocytes % (Manual) (2-11) % Neutrophils # (Manual) (6898-6685) /uL Toxic Granulation RBC Morphology Anisocytosis Ovalocytes Maia Cells PT (10.1-12.7) SECONDS INR (0.9-1.3) APTT (26-36) SECONDS ABG pH (7.35-7.45) ABG pCO2 (35-45) mmHg ABG pO2 (80-100) mmHg ABG HCO3 (23-27) mmol/L ABG Total CO2 (23-27) mmol/L ABG O2 Saturation (95-100) % ABG Base Excess (-2-3) mmol/L FiO2 Sodium 125 L (137-145) mmol/L Potassium 6.8 H* (3.4-5.1) mmol/L Chloride 99 (98-107) mmol/L Carbon Dioxide 13 L (22-32) mmol/L BUN 69 H (7-17) mg/dL Creatinine 2.59 H (0.52-1.04) mg/dL Estimated GFR 20 L (>60) mL/min BUN/Creatinine Ratio 26.6 H (6-22) Glucose 118 H (80-110) mg/dL Lactate 7.1 H* (0.7-2.1) mmol/L Calcium 8.7 (8.4-10.2) mg/dL Total Bilirubin 4.7 H (0.2-1.3) mg/dL AST 35 (14-36) IU/L ALT 33 (<35) IU/L Alkaline Phosphatase 108 (38-126) U/L Ammonia 414 H (9-30) umol/L Total Creatine Kinase (30-135) U/L Troponin I (0.01-0.034) ng/mL Total Protein 5.5 L (6.3-8.2) g/dL Albumin 2.3 L (3.5-5.0) g/dL Globulin 3.2 (1.7-4.1) g/dL Albumin/Globulin Ratio 0.7 L (1.0-2.8) Procalcitonin (<0.5) ng/mL Urine Color Urine Appearance Urine pH (4.5-8.0) Ur Specific [place] (1.000-1.035) Urine Protein (Negative) Urine Glucose (UA) (Negative) g/dL Urine Ketones (NEGATIVE) Urine Occult Blood (Negative) Urine Nitrate (Negative) Urine Bilirubin (NEGATIVE) Ur Bilirubin Confirm (Negative) Urine Urobilinogen (0.2) E.U./dL Ur Leukocyte Esterase (NEGATIVE) Urine RBC (0-5/HPF) Urine WBC (0-5/HPF) Ur Squamous Epith Cells (0-5/HPF) Urine Bacteria (None) Hyaline Casts (None) Granular Casts (None) Urine Mucus (Negative) Urine Yeast (None) Ur Culture Indicated? Salicylates (<20) mg/dL U Opiates 300ng/mL cut (Negative) Ur Oxycodone Screen (Negative) Urine Methadone Screen (Negative) Acetaminophen (10-30) ug/mL Ur Barbiturates Screen (Negative) U Tricyclic Antidepress (Negative) Ur Phencyclidine Scrn (Negative) Ur Amphetamines Screen (Negative) U Methamphetamines Scrn (Negative) Ur MDMA Scrn (Ecstasy) (Negative) U Benzodiazepines Scrn (Negative) Urine Cocaine Screen (Negative) U Marijuana (THC) Screen (Negative) Ethyl Alcohol ( - 10) mg/dL 02/28/23 02/28/23 02/28/23 Range/Units 18:32 18:48 18:48 WBC (4.5-11.0) X10^3/uL RBC (4.0-5.2) X10^6/uL Hgb (12.0-16.0) g/dL Hct (36-46) % MCV (80-100) fL MCH (26-34) PG MCHC (30-36) % RDW (11.6-14.8) % Plt Count (150-400) X10^3/uL Neut % (Auto) Lymph % (Auto) [place] % (Auto) Eos % (Auto) Baso % (Auto) Lymph # (Auto) [place] # (Auto) Baso # (Auto) Total Counted Seg Neutrophils % (38-70) % Band Neutrophils % (3-7) % Lymphocytes % (Manual) (25-45) % Monocytes % (Manual) (2-11) % Neutrophils # (Manual) (2196-8853) /uL Toxic Granulation RBC Morphology Anisocytosis Ovalocytes [place] Cells PT (10.1-12.7) SECONDS INR (0.9-1.3) APTT (26-36) SECONDS ABG pH 7.27 L* (7.35-7.45) ABG pCO2 29.8 L (35-45) mmHg ABG pO2 109 H (80-100) mmHg ABG HCO3 14 L (23-27) mmol/L ABG Total CO2 15 L (23-27) mmol/L ABG O2 Saturation 98 (95-100) % ABG Base Excess -13.0 L (-2-3) mmol/L FiO2 25 Sodium (137-145) mmol/L Potassium (3.4-5.1) mmol/L Chloride (98-107) mmol/L Carbon Dioxide (22-32) mmol/L BUN (7-17) mg/dL Creatinine (0.52-1.04) mg/dL Estimated GFR (>60) mL/min BUN/Creatinine Ratio (6-22) Glucose (80-110) mg/dL Lactate (0.7-2.1) mmol/L Calcium (8.4-10.2) mg/dL Total Bilirubin (0.2-1.3) mg/dL AST (14-36) IU/L ALT (<35) IU/L Alkaline Phosphatase (38-126) U/L Ammonia (9-30) umol/L Total Creatine Kinase (30-135) U/L Troponin I (0.01-0.034) ng/mL Total Protein (6.3-8.2) g/dL Albumin (3.5-5.0) g/dL Globulin (1.7-4.1) g/dL Albumin/Globulin Ratio (1.0-2.8) Procalcitonin (<0.5) ng/mL Urine Color [place] Urine Appearance Clear Urine pH 5.0 (4.5-8.0) Ur Specific [place] 1.025 (1.000-1.035) Urine Protein 1+ H (Negative) Urine Glucose (UA) Negative (Negative) g/dL Urine Ketones Trace H (NEGATIVE) Urine Occult Blood 2+ H (Negative) Urine Nitrate Positive H (Negative) Urine Bilirubin 2+ H (NEGATIVE) Ur Bilirubin Confirm Positive H (Negative) Urine Urobilinogen 4.0 H (0.2) E.U./dL Ur Leukocyte Esterase Negative (NEGATIVE) Urine RBC 5-10/hpf H (0-5/HPF) Urine WBC 1-5/hpf (0-5/HPF) Ur Squamous Epith Cells 10-30 /hpf H (0-5/HPF) Urine Bacteria Moderate (10-30) H (None) Hyaline Casts 10-30/lpf (None) Granular Casts 1-5/lpf (None) Urine Mucus 1+ H (Negative) Urine Yeast 0-1/hpf (None) Ur Culture Indicated? Specimen cultured Salicylates (<20) mg/dL U Opiates 300ng/mL cut Negative (Negative) Ur Oxycodone Screen Negative (Negative) Urine Methadone Screen Negative (Negative) Acetaminophen (10-30) ug/mL Ur Barbiturates Screen Negative (Negative) U Tricyclic Antidepress Positive H (Negative) Ur Phencyclidine Scrn Negative (Negative) Ur Amphetamines Screen Negative (Negative) U Methamphetamines Scrn Negative (Negative) Ur MDMA Scrn (Ecstasy) Negative (Negative) U Benzodiazepines Scrn Negative (Negative) Urine Cocaine Screen Negative (Negative) U Marijuana (THC) Screen Negative (Negative) Ethyl Alcohol ( - 10) mg/dL Point of Care Testing Glucose POC [address] scan - head: Radiologist's Impression: [address] [address] XRay Report Signed Patient: Priti Kuhn MR#: [id number] : 06/11/1963 Acct:[id number] Age/Sex: 59 / F Date of Service: 02/28/23 Loc: ED Accession Number: [id number] ?? Procedure: XR lumbar spine 2-3V Ordering Provider: Ibrahima Avalos MD PROCEDURE:? XR LUMBAR SPINE 2-3V ? INDICATIONS:? Low back pain ? TECHNIQUE:? 3 views of the lumbar spine were acquired.? ? COMPARISON:? [facility], CR, XR LUMBAR SPINE MIN 4V, 07/26/2020, 12:38. ? FINDINGS:? ? Bones:? 5 myu-cah-ibgajks vertebrae are present. Moderate multilevel lumbar spondylosis with degenerative endplate changes, disc space loss, and endplate osteophyte formation.? There is levoscoliosis of the lumbar spine as before.? No acute vertebral body compression fractures.? No suspicious bony lesions.? ? Soft tissues:? Overlying bowel gas pattern is normal.? No suspicious soft tissue calcifications.? ? ? IMPRESSION:? Lumbar spine without acute osseous abnormalities.? Moderate multilevel spondylosis.? Levoscoliosis of the lumbar spine. ? ? Dictated by: Albino Hernandez M.D. on 02/28/2023 at 18:19 ? ? Approved by: Albino Hernandez M.D. on 02/28/2023 at 18:20?? CT - cervical spine: Radiologist's Impression: Close Head CT (Signed) Albino Hernandez - 02/28/23 Chest CTA (Signed) Albino Hernandez - 02/28/[address] (Signed) Albino Hernandez - 02/28/23 Abdomen/Pelvis CT 02/28/23 Abdomen Ultrasound (Signed) Roque Hurley - 12/31/22 Paracentesis Ultrasound (Signed) Larry Adams - 12/28/22 Abdomen Ultrasound (Signed) Lois Horton - 12/25/22 Abdomen Ultrasound (Signed) Larry Adams - 12/21/22 Paracentesis Ultrasound (Signed) Santiago De La Rosa - 12/18/22 Paracentesis Ultrasound (Signed) Estrella,Tomyu - 12/14/22 Paracentesis Ultrasound (Signed) Jeovanny Renteria - 12/11/22 Paracentesis Ultrasound (Signed) Estrella,Tomyu - 12/07/22 Paracentesis Ultrasound (Signed) Albino Hernandez - 12/04/22 Paracentesis Ultrasound (Signed) Estrella,Tomyu - 11/30/22 Paracentesis Ultrasound (Signed) Call,Juarez - 11/28/22 Paracentesis Ultrasound (Signed) Estrella,Aranzau - 11/15/22 Paracentesis Ultrasound (Signed) Larry Adams - 11/12/22 Thoracic Spine X-Ray (Signed) Fabby Lee - 11/07/22 Lumbar Spine X-Ray (Signed) Fabby Lee - 11/07/22 Paracentesis Ultrasound (Signed) Larry Adams - 11/07/22 Abdomen Ultrasound (Signed) Rupert Sterling - 09/12/22 Abdomen/Pelvis CT (Signed) Natan Benz - 09/11/22 Pelvis Ultrasound (Signed) Call,Juarez - 06/15/21 Abdomen/Pelvis CT (Signed) Call,Juarez - 06/15/21 Abdomen Ultrasound (Signed) Call,Juarez - 06/15/21 Launch?[place] [address] CT Scan Report Signed Patient: Ashwini Leonard MR#: [id number] : 1955 Acct:[id number] Age/Sex: 67 / F Date of Service: 02/28/23 Loc: ED Accession Number: [id number] ?? Procedure: CT cervical spine wo con Ordering Provider: Ibrahima Avalos MD PROCEDURE:? CT CERVICAL SPINE WO CON ? INDICATIONS:? found down, intubated ? TECHNIQUE:? Noncontrast 3 mm thick sections acquired from the skull base to the T4 level.? Sagittal and coronal reformats were then constructed.? For radiation dose reduction, the following was used:? automated exposure control, adjustment of mA and/or kV according to patient size.? ? COMPARISON:? None. ? FINDINGS:? Image quality:? Excellent.? ? Bones:? No acute fractures or dislocations.? No acute compression fractures of the vertebral bodies. Craniocervical junction is intact. C1-C2 relationship is preserved. Visualized superior ribs are intact.? Moderate multilevel cervical spondylosis throughout the imaged spine. ? Soft tissues:? Prevertebral soft tissues are normal in thickness.? No paravertebral hematomas.? No apical pneumothoraces.? ? ? IMPRESSION:? CT cervical spine without acute fracture or traumatic malalignment.? Moderate multilevel cervical spondylosis. ? Dictated by: Albino Hernandez M.D. on 02/28/2023 at 18:23 ? ? Approved by: Albino Hernandez M.D. on 02/28/2023 at 18:25?? CT scan - chest: Radiologist's Impression: Close Head CT (Signed) Albino Hernandez - 02/28/23 Chest CTA (Signed) Albino Hernandez - 02/28/[address] (Signed) Albino Hernandez - 02/28/23 Abdomen/Pelvis CT 02/28/23 Abdomen Ultrasound (Signed) Roque Hurley - 12/31/22 Paracentesis Ultrasound (Signed) Larry Adams - 12/28/22 Abdomen Ultrasound (Signed) Lois Horton - 12/25/22 Abdomen Ultrasound (Signed) Larry Adams - 12/21/22 Paracentesis Ultrasound (Signed) Santiago De La Rosa - 12/18/22 Paracentesis Ultrasound (Signed) Tom De La Rosayu - 12/14/22 Paracentesis Ultrasound (Signed) Jeovanny Renteria - 12/11/22 Paracentesis Ultrasound (Signed) Santiago De La Rosa - 12/07/22 Paracentesis Ultrasound (Signed) Albino Hernandez - 12/04/22 Paracentesis Ultrasound (Signed) Tom De La Rosayu - 11/30/22 Paracentesis Ultrasound (Signed) Juarez [place] - 11/28/22 Paracentesis Ultrasound (Signed) Aranza De La Rosau - 11/15/22 Paracentesis Ultrasound (Signed) Larry Adams - 11/12/22 Thoracic Spine X-Ray (Signed) Fabby Lee - 11/07/22 Lumbar Spine X-Ray (Signed) Fabby Lee - 11/07/22 Paracentesis Ultrasound (Signed) Larry Adams - 11/07/22 Abdomen Ultrasound (Signed) Rupert Sterling - 09/12/22 Abdomen/Pelvis CT (Signed) Natan Benz - 09/11/22 Pelvis Ultrasound (Signed) Call,Juarez - 06/15/21 Abdomen/Pelvis CT (Signed) Call,Juarez - 06/15/21 Abdomen Ultrasound (Signed) Call,Juarez - 06/15/21 Launch?[address] [address] [address] Scan Report Signed Patient: Ashwini Leonard MR#: [id number] : 1955 Acct:[id number] Age/Sex: 67 / F Date of Service: 02/28/23 Loc: ED Accession Number: [id number] ?? Procedure: CT angio chest PE protocol Ordering Provider: Ibrahima Avalos MD PROCEDURE:? CT ANGIO CHEST PE PROTOCOL ? INDICATIONS:? found down, intubated ? TECHNIQUE:? After the administration of intravenous contrast, 2 mm thick sections acquired from the pulmonary apices to the posterior costophrenic angles.? 3-dimensional maximum intensity projection (MIP) coronal and sagittal reformats were then acquired through the thorax.? For radiation dose reduction, the following was used:? automated exposure control, adjustment of mA and/or kV according to patient size.? ? COMPARISON:? None. ? FINDINGS: ? Image quality:? Diagnostic? ? Pulmonary arteries:? Pulmonary arteries are normal in size, and demonstrate no intraluminal filling defects to suggest central pulmonary embolism.? ? ? Lungs and pleura:? Mild bibasilar atelectasis.? Mild upper lobe predominant pulmonary emphysematous changes.? No pleural effusions or pneumothorax.? Central and peripheral airways are patent.? ? ? Mediastinum:? Heart size is normal, without pericardial effusion.? No mediastinal or hilar adenopathy.? Thoracic aorta is normal in caliber and enhancement.? Large hiatal hernia. ? Bones and chest wall:? No suspicious bony lesions.? Ribs and thoracic spine appear intact throughout.? Thyroid gland unremarkable.? No axillary or supraclavicular adenopathy.? No acute compression fracture.? ? Abdomen:? Visualized upper abdominal structures are better evaluated on dedicated CT of the abdomen and pelvis which is dictated as a separate report.? ? ? IMPRESSION:? CT angiogram of the chest without acute pulmonary emboli.? No acute right-sided heart strain.? Bibasilar atelectasis.? No focal airspace disease.? Upper lobe predominant pulmonary emphysema.? Atherosclerosis. No acute osseous abnormalities. ? Large hiatal hernia. ? ? Dictated by: Albino Hernandez M.D. on 02/28/2023 at 18:30 ? ? Approved by: Albino Hernandez M.D. on 02/28/2023 at 18:35?? ECG Data Attestation: I personally reviewed and interpreted this ECG as follows: Interpretation: Sinus tachycardia rate of 117 HI 150 QRS of 104 QTC 454. Patient does have peaked T-waves at least in lateral leads. MDM Narrative Medical decision making narrative: Patient brought in by ambulance from home for unresponsive patient. Blood sugar 141. Patient is pupils were dilated, not pinpoint. No Narcan was given. Patient was intubated with 7.0 ETT. Sister has avyyu-kn-pryfmtps, she had called neighbor to do wellness check. Had not heard from her since yesterday. Neighbor found her in the living room on her back unresponsive. 911 was called. Sister talked to EMS services. Patient is DNR however is amenable for intubation. No CPR. Sister spoke with me by phone, she is on her way here in 40 minutes. She would like to talk to social media job titles regarding end of life and possible extubation. Patient has been very depressed recently but no SI discussion according to sister. Does not drink alcohol. Patient has end-stage liver disease. Patient does self paracentesis After history and exam CBC CMP EKG troponin ammonia level drug screen Tylenol aspirin alcohol CT head cervical spine chest abdomen and pelvis [facility] CC: Complicating co-morbidities: End-stage liver disease Data collected from: EMS/sister is power of banking attorney Medical records reviewed: Differential considered: Includes but not limited to Exam documented above, pertinent findings include: Lab Test results independently reviewed as above. Pertinent findings: Independently reviewed EKG Imaging studies independently reviewed: Consultations: Treatments: Re-evaluations: Discussion: Diagnosis: 6:00 p.m.. Sign out to Dr. Zaman, labs and imaging are pending. Sister on the way to talk. Social work consult in place. Patient seen independently evaluated by myself she is intubated, unresponsive. Reportedly received ketamine and rocuronium in the field. Patient labs, imaging reviewed. Patient's family is on the they had asked to wait but likely withdrawal of care. Did initially order medications for her hyperkalemia and came kidney injury and lactic acidosis but sister at that point had arrived and after discussion would like for withdrawal of care. ABG shows a pH 7.269 pCO2 of 29 with a PO2 of 109 and a bicarb of 13. She presents with DPOA paperwork that does name her as decision make and confirmed signed by patient. Plan for extubation here in the department. Patient shortly after extubation with sister and friend/grief counselor at bedside at with a time of was 8:25 p.m.. Patient's sister was in the room as well as a friend who is also a grief counselor. Discharge Plan Departure Patient Disposition: Clinical Impression: Altered mental status, Hyperkalemia, Acute kidney injury, Acidosis, lactic Date/Time: 02/28/23 20:25
[2023-02-28 18:13] LABS: INR 1.6 (0.9-1.3); Prothrombin Time 18.4 SECONDS (10.1-12.7)
[2023-02-28 18:15] LABS: PTT Partial Thromboplastin Tim 33 SECONDS (26-36)
[2023-02-28 18:16] LABS: Hemoglobin 11.3 g/dL (12.0-16.0); Mean Corpuscular HGB Conc 34.2 % (30-36); Mean Corpuscular Hemoglobin 29.9 PG (26-34); Mean Corpuscular Volume 87.3 fL (80-100); Platelet Count 242 X10^3/uL (150-400); Red Blood Cell Count 3.77 X10^6/uL (4.0-5.2); White Blood Cell Count 19.9 X10^3/uL (4.5-11.0)
[2023-02-28 18:18] LABS: Add Manual Diff / Slide Review YES
[2023-02-28 18:20] LABS: Albumin 2.3 g/dL (3.5-5.0); Albumin Globulin Ratio 0.7 (1.0-2.8); Alkaline Phosphatase 108 U/L (38-126); Aspartate Aminotransferase 35 IU/L (14-36); BUN Creatinine Ratio 26.6 (6-22); Bilirubin Total 4.7 mg/dL (0.2-1.3); Blood Urea Nitrogen 69 mg/dL (7-17); Calcium 8.7 mg/dL (8.4-10.2); Carbon Dioxide 13 mmol/L (22-32); Chloride 99 mmol/L (98-107); Estimated Glomerular Filt Rate 20 mL/min (>60); Globulin 3.2 g/dL (1.7-4.1); Glucose 118 mg/dL (80-110); HEMOLYSIS < 15 (0-50); Sodium 125 mmol/L (137-145); Total Protein 5.5 g/dL (6.3-8.2)
[2023-02-28 18:21] LABS: Acetaminophen < 10 ug/mL (10-30); Ammonia (NH3) 414 umol/L (9-30); Creatine Kinase 52 U/L (30-135); Ethanol (ETOH) < 10 mg/dL; Salicylate 1.1 mg/dL (<20)
[2023-02-28 18:26] LABS: Alanine Aminotransferase 33 IU/L (<35)
[2023-02-28] MEDS: THIAMINE 200 MG/2 ML VIAL 100 MG IM (18:26)
[2023-02-28 18:30] LABS: Potassium 6.8 mmol/L (3.4-5.1)
[2023-02-28 18:32] LABS: Lactate (Lactic Acid) 7.1 mmol/L (0.7-2.1); Troponin I < 0.012 ng/mL (0.01-0.034)
[2023-02-28 18:37] LABS: Neutrophils Absolute Manual 18109 /uL (3000-5900); Procalcitonin 2.77 ng/mL (<0.5); Total Cells Counted 100
[2023-02-28 18:38] LABS: Anisocytosis 1+; Burr Cells 1+; Toxic Granulation Present
[2023-02-28 18:39] LABS: Ovalocytes 1+
[2023-02-28 18:48] LABS: Fractionated Inspired Oxygen 25; HCO3 ABG 14 mmol/L (23-27); Oxygen Saturation ABG 98 % (95-100); PCO2 ABG 29.8 mmHg (35-45); PO2 ABG 109 mmHg (80-100); TCO2 ABG 15 mmol/L (23-27); pH ABG 7.27 (7.35-7.45)
--- NOTE | 2023-02-28 19:44 | PC.NURSE ---
Pt sister arrived at 1830,She is POA and had declined medication and tx stating she knows what her sister's wishes are. She provided current documentation to support this. Planning to extubate when the sister is ready. Currently no fluids being given, VS being monitored.
[2023-02-28 19:59] LABS: Appearance Urine UA CLEAR; Bilirubin Urine UA 2+ (NEGATIVE); Color Urine UA ORANGE; Glucose Urine UA NEGATIVE (Negative); Ketones Urine UA TRACE (NEGATIVE); Leukocyte Esterase Urine UA NEGATIVE (NEGATIVE); Nitrite Urine UA POSITIVE (Negative); Occult Blood Urine UA 2+ (Negative); Protein Urine UA 1+ (Negative); Specific Gravity Urine UA 1.025 (1.000-1.035)
--- NOTE | 2023-02-28 20:00 | CM.SWNOTE ---
ED PLASTICATOR Note Patient presents to ED via EMS after found down on the ground by neighbor, patient was intubated in the field. Patient's Sister Shivani endorses she is power of sports attorney and provides DPOA and living will documentation. Patient's sister meets with ED provider Dr. Zaman and it is discussed that patient's wishes are DNR/DNI. Patient's sister and ED provider discuss extubation. Patient's sister states she is friends with a grief counselor and called her to be with her in ED. Sister denies any needs from PLASTICATOR at this time. Plan: patient to be extubated after further discussion with sister, patient likely to be admitted for comfort care and withdraw of care GIANNI Rockwell
--- NOTE | 2023-02-28 20:01 | PC.NURSE ---
Pt extubated at 1999 by RT per sister request.
[2023-02-28 20:02] LABS: Reflexed Lactate in 2 Hours Y
[2023-02-28 20:04] LABS: UR Morphine/Opiate cutoff 300 Negative (Negative); Ur Creatinine Normal (Normal); Ur Specific Gravity Normal (Normal); Urine Amphetamines Negative (Negative); Urine Barbiturates Negative (Negative); Urine Benzodiazepines Negative (Negative); Urine Cocaine Negative (Negative); Urine MDMA Negative (Negative); Urine Methadone Negative (Negative); Urine Methamphetamines Negative (Negative); Urine Oxycodone Negative (Negative); Urine Phencyclidine Negative (Negative); Urine Tetrahydrocannabinol Negative (Negative); Urine Tricyclic Antidepressant Positive (Negative); Urine pH Normal (Normal)
[2023-02-28 20:06] LABS: Ictotest Urine Positive (Negative)
--- NOTE | 2023-02-28 20:15 | PC.NURSE ---
Pt o2 dipped into 70's directly after extubation, agonal breathing lasting until 2014, very slow pulse palpated at 2017, pulse no longer palpable at 2018.
--- NOTE | 2023-02-28 20:24 | PC.NURSE ---
Dr Zaman in room room called time of at 2024.
[2023-02-28 20:25] LABS: Bacteria Urine Moderate (10-30); RBC Urine 5-10/HPF (0-5/HPF); Squamous Epithelial Cell Urine 10-30 /HPF (0-5/HPF); WBC Urine 1-5/HPF (0-5/HPF)
[2023-02-28 20:26] LABS: Culture Indicated Urine Specimen Cultured; Granular Casts Urine 1-5/LPF; Hyaline Casts Urine 10-30/LPF; Mucus Urine 1+ (Negative)
== END 2023-03-01 03:15 | disposition expired ==
PROVIDERS: Emergency Medicine; Emergency Provider Emergency Medicine; PCP Nurse Practitioner Family
DX: R41.82 Altered mental status, unspecified (principal); E87.5 Hyperkalemia; N17.9 Acute kidney failure, unspecified; E87.20 Acidosis, unspecified
CPT/HCPCS: 36415; 36600; 70450; 71275; 72125; 74177; 80053; 80305; 80320; 80329; 81001; 82140; 82550; 82805; 83605; 84145; 84484; 85007; 85025; 85610; 85730; 87086; 93005; 94799; 96372; 99284; 99285; 99291; 99292; G0480; Q9967